=== PATIENT | male | born 1945 | race Caucasian/White ===

== ENCOUNTER 2021-01-23 17:46 | Inpatient (IN) | payer OTHER ==
[~2021-01-23] VITALS: Ht 175.3 cm; Wt 125.3 kg
[2021-01-23 21:33] VITALS: BP 128/83
[2021-01-23] MEDS ORDERED: MAGNESIUM HYDROXIDE 2,400 MG/30 ML ORAL.SUSP. PO PRN (21:45)
[2021-01-23] MEDS ORDERED: METHYL SALICYLATE/MENTHOL TOPICAL OINTMENT 57GM TUBE. TP PRN (21:45)
[2021-01-23] MEDS ORDERED: MAG HYDROX/AL HYDROX/SIMETH 30 ML ORAL.SUSP PO PRN (21:45)
[2021-01-23] MEDS ORDERED: DILT60TA PO (22:44)
[2021-01-23] MEDS ORDERED: FAMO20TA5 PO (22:44)
[2021-01-23] MEDS ORDERED: METO25TA4 PO (22:44)
[2021-01-23] MEDS ORDERED: FINA5TAB4 PO (22:44)
[2021-01-23] MEDS ORDERED: TAMS0.4C97 PO (22:44)
[2021-01-23] MEDS ORDERED: POTA-121 PO (22:44)
[2021-01-23] MEDS ORDERED: HALO1TAB PO (22:44)
[2021-01-23] MEDS ORDERED: DIVA250T PO (22:44)
[2021-01-23] MEDS ORDERED: CLOT15CR23 TP (22:44)
[2021-01-23] MEDS ORDERED: CARB15DR3 EACHEYE (22:44)
[2021-01-23] MEDS ORDERED: TRAZ-125 PO (22:44)
[2021-01-23] MEDS ORDERED: DOCU100C28 PO (22:44)
[2021-01-23] MEDS ORDERED: CIME200T6 PO (22:44)
[2021-01-23] MEDS ORDERED: FURO40TA4 PO (22:44)
[2021-01-23] MEDS ORDERED: POLY2500 PO (22:44)
[2021-01-23] MEDS ORDERED: APIX5TAB3 PO (22:44)
[2021-01-23] MEDS ORDERED: PECT2.8L3 MM (22:44)
[2021-01-23] MEDS ORDERED: CLOTRIMAZOLE 1% TOPICAL CREAM 30GM TUBE. TP PRN (23:00)
[2021-01-23] MEDS ORDERED: ANTI-COAG MONITOR BY PHARMACY. MC PRN (23:15)
[2021-01-23] MEDS ORDERED: BENZOCAINE/MENTHOL LOZNGE 18'S BOX. PO PRN (23:15)
[2021-01-23] MEDS ORDERED: POLYVINYL ALCOHOL 1.4% OPHTH SOLUTION 15ML BOTTLE. OU PRN (23:15)
[2021-01-24 03:53] LABS: BACTERIA,URINE 0 /HPF (0-FEW); BILIRUBIN,URINE NEG (NEG); CLARITY,URINE CLEAR; COLOR,URINE YELLOW; GLUCOSE,URINE NEG (NEG); NITRITE,URINE NEG (NEG); RBC,URINE 0 /HPF (0-2); WBC,URINE 0 /HPF (0-4)
[2021-01-24 06:30] LABS: BASO % 1 % (0-3); EOS # 0.3 x10^3/uL (0.0-0.7); EOS % 5 % (0-3); HEMATOCRIT 44.1 % (39.0-53.0); HEMOGLOBIN 14.5 g/dL (13.0-17.5); LYMPH # 1.5 x10^3/uL (1.0-4.8); LYMPH % 28 % (24-48); MEAN CORPUSCULAR HEMOGLOBIN 31 pg (25-35); MEAN CORPUSCULAR HGB CONC 33 g/dL (31-37); MEAN CORPUSCULAR VOLUME 95 fL (79-100); MONO # 0.8 x10^3/uL (0.0-1.1); MONO % 16 % (0-9); NEUT # 2.6 x10^3uL (1.8-7.7); NEUT % 50 % (31-73); PLATELET COUNT 196 x10^3/uL (140-400); RED BLOOD COUNT 4.63 x10^6/uL (4.30-5.70); RED CELL DISTRIBUTION WIDTH 13.7 % (11.5-14.5); WHITE BLOOD COUNT 5.2 x10^3/uL (4.0-11.0)
[2021-01-24 06:34] VITALS: BP 112/73
[2021-01-24 06:39] LABS: MAGNESIUM 2.4 mg/dL (1.8-2.4)
[2021-01-24 06:40] LABS: ALBUMIN/GLOBULIN RATIO 0.7 (1.0-1.7); CALCIUM 9.9 mg/dL (8.5-10.1); CREATININE 0.7 mg/dL (0.7-1.3); GFR 110.2; POTASSIUM 4.4 mmol/L (3.5-5.1); TOTAL BILIRUBIN 0.5 mg/dL (0.2-1.0); TOTAL PROTEIN 7.2 g/dL (6.4-8.2)
[2021-01-24 06:41] LABS: VAL ACID 26 mcg/mL (50-100)
[2021-01-24] MEDS ORDERED: CIMETIDINE 200 MG PO SCH (09:00)
[2021-01-24] MEDS ORDERED: HALOPERIDOL 1 MG TABLET PO SCH (09:00)
[2021-01-24] MEDS: POTASSIUM CHLORIDE 20 MEQ TABLET.ER. PO SCH (09:06)
[2021-01-24] MEDS: FUROSEMIDE 40 MG TABLET PO SCH (09:06)
[2021-01-24] MEDS: DOCUSATE SODIUM 100 MG CAPSULE PO SCH (09:07)
[2021-01-24] MEDS: FAMOTIDINE 20 MG TABLET PO SCH (09:07)
[2021-01-24] MEDS: DIVALPROEX SODIUM 250 MG TABLET.DR. PO SCH ×2 (09:07→20:37)
[2021-01-24] MEDS: FINASTERIDE 5 MG TABLET. PO SCH (09:07)
[2021-01-24] MEDS: TAMSULOSIN 0.4 MG CAP.ER.24H. PO SCH (09:08)
[2021-01-24] MEDS: APIXABAN 5 MG TABLET. PO SCH ×2 (09:08→20:37)
[2021-01-24] MEDS: METOPROLOL TART IMMED RELEASE 25 MG TABLET. PO SCH ×2 (09:08→20:38)
[2021-01-24] MEDS: NYSTATIN TOPICAL POWDER 15GM BOTTLE. TP SCH ×2 (09:09→20:36)
[2021-01-24 15:47] VITALS: BP 103/71
--- NOTE | 2021-01-24 16:48 | EKG ---
[address] [address] Test Date: 2021-01-24 Test Time: 15:24:44 Pat Name: ABHINAV WILD Department: Room: [facility] 1 Gender: M Continuous Drier Helper: : [id number] Requested By: AURA HOLDER Order Number: [id number] Reading MD: Chau Reich MD Measurements Intervals [place] Rate: P: SD: QRS: QRSD: T: QT: QTc: Interpretive Statements PROBABLE ATRIAL FIBRILLATION POOR QUALITY EKG. Electronically Signed On 01-26-2021 20:45:22 OFFICE MESSENGER HELPER by Chau Reich MD
[2021-01-24] MEDS: POLYETHYLENE GLYCOL 3350 17 GM PACKET. PO SCH (16:55)
[2021-01-24 19:46] LABS: THYROID STIM HORMONE (TSH) 1.73 uIU/mL (0.358-3.740)
[2021-01-24] MEDS: HALOPERIDOL 1 MG TABLET PO SCH (20:37)
[2021-01-24] MEDS: traZODone 100 MG TABLET. PO SCH (20:38)
--- NOTE | 2021-01-24 21:12 | PDOC ---
Exam Note: Elier Note: Please also refer to the separate dictated note~for this date of service dictated separately.~Patient seen individually. Discussed the patient with Nursing staff reviewed the chart.~Reviewed interim history and current functioning. Reviewed vital signs,~Labs/ Radiology~and current medications noted below. Continue current treatment with the changes noted in the dictated addendum note Assessment: Vital Signs/I&O: Vital Signs Date Time Temp Pulse Resp B/P (MAP) Pulse Ox O2 Delivery O2 Flow Rate FiO2 01/24/21 20:38 78 103/71 01/24/21 15:47 97.7 20 94 I & O 01/23/21 01/23/21 01/24/21 15:00 23:00 07:00 Intake Total 0 ml Balance 0 ml Labs: Laboratory Tests Test 01/24/21 02:25 01/24/21 06:06 Urine Collection Type Unknown Urine Color Yellow Urine Clarity Clear Urine pH 8.5 Urine Specific [place] 1.015 Urine Protein Neg (NEG-TRACE) Urine Glucose (UA) Neg mg/dL (NEG) Urine Ketones (Stick) Neg mg/dL (NEG) Urine Blood Neg (NEG) Urine Nitrite Neg (NEG) Urine Bilirubin Neg (NEG) Urine Urobilinogen Dipstick 1.0 mg/dL (0.2 mg/dL) Urine Leukocyte Esterase Neg (NEG) Urine RBC 0 /HPF (0-2) Urine WBC 0 /HPF (0-4) Urine Squamous Epithelial Cells None /LPF Urine Bacteria 0 /HPF (0-FEW) White Blood Count 5.2 x10^3/uL (4.0-11.0) Red Blood Count 4.63 x10^6/uL (4.30-5.70) Hemoglobin 14.5 g/dL (13.0-17.5) Hematocrit 44.1 % (39.0-53.0) Mean Corpuscular Volume 95 fL (79-100) Mean Corpuscular Hemoglobin 31 pg (25-35) Mean Corpuscular Hemoglobin Concent 33 g/dL (31-37) Red Cell Distribution Width 13.7 % (11.5-14.5) Platelet Count 196 x10^3/uL (140-400) Neutrophils (%) (Auto) 50 % (31-73) Lymphocytes (%) (Auto) 28 % (24-48) Monocytes (%) (Auto) 16 % (0-9) H Eosinophils (%) (Auto) 5 % (0-3) H Basophils (%) (Auto) 1 % (0-3) Neutrophils # (Auto) 2.6 x10^3uL (1.8-7.7) Lymphocytes # (Auto) 1.5 x10^3/uL (1.0-4.8) Monocytes # (Auto) 0.8 x10^3/uL (0.0-1.1) Eosinophils # (Auto) 0.3 x10^3/uL (0.0-0.7) Basophils # (Auto) 0.0 x10^3/uL (0.0-0.2) D-Dimer () 0.38 mg/L (0.00-0.50) Sodium Level 140 mmol/L (136-145) Potassium Level 4.4 mmol/L (3.5-5.1) Chloride Level 102 mmol/L (98-107) Carbon Dioxide Level 34 mmol/L (21-32) H Anion Gap 4 (6-14) L Blood Urea Nitrogen 8 mg/dL (8-26) Creatinine 0.7 mg/dL (0.7-1.3) Estimated GFR (Cockcroft-Gault) 110.2 BUN/Creatinine Ratio 11 (6-20) Glucose Level 95 mg/dL (70-99) Calcium Level 9.9 mg/dL (8.5-10.1) Magnesium Level 2.4 mg/dL (1.8-2.4) Iron Level 47 ug/dL (65-175) L Total Iron Binding Capacity 280 ug/dL (250-450) Iron Saturation 17 % (15-34) Total Bilirubin 0.5 mg/dL (0.2-1.0) Aspartate Amino Transferase (AST) 30 U/L (15-37) Alanine Aminotransferase (ALT) 38 U/L (16-63) Alkaline Phosphatase 82 U/L (46-116) Total Protein 7.2 g/dL (6.4-8.2) Albumin 3.0 g/dL (3.4-5.0) L Albumin/Globulin Ratio 0.7 (1.0-1.7) L Triglycerides Level 73 mg/dL (0-150) Cholesterol Level 162 mg/dL (0-200) LDL Cholesterol, Calculated 95 mg/dL (0-100) VLDL Cholesterol, Calculated 14 mg/dL (0-40) Non-HDL Cholesterol Calculated 109 mg/dL (0-129) HDL Cholesterol 53 mg/dL (40-60) Cholesterol/HDL Ratio 3.0 Vitamin B12 Level 614 pg/mL (247-911) 25-Hydroxy Vitamin D Total 23.5 ng/mL (30-100) L Thyroid Stimulating Hormone (TSH) 1.730 uIU/mL (0.358-3.740) Valproic Acid Level 26 mcg/mL (50-100) L Valproic Acid Last Dose Date 01/23/21 Valproic Acid Last Dose Time 0900 Treponema pallidum Antibody Nonreactive (Nonreactive) Current Medications: Meds: Current Medications Medications (Trade) Dose Ordered Sig/Stuart Route PRN Reason Start Time Stop Time Status Last Admin Dose Admin Divalproex Sodium (Depakote) 250 mg BID PO 01/24/21 09:00 01/24/21 20:37 Haloperidol (Haldol) 1 mg BID PO 01/24/21 09:00 01/24/21 19:37 DC 01/24/21 09:08 Trazodone HCl (Desyrel) 100 mg QHS PO 01/24/21 21:00 01/24/21 20:38 Apixaban (Eliquis) 5 mg BID PO 01/24/21 09:00 01/24/21 20:37 Docusate Sodium (Colace) 100 mg DAILY PO 01/24/21 09:00 01/24/21 09:07 Famotidine (Pepcid) 20 mg DAILY PO 01/24/21 09:00 01/24/21 09:07 Finasteride (Proscar) 5 mg DAILY PO 01/24/21 09:00 01/24/21 09:07 Furosemide (Lasix) 40 mg DAILY PO 01/24/21 09:00 01/24/21 09:06 Metoprolol Tartrate (Lopressor) 25 mg BID PO 01/24/21 09:00 01/24/21 09:08 Potassium Chloride (Klor-Con) 20 meq DAILY PO 01/24/21 09:00 01/24/21 09:06 Tamsulosin HCl (Flomax) 0.4 mg DAILY PO 01/24/21 09:00 01/24/21 09:08 Diltiazem HCl (Cardizem 24hr Cd) 120 mg DAILY PO 01/24/21 09:00 01/24/21 09:07 Polyethylene Glycol (miraLAX) 17 gm QMWF PO 01/24/21 16:00 01/24/21 16:55 Nystatin (Nystop) 1 lalo BID TP 01/24/21 09:00 01/24/21 20:36 Haloperidol (Haldol) 1 mg QHS PO 01/24/21 21:00 01/24/21 20:37 I have reviewed the current psychotropics carefully including drug interactions. Risk benefit ratio favors no change other than as noted in my dictated progress note. AURA HOLDER MD Jan 24, 2021 21:12
[2021-01-24 22:38] LABS: THYROXINE 6.4 ug/dL (4.5-12.0)
--- NOTE | 2021-01-24 23:00 | HP ---
DATE OF SERVICE: 01/24/2021 ADMIT DATE: 01/23/2021 PSYCHIATRIC ADMISSION HISTORY/EVALUATION IDENTIFYING DATA: The patient is a 75-year-old male, referred to us from [facility] by his primary care physician, psychiatrist after he was sent to the [facility] on account of an acute exacerbation of his schizoaffective disorder, bipolar type, depressed. The patient had been getting progressively more depressed, hopeless, helpless, worthless, had voiced suicidal ideation with a plan to jump out of a moving van that was taking him to the [facility]. At the Emergency Room in the [facility], he was found to be medically stable, though he had a mild bilateral atelectasis causing some drop in his oxygen saturations and I had talked to Dr. Gillis at the [facility] Emergency Room prior to his transfer to us. He had been depressed about his health issues and being in a [facility], had failed outpatient psychiatric interventions and outpatient psychiatric interventions at [facility] and he was referred for inpatient psychiatric stabilization. CHIEF COMPLAINT: "Yes, I've been depressed. I do have mood swings. Rosa, Rosa, Rosa." The patient was yelling out for the nursing manager, wanting some assistance with lowering his bed, somewhat obsessive, agitated, depressed. HISTORY OF PRESENT ILLNESS: The patient has a long history of schizoaffective disorder, bipolar type. Recently, he has been more depressed, hopeless, helpless, worthless with sleep and appetite changes. He has been paranoid. He has expressed suicidal ideation as above with a plan, but no homicidal ideation. PAST PSYCHIATRIC HISTORY: As above. MEDICAL HISTORY: Hypertension, hyperlipidemia, type 2 diabetes mellitus, atrial fibrillation, schizotypal personality disorder, obesity, impaired ambulation. ALLERGIES: LURASIDONE, ABILIFY, OLANZAPINE, RISPERDAL, VENLAFAXINE, MIRTAZAPINE. Accu-Cheks daily. DIET: ADA. Takes medications whole. Ambulates with walker and wheelchair. CURRENT PSYCHOTROPICS: Depakote 250 mg b.i.d., Haldol 1 mg b.i.d., trazodone 100 mg at bedtime. FAMILY HISTORY: Noncontributory. SOCIAL HISTORY: No history of alcohol, drug abuse, physical/sexual/elder abuse. He is not known to be a perpetrator. Reaction to hospitalization: The patient accepting of it. ASSETS: Supportive family. Supportive living at the [facility]. REVIEW OF SYSTEMS: Ambulation impaired. No CV, , pulmonary, eye, ENT system symptoms on review. MENTAL STATUS EXAM: The patient is oriented to himself, situation. He knew it was 01/2021, president was President Pretty and before him was President Christine, but he felt the date was the . 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 He states he has 5 biological children and 2 "borrowed." Mood is depressed, anxious, somewhat paranoid. No active suicidal or homicidal ideation. Short-term memory has some impairment. Attention span is short. IMPRESSION: Schizoaffective disorder, bipolar type, depressed. Personality disorder, unspecified; anxiety disorder, unspecified; impulse control disorder. Rest as above. PLAN: Admit to Geropsychiatry unit at [facility]. I will see the patient daily individually from a psychiatric standpoint, medical followup, Dr. Padron/Dr. Carrasco. Continue the patient on his current psychotropics. Start Zyprexa p.r.n. 2.5 mg q.2 hours, max 10 mg in 24 hours for psychosis, agitation. The patient does have some tremors. We will reduce the Haldol from 1 mg b.i.d. to 1 mg at bedtime. Consult Dr. Barrera, Neurology consult as well. Rule out Parkinson's. Check a valproic acid level, adjust to reach therapeutic level and may consider adding SSRIs for his mood symptom or Wellbutrin depending on baseline assessment. ESTIMATED LENGTH OF STAY: 10-12 days. DISPOSITION PLANS: Back to [facility] when stable. ELIAZAR/ROMINA DR: Ramya TID: [id number]
--- NOTE | 2021-01-24 23:17 | CONS ---
DATE OF CONSULTATION: 01/24/[address]: Chris TID: [id number]
[2021-01-25 00:06] LABS: HEMOGLOBIN A1C 5.9 % (4.8-5.6)
[2021-01-25] MEDS: ACETAMINOPHEN 325 MG TABLET PO PRN ×3 (02:19→23:20)
--- NOTE | 2021-01-25 03:38 | CONS ---
DATE OF CONSULTATION: 01/24/2021 REASON FOR CONSULTATION: Medical management. HISTORY OF PRESENT ILLNESS: The patient is a 75-year-old male patient who was referred from [facility] on account of suicidal ideation with plans to jump from the van that he is unable to remain safe, depressed by health issues and being in a shelter. He apparently was admitted to the hospital after an appointment with the patient's psychiatrist and he was [facility] for inpatient psychiatric stabilization. PAST MEDICAL HISTORY: Significant for hypertension, hyperlipidemia, type 2 diabetes mellitus. He is also having morbid obesity, atrial fibrillation. He has a mood disorder and schizotypal personality disorder. He has also schizoaffective disorder. ALLERGIES: HE IS ALLERGIC TO ARIPIPRAZOLE, LURASIDONE, MIRTAZAPINE, OLANZAPINE, RISPERIDONE AND VENLAFAXINE. MEDICATIONS: He is currently on tamsulosin 0.4 mg once a day, apixaban 5 mg twice a day, metoprolol tartrate 25 mg twice a day, diltiazem 120 mg once a day, divalproex sodium 250 twice a day, trazodone 100 mg at bedtime, haloperidol 1 mg twice a day, potassium chloride 20 mEq once a day, furosemide 40 mg daily, carboxymethylcellulose for Refresh Optive eyedrops, 1 drop to both eyes every 8 hours, pectin 2.8 mg lozenges one every 3 hours as needed, Colace 100 mg once a day. He is also on cimetidine 200 mg twice a day, famotidine 20 mg once a day, clotrimazole cream apply topically twice a day, finasteride for Proscar 5 mg once a day, polyethylene glycol 17 grams daily. FAMILY HISTORY: Noncontributory. SOCIAL HISTORY: He is , has been living in the shelter for a year and a half. He does not smoke, drink alcohol or use recreational drugs. REVIEW OF SYSTEMS: As per history of present illness. PHYSICAL EXAMINATION: GENERAL: When I saw him, he was sitting comfortably in his wheelchair in no apparent respiratory distress. There was no pallor, jaundice, cyanosis, no lymphadenopathy, no thyromegaly, no jugular venous distention. Mild left lower extremity edema, more than the right. VITAL SIGNS: His heart rate was 78, blood pressure is 103/71, temperature was 97.7, respiratory rate 20, and oxygen saturation was 94% on room air. HEAD, EYES, EARS, NOSE, AND THROAT: Normocephalic, atraumatic. NECK: Supple. HEART: Normal first and second heart sounds, no gallop or murmur. CHEST: Clear to auscultation, no crepitation or rhonchi. ABDOMEN: Distended, soft, nontender. NEUROLOGIC: He was awake, alert, responding appropriately. All cranial nerves intact. He moves extremities without difficulty. He does have some parkinsonian features. LABORATORY DATA: Showed a white cell count of 5200, hemoglobin 14.5, hematocrit 44, MCV 95 and platelet count of 196,000 with normal manual differential. His chemistry showed a serum sodium 140, potassium 4.4, chloride 102, bicarbonate 34, anion gap of 4, BUN 8, creatinine 0.7. Estimated GFR was 110 mL per minute. His glucose was 95, calcium was 9.9, magnesium 2.4. Total bilirubin, AST, ALT, alkaline phosphatase were normal. Total protein was 7.2, albumin 3. His prothrombin time, his D-dimer was 0.38 mg per liter. Urinalysis essentially unremarkable and toxic screen showed his valproic acid was only 26 mcg per mL with a therapeutic range of 50-100. ASSESSMENT AND PLAN: In summary, this is a 75-year-old male patient who was [facility] on account of suicidal ideation with a plan to jump from the van. The patient feels that he is unable to remain safe, depressed by health issues being in a shelter. He has multiple medical problems including hypertension, hyperlipidemia, type 2 diabetes mellitus, obesity, atrial fibrillation. He has multiple psychiatric problems including mood disorder. He has schizotypal personality and schizoaffective disorder and obviously what seemed to be severe depression. Medically; however, he seemed to be stable. His vital signs are all within normal range. His lab work are all within normal range. He might be retaining carbon dioxide as his sodium bicarbonate is 34. He also seemed to have reduced blinking and masked face and probably some rigidity. I will consult Dr. Barrera to see him to rule out the possibility of Parkinson's disease, that might obviously make his depression worse. Other than that, I will follow all his lab works that are still pending and make any necessary recommendation. Thank you, Dr. Mathias, for allowing me to participate in the care of this patient. AMANDA/RICK/TAMI DR: Chris TID: [id number]
[2021-01-25 06:01] VITALS: BP 119/82
--- NOTE | 2021-01-25 07:03 | PDOC ---
Exam Note: Elier Note: This note is a late entry for 01/24/2021 covers elements not covered in my initial note. Subjective: The patient was seen individually in the evening of 01/24/2021 with Elizabeth GAVIRIA, discussed and reviewed the chart. The patient slept 5-1/4 previous night. She denies suicidal ideation but does appear depressed. Rest of the assessment as per my initial intake. We will go ahead and start the patient on Zoloft 25 mg a day for 3 days and then 50 mg a day thereafter. Assessment: Vital Signs/I&O: Vital Signs Date Time Temp Pulse Resp B/P (MAP) Pulse Ox O2 Delivery O2 Flow Rate FiO2 01/25/21 06:01 97.6 94 20 119/82 (94) 93 Nasal Cannula 2.0 I & O 01/24/21 01/24/21 01/25/21 15:00 23:00 07:00 Intake Total 487 ml 720 ml Balance 487 ml 720 ml Current Medications: Meds: Current Medications Medications (Trade) Dose Ordered Sig/Stuart Route PRN Reason Start Time Stop Time Status Last Admin Dose Admin Acetaminophen (Tylenol) 650 mg PRN Q6HRS PRN PO MILD PAIN / TEMP > 100.3'F 01/23/21 21:45 01/25/21 02:19 Multi-Ingredient Ointment (Analgesic [place]) 1 lalo PRN QID PRN TP MUSCLE PAIN 01/23/21 21:45 Al Hydroxide/Mg Hydroxide (Mylanta Plus Xs) 15 ml PRN AFTMEALHC PRN PO DYSPEPSIA 01/23/21 21:45 Magnesium Hydroxide (Milk Of Magnesia) 2,400 mg PRN QHS PRN PO CONSTIPATION 01/23/21 21:45 Divalproex Sodium (Depakote) 250 mg BID PO 01/24/21 09:00 01/24/21 20:37 Haloperidol (Haldol) 1 mg BID PO 01/24/21 09:00 01/24/21 19:37 DC 01/24/21 09:08 Trazodone HCl (Desyrel) 100 mg QHS PO 01/24/21 21:00 01/24/21 20:38 Apixaban (Eliquis) 5 mg BID PO 01/24/21 09:00 01/24/21 20:37 Clotrimazole (Lotrimin) 1 lalo PRN Q12HR PRN TP REDNESS 01/23/21 23:00 Docusate Sodium (Colace) 100 mg DAILY PO 01/24/21 09:00 01/24/21 09:07 Famotidine (Pepcid) 20 mg DAILY PO 01/24/21 09:00 01/24/21 09:07 Finasteride (Proscar) 5 mg DAILY PO 01/24/21 09:00 01/24/21 09:07 Furosemide (Lasix) 40 mg DAILY PO 01/24/21 09:00 01/24/21 09:06 Metoprolol Tartrate (Lopressor) 25 mg BID PO 01/24/21 09:00 01/24/21 09:08 Potassium Chloride (Klor-Con) 20 meq DAILY PO 01/24/21 09:00 01/24/21 09:06 Tamsulosin HCl (Flomax) 0.4 mg DAILY PO 01/24/21 09:00 01/24/21 09:08 Artificial Tears (Artificial Tears) 1 drop PRN Q8HRS PRN OU DRY EYE 01/23/21 23:15 Non-Formulary Medication (Cimetidine ) 200 mg BID PO 01/24/21 09:00 UNV Diltiazem HCl (Cardizem 24hr Cd) 120 mg DAILY PO 01/24/21 09:00 01/24/21 09:07 Throat Lozenges (Cepacol Sore Throat Lozenge) 1 brayan PRN Q3HRS PRN PO SORE THROAT 01/23/21 23:15 Polyethylene Glycol (miraLAX) 17 gm QMWF PO 01/24/21 16:00 01/24/21 16:55 Info (Anti-Coagulation Monitoring By Pharmacy) 1 each PRN DAILY PRN MC PER PROTOCOL 01/23/21 23:15 Nystatin (Nystop) 1 lalo BID TP 01/24/21 09:00 01/24/21 20:36 Haloperidol (Haldol) 1 mg QHS PO 01/24/21 21:00 01/24/21 20:37 Sertraline HCl (Zoloft) 25 mg DAILY PO 01/25/21 09:00 01/27/21 12:00 Sertraline HCl (Zoloft) 50 mg DAILY PO 01/28/21 09:00 Current Medications Medications (Trade) Dose Ordered Sig/Stuart Route PRN Reason Start Time Stop Time Status Last Admin Dose Admin Divalproex Sodium (Depakote) 250 mg BID PO 01/24/21 09:00 01/24/21 20:37 Haloperidol (Haldol) 1 mg BID PO 01/24/21 09:00 01/24/21 19:37 DC 01/24/21 09:08 Trazodone HCl (Desyrel) 100 mg QHS PO 01/24/21 21:00 01/24/21 20:38 Apixaban (Eliquis) 5 mg BID PO 01/24/21 09:00 01/24/21 20:37 Docusate Sodium (Colace) 100 mg DAILY PO 01/24/21 09:00 01/24/21 09:07 Famotidine (Pepcid) 20 mg DAILY PO 01/24/21 09:00 01/24/21 09:07 Finasteride (Proscar) 5 mg DAILY PO 01/24/21 09:00 01/24/21 09:07 Furosemide (Lasix) 40 mg DAILY PO 01/24/21 09:00 01/24/21 09:06 Metoprolol Tartrate (Lopressor) 25 mg BID PO 01/24/21 09:00 01/24/21 09:08 Potassium Chloride (Klor-Con) 20 meq DAILY PO 01/24/21 09:00 01/24/21 09:06 Tamsulosin HCl (Flomax) 0.4 mg DAILY PO 01/24/21 09:00 01/24/21 09:08 Diltiazem HCl (Cardizem 24hr Cd) 120 mg DAILY PO 01/24/21 09:00 01/24/21 09:07 Polyethylene Glycol (miraLAX) 17 gm QMWF PO 01/24/21 16:00 01/24/21 16:55 Nystatin (Nystop) 1 lalo BID TP 01/24/21 09:00 01/24/21 20:36 Haloperidol (Haldol) 1 mg QHS PO 01/24/21 21:00 01/24/21 20:37 I have reviewed the current psychotropics carefully including drug interactions. Risk benefit ratio favors no change other than as noted in my dictated progress note. Diagnosis: Problems: (1) Schizoaffective disorder, bipolar type (2) Bipolar disorder, current episode depressed, severe, with psychotic features (3) Major depressive disorder with psychotic features (4) Anxiety disorder, unspecified (5) Impulse control disorder, unspecified (6) Personality disorder, unspecified AURA HOLDER MD Jan 25, 2021 07:03
[2021-01-25] MEDS: NYSTATIN TOPICAL POWDER 15GM BOTTLE. TP SCH ×2 (08:35→20:38)
[2021-01-25] MEDS: DIVALPROEX SODIUM 250 MG TABLET.DR. PO SCH ×2 (08:36→20:38)
[2021-01-25] MEDS: TAMSULOSIN 0.4 MG CAP.ER.24H. PO SCH (08:36)
[2021-01-25] MEDS: FUROSEMIDE 40 MG TABLET PO SCH (08:36)
[2021-01-25] MEDS: POTASSIUM CHLORIDE 20 MEQ TABLET.ER. PO SCH (08:36)
[2021-01-25] MEDS: DOCUSATE SODIUM 100 MG CAPSULE PO SCH (08:36)
[2021-01-25] MEDS: FAMOTIDINE 20 MG TABLET PO SCH (08:36)
[2021-01-25] MEDS: FINASTERIDE 5 MG TABLET. PO SCH (08:36)
[2021-01-25] MEDS: APIXABAN 5 MG TABLET. PO SCH ×2 (08:36→20:37)
[2021-01-25] MEDS: METOPROLOL TART IMMED RELEASE 25 MG TABLET. PO SCH ×2 (08:36→20:38)
[2021-01-25] MEDS: SERTRALINE 25 MG TABLET. PO SCH (08:40)
[2021-01-25 09:17] LABS: BASO % 1 % (0-3); EOS # 0.2 x10^3/uL (0.0-0.7); EOS % 4 % (0-3); HEMATOCRIT 45.4 % (39.0-53.0); HEMOGLOBIN 14.9 g/dL (13.0-17.5); LYMPH # 1.2 x10^3/uL (1.0-4.8); LYMPH % 22 % (24-48); MEAN CORPUSCULAR HEMOGLOBIN 31 pg (25-35); MEAN CORPUSCULAR HGB CONC 33 g/dL (31-37); MEAN CORPUSCULAR VOLUME 96 fL (79-100); MONO # 0.7 x10^3/uL (0.0-1.1); MONO % 12 % (0-9); NEUT # 3.3 x10^3uL (1.8-7.7); NEUT % 61 % (31-73); PLATELET COUNT 204 x10^3/uL (140-400); RED BLOOD COUNT 4.75 x10^6/uL (4.30-5.70); RED CELL DISTRIBUTION WIDTH 13.9 % (11.5-14.5); WHITE BLOOD COUNT 5.4 x10^3/uL (4.0-11.0)
[2021-01-25 09:39] LABS: ALBUMIN/GLOBULIN RATIO 0.7 (1.0-1.7); ALK PHOS 79 U/L (46-116); ALT (SGPT) 35 U/L (16-63); ANION GAP 6 (6-14); AST (SGOT) 29 U/L (15-37); BLOOD UREA NITROGEN 11 mg/dL (8-26); BUN/CREATININE RATIO 16 (6-20); CALCIUM 10.1 mg/dL (8.5-10.1); CARBON DIOXIDE 31 mmol/L (21-32); CHLORIDE 104 mmol/L (98-107); CREATININE 0.7 mg/dL (0.7-1.3); GFR 110.2; GLUCOSE 126 mg/dL (70-99); POTASSIUM 4.4 mmol/L (3.5-5.1); SODIUM 141 mmol/L (136-145); TOTAL BILIRUBIN 0.5 mg/dL (0.2-1.0); TOTAL PROTEIN 7.3 g/dL (6.4-8.2)
[2021-01-25 09:44] LABS: VAL ACID 30 mcg/mL (50-100)
[2021-01-25 15:11] VITALS: BP 106/65
[2021-01-25] MEDS: rOPINIRole 0.5 MG TABLET. PO SCH (20:37)
[2021-01-25] MEDS: HALOPERIDOL 1 MG TABLET PO SCH (20:38)
[2021-01-25] MEDS: traZODone 100 MG TABLET. PO SCH (20:38)
--- NOTE | 2021-01-25 21:04 | PDOC ---
Exam Note: Elier Note: Please also refer to the separate dictated note~for this date of service dictated separately.~Patient seen individually. Discussed the patient with Nursing staff reviewed the chart.~Reviewed interim history and current functioning. Reviewed vital signs,~Labs/ Radiology~and current medications noted below. Continue current treatment with the changes noted in the dictated addendum note Assessment: Vital Signs/I&O: Vital Signs Date Time Temp Pulse Resp B/P (MAP) Pulse Ox O2 Delivery O2 Flow Rate FiO2 01/25/21 20:38 78 106/65 01/25/21 15:11 98.1 18 92 Room Air 01/25/21 06:01 2.0 I & O 01/24/21 01/24/21 01/25/21 15:00 23:00 07:00 Intake Total 487 ml 720 ml Balance 487 ml 720 ml Labs: Laboratory Tests Test 01/25/21 09:00 White Blood Count 5.4 x10^3/uL (4.0-11.0) Red Blood Count 4.75 x10^6/uL (4.30-5.70) Hemoglobin 14.9 g/dL (13.0-17.5) Hematocrit 45.4 % (39.0-53.0) Mean Corpuscular Volume 96 fL (79-100) Mean Corpuscular Hemoglobin 31 pg (25-35) Mean Corpuscular Hemoglobin Concent 33 g/dL (31-37) Red Cell Distribution Width 13.9 % (11.5-14.5) Platelet Count 204 x10^3/uL (140-400) Neutrophils (%) (Auto) 61 % (31-73) Lymphocytes (%) (Auto) 22 % (24-48) L Monocytes (%) (Auto) 12 % (0-9) H Eosinophils (%) (Auto) 4 % (0-3) H Basophils (%) (Auto) 1 % (0-3) Neutrophils # (Auto) 3.3 x10^3uL (1.8-7.7) Lymphocytes # (Auto) 1.2 x10^3/uL (1.0-4.8) Monocytes # (Auto) 0.7 x10^3/uL (0.0-1.1) Eosinophils # (Auto) 0.2 x10^3/uL (0.0-0.7) Basophils # (Auto) 0.0 x10^3/uL (0.0-0.2) Sodium Level 141 mmol/L (136-145) Potassium Level 4.4 mmol/L (3.5-5.1) Chloride Level 104 mmol/L (98-107) Carbon Dioxide Level 31 mmol/L (21-32) Anion Gap 6 (6-14) Blood Urea Nitrogen 11 mg/dL (8-26) Creatinine 0.7 mg/dL (0.7-1.3) Estimated GFR (Cockcroft-Gault) 110.2 BUN/Creatinine Ratio 16 (6-20) Glucose Level 126 mg/dL (70-99) H Calcium Level 10.1 mg/dL (8.5-10.1) Total Bilirubin 0.5 mg/dL (0.2-1.0) Aspartate Amino Transferase (AST) 29 U/L (15-37) Alanine Aminotransferase (ALT) 35 U/L (16-63) Alkaline Phosphatase 79 U/L (46-116) Total Protein 7.3 g/dL (6.4-8.2) Albumin 3.0 g/dL (3.4-5.0) L Albumin/Globulin Ratio 0.7 (1.0-1.7) L Valproic Acid Level 30 mcg/mL (50-100) L Valproic Acid Last Dose Date 01/24/21 Valproic Acid Last Dose Time 2100 Current Medications: Meds: Laboratory Tests Test 01/25/21 09:00 White Blood Count 5.4 x10^3/uL Red Blood Count 4.75 x10^6/uL Hemoglobin 14.9 g/dL Hematocrit 45.4 % Mean Corpuscular Volume 96 fL Mean Corpuscular Hemoglobin 31 pg Mean Corpuscular Hemoglobin Concent 33 g/dL Red Cell Distribution Width 13.9 % Platelet Count 204 x10^3/uL Neutrophils (%) (Auto) 61 % Lymphocytes (%) (Auto) 22 % Monocytes (%) (Auto) 12 % Eosinophils (%) (Auto) 4 % Basophils (%) (Auto) 1 % Neutrophils # (Auto) 3.3 x10^3uL Lymphocytes # (Auto) 1.2 x10^3/uL Monocytes # (Auto) 0.7 x10^3/uL Eosinophils # (Auto) 0.2 x10^3/uL Basophils # (Auto) 0.0 x10^3/uL Sodium Level 141 mmol/L Potassium Level 4.4 mmol/L Chloride Level 104 mmol/L Carbon Dioxide Level 31 mmol/L Anion Gap 6 Blood Urea Nitrogen 11 mg/dL Creatinine 0.7 mg/dL Estimated GFR (Cockcroft-Gault) 110.2 BUN/Creatinine Ratio 16 Glucose Level 126 mg/dL Calcium Level 10.1 mg/dL Total Bilirubin 0.5 mg/dL Aspartate Amino Transf (AST/SGOT) 29 U/L Alanine Aminotransferase (ALT/SGPT) 35 U/L Alkaline Phosphatase 79 U/L Total Protein 7.3 g/dL Albumin 3.0 g/dL Albumin/Globulin Ratio 0.7 Valproic Acid (Depakene) Level 30 mcg/mL Valproic Acid Last Dose Date 01/24/21 Valproic Acid Last Dose Time 2100 Current Medications Medications (Trade) Dose Ordered Sig/Stuart Route PRN Reason Start Time Stop Time Status Last Admin Dose Admin Acetaminophen (Tylenol) 650 mg PRN Q6HRS PRN PO MILD PAIN / TEMP > 100.3'F 01/23/21 21:45 01/25/21 14:30 Multi-Ingredient Ointment (Analgesic [place]) 1 lalo PRN QID PRN TP MUSCLE PAIN 01/23/21 21:45 Al Hydroxide/Mg Hydroxide (Mylanta Plus Xs) 15 ml PRN AFTMEALHC PRN PO DYSPEPSIA 01/23/21 21:45 Magnesium Hydroxide (Milk Of Magnesia) 2,400 mg PRN QHS PRN PO CONSTIPATION 01/23/21 21:45 Divalproex Sodium (Depakote) 250 mg BID PO 01/24/21 09:00 01/25/21 20:38 Haloperidol (Haldol) 1 mg BID PO 01/24/21 09:00 01/24/21 19:37 DC 01/24/21 09:08 Trazodone HCl (Desyrel) 100 mg QHS PO 01/24/21 21:00 01/25/21 20:38 Apixaban (Eliquis) 5 mg BID PO 01/24/21 09:00 01/25/21 20:37 Clotrimazole (Lotrimin) 1 lalo PRN Q12HR PRN TP REDNESS 01/23/21 23:00 Docusate Sodium (Colace) 100 mg DAILY PO 01/24/21 09:00 01/25/21 08:36 Famotidine (Pepcid) 20 mg DAILY PO 01/24/21 09:00 01/25/21 08:36 Finasteride (Proscar) 5 mg DAILY PO 01/24/21 09:00 01/25/21 08:36 Furosemide (Lasix) 40 mg DAILY PO 01/24/21 09:00 01/25/21 08:36 Metoprolol Tartrate (Lopressor) 25 mg BID PO 01/24/21 09:00 01/25/21 20:38 Potassium Chloride (Klor-Con) 20 meq DAILY PO 01/24/21 09:00 01/25/21 08:36 Tamsulosin HCl (Flomax) 0.4 mg DAILY PO 01/24/21 09:00 01/25/21 08:36 Artificial Tears (Artificial Tears) 1 drop PRN Q8HRS PRN OU DRY EYE 01/23/21 23:15 Non-Formulary Medication (Cimetidine ) 200 mg BID PO 01/24/21 09:00 UNV Diltiazem HCl (Cardizem 24hr Cd) 120 mg DAILY PO 01/24/21 09:00 01/25/21 08:35 Throat Lozenges (Cepacol Sore Throat Lozenge) 1 brayan PRN Q3HRS PRN PO SORE THROAT 01/23/21 23:15 Polyethylene Glycol (miraLAX) 17 gm QMWF PO 01/24/21 16:00 01/24/21 16:55 Info (Anti-Coagulation Monitoring By Pharmacy) 1 each PRN DAILY PRN MC PER PROTOCOL 01/23/21 23:15 Nystatin (Nystop) 1 lalo BID TP 01/24/21 09:00 01/25/21 20:38 Haloperidol (Haldol) 1 mg QHS PO 01/24/21 21:00 01/25/21 20:38 Sertraline HCl (Zoloft) 25 mg DAILY PO 01/25/21 09:00 01/27/21 12:00 01/25/21 08:40 Sertraline HCl (Zoloft) 50 mg DAILY PO 01/28/21 09:00 Ropinirole HCl (Requip) 0.5 mg TID PO 01/25/21 21:00 01/25/21 20:37 Current Medications Medications (Trade) Dose Ordered Sig/Stuart Route PRN Reason Start Time Stop Time Status Last Admin Dose Admin Sertraline HCl (Zoloft) 25 mg DAILY PO 01/25/21 09:00 01/27/21 12:00 01/25/21 08:40 Ropinirole HCl (Requip) 0.5 mg TID PO 01/25/21 21:00 01/25/21 20:37 I have reviewed the current psychotropics carefully including drug interactions. Risk benefit ratio favors no change other than as noted in my dictated progress note. Diagnosis: Problems: (1) Schizoaffective disorder, bipolar type (2) Anxiety disorder, unspecified (3) Bipolar disorder, current episode depressed, severe, with psychotic features (4) Major depressive disorder with psychotic features (5) Impulse control disorder, unspecified (6) Personality disorder, unspecified AURA HOLDER MD Jan 25, 2021 21:04
[2021-01-26 06:05] VITALS: BP 110/70
[2021-01-26] MEDS: FINASTERIDE 5 MG TABLET. PO SCH (09:06)
[2021-01-26] MEDS: rOPINIRole 0.5 MG TABLET. PO SCH ×3 (09:07→20:48)
[2021-01-26] MEDS: POTASSIUM CHLORIDE 20 MEQ TABLET.ER. PO SCH (09:07)
[2021-01-26] MEDS: FUROSEMIDE 40 MG TABLET PO SCH (09:07)
[2021-01-26] MEDS: SERTRALINE 25 MG TABLET. PO SCH (09:08)
[2021-01-26] MEDS: APIXABAN 5 MG TABLET. PO SCH ×2 (09:08→20:49)
[2021-01-26] MEDS: TAMSULOSIN 0.4 MG CAP.ER.24H. PO SCH (09:08)
[2021-01-26] MEDS: DOCUSATE SODIUM 100 MG CAPSULE PO SCH (09:08)
[2021-01-26] MEDS: METOPROLOL TART IMMED RELEASE 25 MG TABLET. PO SCH ×2 (09:09→20:48)
[2021-01-26] MEDS: DIVALPROEX SODIUM 250 MG TABLET.DR. PO SCH (09:09)
[2021-01-26] MEDS: FAMOTIDINE 20 MG TABLET PO SCH (09:09)
[2021-01-26] MEDS: NYSTATIN TOPICAL POWDER 15GM BOTTLE. TP SCH ×2 (09:09→20:49)
[2021-01-26 15:55] VITALS: BP 103/71
[2021-01-26] MEDS: traZODone 100 MG TABLET. PO SCH (20:48)
[2021-01-26] MEDS: HALOPERIDOL 1 MG TABLET PO SCH (20:48)
[2021-01-26] MEDS: DIVALPROEX 125 MG CAP.SPRINK PO SCH (20:50)
--- NOTE | 2021-01-26 21:02 | PDOC ---
Exam Note: Elier Note: Please also refer to the separate dictated note~for this date of service dictated separately.~Patient seen individually. Discussed the patient with Nursing staff reviewed the chart.~Reviewed interim history and current functioning. Reviewed vital signs,~Labs/ Radiology~and current medications noted below. Continue current treatment with the changes noted in the dictated addendum note Assessment: Vital Signs/I&O: Vital Signs Date Time Temp Pulse Resp B/P (MAP) Pulse Ox O2 Delivery O2 Flow Rate FiO2 01/26/21 20:48 75 103/71 01/26/21 15:55 96.9 18 92 01/25/21 15:11 Room Air 01/25/21 06:01 2.0 I & O 01/25/21 01/25/21 01/26/21 14:59 22:59 06:59 Intake Total 860 ml 600 ml Balance 860 ml 600 ml Current Medications: Meds: Current Medications Medications (Trade) Dose Ordered Sig/Stuart Route PRN Reason Start Time Stop Time Status Last Admin Dose Admin Acetaminophen (Tylenol) 650 mg PRN Q6HRS PRN PO MILD PAIN / TEMP > 100.3'F 01/23/21 21:45 01/25/21 23:20 Multi-Ingredient Ointment (Analgesic [place]) 1 lalo PRN QID PRN TP MUSCLE PAIN 01/23/21 21:45 Al Hydroxide/Mg Hydroxide (Mylanta Plus Xs) 15 ml PRN AFTMEALHC PRN PO DYSPEPSIA 01/23/21 21:45 Magnesium Hydroxide (Milk Of Magnesia) 2,400 mg PRN QHS PRN PO CONSTIPATION 01/23/21 21:45 Divalproex Sodium (Depakote) 250 mg BID PO 01/24/21 09:00 01/26/21 19:53 DC 01/26/21 09:09 Haloperidol (Haldol) 1 mg BID PO 01/24/21 09:00 01/24/21 19:37 DC 01/24/21 09:08 Trazodone HCl (Desyrel) 100 mg QHS PO 01/24/21 21:00 01/26/21 20:48 Apixaban (Eliquis) 5 mg BID PO 01/24/21 09:00 01/26/21 20:49 Clotrimazole (Lotrimin) 1 lalo PRN Q12HR PRN TP REDNESS 01/23/21 23:00 Docusate Sodium (Colace) 100 mg DAILY PO 01/24/21 09:00 01/26/21 09:08 Famotidine (Pepcid) 20 mg DAILY PO 01/24/21 09:00 01/26/21 09:09 Finasteride (Proscar) 5 mg DAILY PO 01/24/21 09:00 01/26/21 09:06 Furosemide (Lasix) 40 mg DAILY PO 01/24/21 09:00 01/26/21 09:07 Metoprolol Tartrate (Lopressor) 25 mg BID PO 01/24/21 09:00 01/26/21 20:48 Potassium Chloride (Klor-Con) 20 meq DAILY PO 01/24/21 09:00 01/26/21 09:07 Tamsulosin HCl (Flomax) 0.4 mg DAILY PO 01/24/21 09:00 01/26/21 09:08 Artificial Tears (Artificial Tears) 1 drop PRN Q8HRS PRN OU DRY EYE 01/23/21 23:15 Non-Formulary Medication (Cimetidine ) 200 mg BID PO 01/24/21 09:00 UNV Diltiazem HCl (Cardizem 24hr Cd) 120 mg DAILY PO 01/24/21 09:00 01/26/21 09:08 Throat Lozenges (Cepacol Sore Throat Lozenge) 1 brayan PRN Q3HRS PRN PO SORE THROAT 01/23/21 23:15 Polyethylene Glycol (miraLAX) 17 gm QMWF PO 01/24/21 16:00 01/24/21 16:55 Info (Anti-Coagulation Monitoring By Pharmacy) 1 each PRN DAILY PRN MC PER PROTOCOL 01/23/21 23:15 Nystatin (Nystop) 1 lalo BID TP 01/24/21 09:00 01/26/21 20:49 Haloperidol (Haldol) 1 mg QHS PO 01/24/21 21:00 01/26/21 20:48 Sertraline HCl (Zoloft) 25 mg DAILY PO 01/25/21 09:00 01/27/21 12:00 01/26/21 09:08 Sertraline HCl (Zoloft) 50 mg DAILY PO 01/28/21 09:00 Ropinirole HCl (Requip) 0.5 mg TID PO 01/25/21 21:00 01/26/21 20:48 Divalproex Sodium (Depakote Sprinkles) 375 mg BID PO 01/26/21 20:00 01/26/21 20:50 Current Medications Medications (Trade) Dose Ordered Sig/Stuart Route PRN Reason Start Time Stop Time Status Last Admin Dose Admin Divalproex Sodium (Depakote Sprinkles) 375 mg BID PO 01/26/21 20:00 01/26/21 20:50 I have reviewed the current psychotropics carefully including drug interactions. Risk benefit ratio favors no change other than as noted in my dictated progress note. Diagnosis: Problems: (1) Schizoaffective disorder, bipolar type (2) Anxiety disorder, unspecified (3) Bipolar disorder, current episode depressed, severe, with psychotic features (4) Major depressive disorder with psychotic features (5) Impulse control disorder, unspecified (6) Personality disorder, unspecified AURA HOLDER MD Jan 26, 2021 21:02
[2021-01-26] MEDS: ACETAMINOPHEN 325 MG TABLET PO PRN (23:52)
[2021-01-27 06:10] VITALS: BP 115/73
--- NOTE | 2021-01-27 06:17 | CONS ---
DATE OF CONSULTATION: 01/25/2021 NEUROLOGY CONSULTATION REFERRING PHYSICIAN: Dr. Mathias/Dr. Padron. REASON FOR CONSULTATION: Tremor of the lower extremities, rule out Parkinson's disease. HISTORY OF PRESENT ILLNESS: This is a 75-year-old right-handed male who was admitted on 01/23/2021 from [facility] on account of suicidal ideation and possible plan to jump from the van. The patient has been depressed according to nursing staff. A neuro consult was requested because the patient has had intermittent tremor of the lower extremities and to rule out central nervous system pathology as Parkinson disease. Currently, the patient stated that the tremor has been ongoing for a while and probably several years. He denies any recent head injuries; however, he did admit to multiple falls in the past. The patient stated his tremor of the lower extremities, usually aggravated by anxiety and being upset. PAST MEDICAL HISTORY: Significant for hypertension, diabetes mellitus type 2, hyperlipidemia, atrial fibrillation and obesity. PAST PSYCHIATRIC HISTORY: Consistent with mood disorders, schizoid personality disorder and possible schizoaffective disorders. FAMILY HISTORY: Noncontributory. SOCIAL HISTORY: The patient is single. He reports that he lives in alf. He denies smoking, alcohol drinking or illicit drug use. CURRENT HOME MEDICATIONS: Include Tylenol, apixaban like Eliquis, artificial tears, ____ cream, diltiazem, Depakote Sprinkles, famotidine, Proscar for prostate enlargement, furosemide, haloperidol, metoprolol, multivitamins, potassium, sertraline, Flomax and trazodone at night. ALLERGIES: ARIPIPRAZOLE, GENETIC OF ABILIFY; LURASIDONE, MIRTAZAPINE, OLANZAPINE, RISPERIDONE, AND VENLAFAXINE. REVIEW OF SYSTEMS: A 10-point review of system was performed as mentioned above in history of present illness. PHYSICAL EXAMINATION: GENERAL: Obese male in no acute distress. He weighs 122.7 kilos. VITAL SIGNS: Blood pressure 106/65, respiratory rate 18, pulse is 78, temperature 98.1, oxygen saturation 92% on room air. HEENT: Normocephalic, atraumatic. otherwise unremarkable. NECK: Supple. Negative for carotid bruit, lymphadenopathy or thyromegaly. LUNGS: Clear to A and P. CARDIOVASCULAR: Regular rate and rhythm. Normal S1, S2. There is no S3, S4 or murmur. ABDOMEN: Soft. Bowel sounds positive. EXTREMITIES: Negative for cyanosis, clubbing or pedal edema. NEUROLOGIC: Mental status: The patient is alert and oriented x2. The speech is fluent. There is no language dysfunction. Memory, judgment and abstracting thinking are fair. The patient denies hallucination or delusion. Cranial nerves: Pupils are equal and reactive to light and accommodation. The extraocular movements are intact. There is no nystagmus. There is no facial, motor or sensory deficits. Hearing appeared to be intact. The palate is elevated symmetrically. Sternocleidomastoid muscles are powerful bilaterally. The patient shrugs his shoulders symmetrically and protrudes his tongue in the midline without fasciculation or atrophy. Motor exam: No focal muscle bulk wasting. The tone is normal. The strength is 5/5 throughout. The patient has resting tremor of both lower extremities with normal tone. Sensory examination revealed normal pinprick and light touch senses throughout. Deep tendon reflexes were symmetric and hypoactive with absent Achilles responses. Gait: The patient uses a chair for ambulation and sometimes uses a walker. LABORATORY DATA: Today revealed white blood cells of 5.4, hemoglobin 14.9, hematocrit 45.4, platelet count 204,000. Chemistry revealed a sodium of 141, potassium 4.4, chloride 104, CO2 of 31, BUN 11, creatinine 0.7, glucose 126, calcium 10.1. Liver enzymes are normal. Vitamin B12 is normal and vitamin D is low at 23.5 with normal thyroid profile. D-dimer is 0.38. Urinalysis is negative for urinary tract infection. Depakote level reveal low level at 30. RPR is nonreactive. IMPRESSION: 1. 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 2. Multiple medical problems includes diabetes mellitus, hypertension, hyperlipidemia. 3. Multiple psychiatric problems include schizoid personality and probably schizoaffective disorders, anxiety, depression and suicidal ideations. RECOMMENDATIONS: 1. We will start patient on dopamine agonist as ropinirole at 0.5 mg 3 times daily. 2. Treat the underlying multiple psychiatric disorders including anxiety. 3. Continue with current medical and psychiatric care. HARVEY/MICHAELLE/ROMERO DR: HARVEY/renu TID: [id number]
--- NOTE | 2021-01-27 07:27 | PDOC ---
Exam Note: Elier Note: This note is a late entry for 01/25/2021 covers elements not covered in my initial note. Subjective: The patient was seen individually in the evening of 01/25/2021 with Liang GAVIRIA, discussed and reviewed the chart. The patient slept 5-3/4 previous night. I met with the patient in his room. According to the nursing staff, he acts out to be somewhat helpless though he could do a lot more for himself. He is refusing to walk. Tremors are better but Dr. Barrera has been consulted and he has been started on ReQuip. Review of Systems: Ambulation impaired in wheelchair. He has vague somatic symptoms. No CV, , pulmonary, eye, ENT system symptoms on review. Mental Status Exam: The patient is reasonably oriented. Speech is coherent, rapid at times. Abstraction fair. Computation impaired. Language function intact. Attention span short. Mood and affect somewhat labile. Laboratory Data: Reviewed. Impression: Schizoaffective disorder bipolar type with psychotic features. Major depressive disorder, severe with psychotic features. Anxiety disorder unspecified. Plan: No change from initial note. Adjust Depakote to reach therapeutic level post labs. Make further adjustments as clinically indicated. Assessment: Vital Signs/I&O: Vital Signs Date Time Temp Pulse Resp B/P (MAP) Pulse Ox O2 Delivery O2 Flow Rate FiO2 01/27/21 06:10 97.0 63 20 115/73 (87) 95 Nasal Cannula 2.0 I & O 01/26/21 01/26/21 01/27/21 14:59 22:59 06:59 Intake Total 720 ml 480 ml Balance 720 ml 480 ml Current Medications: Meds: Current Medications Medications (Trade) Dose Ordered Sig/Stuart Route PRN Reason Start Time Stop Time Status Last Admin Dose Admin Divalproex Sodium (Depakote Sprinkles) 375 mg BID PO 01/26/21 20:00 01/26/21 20:50 I have reviewed the current psychotropics carefully including drug interactions. Risk benefit ratio favors no change other than as noted in my dictated progress note. Diagnosis: Problems: (1) Schizoaffective disorder, bipolar type (2) Anxiety disorder, unspecified (3) Bipolar disorder, current episode depressed, severe, with psychotic features (4) Major depressive disorder with psychotic features (5) Impulse control disorder, unspecified (6) Personality disorder, unspecified AURA HOLDER MD Jan 27, 2021 07:27
--- NOTE | 2021-01-27 07:41 | PDOC ---
Exam Note: Elier Note: This note is a late entry for 01/26/2021 covers elements not covered in my initial note. Subjective: The patient was seen individually in the evening of 01/26/2021 with Lissette GAVIRIA, discussed and reviewed the chart. The patient slept 4 previous night. I met with the patient in his room at some length. As before the patient remains somewhat helpless, stating he cannot walk. Valproic acid level is 30 on Depakote 250 mg b.i.d. Review of Systems: Gait unsteady in wheelchair thought he states he ambulated with a walker earlier today. No CV, , pulmonary, eye, ENT system symptoms on review. Mental Status Exam: The patient is reasonably oriented. Speech is coherent, rapid at times. Abstraction fair. Computation impaired. Language function intact. Mood and affect somewhat labile. Laboratory Data: Reviewed. Impression: Schizoaffective disorder bipolar type mixed with psychotic features. Anxiety disorder unspecified. Plan: Increase Depakote from 250 mg b.i.d. to 375 mg b.i.d. Check CBC, CMP, valproic acid level in 3 days. Increase Zoloft from 25 mg a day to 50 mg a day. Rest unchanged for now. Assessment: Vital Signs/I&O: Vital Signs Date Time Temp Pulse Resp B/P (MAP) Pulse Ox O2 Delivery O2 Flow Rate FiO2 01/27/21 06:10 97.0 63 20 115/73 (87) 95 Nasal Cannula 2.0 I & O 01/26/21 01/26/21 01/27/21 14:59 22:59 06:59 Intake Total 720 ml 480 ml Balance 720 ml 480 ml Current Medications: Meds: Current Medications Medications (Trade) Dose Ordered Sig/Stuart Route PRN Reason Start Time Stop Time Status Last Admin Dose Admin Acetaminophen (Tylenol) 650 mg PRN Q6HRS PRN PO MILD PAIN / TEMP > 100.3'F 01/23/21 21:45 01/26/21 23:52 Multi-Ingredient Ointment (Analgesic [place]) 1 lalo PRN QID PRN TP MUSCLE PAIN 01/23/21 21:45 Al Hydroxide/Mg Hydroxide (Mylanta Plus Xs) 15 ml PRN AFTMEALHC PRN PO DYSPEPSIA 01/23/21 21:45 Magnesium Hydroxide (Milk Of Magnesia) 2,400 mg PRN QHS PRN PO CONSTIPATION 01/23/21 21:45 Divalproex Sodium (Depakote) 250 mg BID PO 01/24/21 09:00 01/26/21 19:53 DC 01/26/21 09:09 Haloperidol (Haldol) 1 mg BID PO 01/24/21 09:00 01/24/21 19:37 DC 01/24/21 09:08 Trazodone HCl (Desyrel) 100 mg QHS PO 01/24/21 21:00 01/26/21 20:48 Apixaban (Eliquis) 5 mg BID PO 01/24/21 09:00 01/26/21 20:49 Clotrimazole (Lotrimin) 1 lalo PRN Q12HR PRN TP REDNESS 01/23/21 23:00 Docusate Sodium (Colace) 100 mg DAILY PO 01/24/21 09:00 01/26/21 09:08 Famotidine (Pepcid) 20 mg DAILY PO 01/24/21 09:00 01/26/21 09:09 Finasteride (Proscar) 5 mg DAILY PO 01/24/21 09:00 01/26/21 09:06 Furosemide (Lasix) 40 mg DAILY PO 01/24/21 09:00 01/26/21 09:07 Metoprolol Tartrate (Lopressor) 25 mg BID PO 01/24/21 09:00 01/26/21 20:48 Potassium Chloride (Klor-Con) 20 meq DAILY PO 01/24/21 09:00 01/26/21 09:07 Tamsulosin HCl (Flomax) 0.4 mg DAILY PO 01/24/21 09:00 01/26/21 09:08 Artificial Tears (Artificial Tears) 1 drop PRN Q8HRS PRN OU DRY EYE 01/23/21 23:15 Non-Formulary Medication (Cimetidine ) 200 mg BID PO 01/24/21 09:00 UNV Diltiazem HCl (Cardizem 24hr Cd) 120 mg DAILY PO 01/24/21 09:00 01/26/21 09:08 Throat Lozenges (Cepacol Sore Throat Lozenge) 1 brayan PRN Q3HRS PRN PO SORE THROAT 01/23/21 23:15 Polyethylene Glycol (miraLAX) 17 gm QMWF PO 01/24/21 16:00 01/24/21 16:55 Info (Anti-Coagulation Monitoring By Pharmacy) 1 each PRN DAILY PRN MC PER PROTOCOL 01/23/21 23:15 Nystatin (Nystop) 1 lalo BID TP 01/24/21 09:00 01/26/21 20:49 Haloperidol (Haldol) 1 mg QHS PO 01/24/21 21:00 01/26/21 20:48 Sertraline HCl (Zoloft) 25 mg DAILY PO 01/25/21 09:00 01/27/21 12:00 01/26/21 09:08 Sertraline HCl (Zoloft) 50 mg DAILY PO 01/28/21 09:00 Ropinirole HCl (Requip) 0.5 mg TID PO 01/25/21 21:00 01/26/21 20:48 Divalproex Sodium (Depakote Sprinkles) 375 mg BID PO 01/26/21 20:00 01/26/21 20:50 Current Medications Medications (Trade) Dose Ordered Sig/Stuart Route PRN Reason Start Time Stop Time Status Last Admin Dose Admin Divalproex Sodium (Depakote Sprinkles) 375 mg BID PO 01/26/21 20:00 01/26/21 20:50 I have reviewed the current psychotropics carefully including drug interactions. Risk benefit ratio favors no change other than as noted in my dictated progress note. Diagnosis: Problems: (1) Schizoaffective disorder, bipolar type (2) Anxiety disorder, unspecified (3) Bipolar disorder, current episode depressed, severe, with psychotic features (4) Major depressive disorder with psychotic features (5) Impulse control disorder, unspecified (6) Personality disorder, unspecified AURA HOLDER MD Jan 27, 2021 07:41
[2021-01-27] MEDS: POTASSIUM CHLORIDE 20 MEQ TABLET.ER. PO SCH (08:56)
[2021-01-27] MEDS: DIVALPROEX 125 MG CAP.SPRINK PO SCH ×2 (08:57→20:45)
[2021-01-27] MEDS: SERTRALINE 25 MG TABLET. PO SCH (08:57)
[2021-01-27] MEDS: APIXABAN 5 MG TABLET. PO SCH ×2 (08:58→20:44)
[2021-01-27] MEDS: FINASTERIDE 5 MG TABLET. PO SCH (08:58)
[2021-01-27] MEDS: FAMOTIDINE 20 MG TABLET PO SCH (08:58)
[2021-01-27] MEDS: DOCUSATE SODIUM 100 MG CAPSULE PO SCH (08:58)
[2021-01-27] MEDS: rOPINIRole 0.5 MG TABLET. PO SCH ×3 (08:58→20:44)
[2021-01-27] MEDS: TAMSULOSIN 0.4 MG CAP.ER.24H. PO SCH (08:59)
[2021-01-27] MEDS: METOPROLOL TART IMMED RELEASE 25 MG TABLET. PO SCH ×2 (08:59→20:47)
[2021-01-27] MEDS: FUROSEMIDE 40 MG TABLET PO SCH (08:59)
[2021-01-27] MEDS: NYSTATIN TOPICAL POWDER 15GM BOTTLE. TP SCH ×2 (09:00→20:46)
--- NOTE | 2021-01-27 09:36 | PN ---
DATE: 01/26/2021 SUBJECTIVE: The patient denies any new medical or neurological complaints; however, he stated he is still complaining of a tremor of the lower extremities, more distal than proximal, aggravated by anxiety and being upset. OBJECTIVE: GENERAL: Obese male in no acute distress. VITAL SIGNS: Blood pressure 103/71; respiratory rate 18; pulse is 75, irregular. CARDIOVASCULAR: Irregular irregular rhythm. Normal S1, S2. There is no S3, S4 or murmur. ABDOMEN: Soft. Bowel sounds positive. EXTREMITIES: Negative for cyanosis, clubbing or pedal edema. NEUROLOGIC: Mental status: The patient is alert and oriented x 2. The speech is fluent. There is no language dysfunction. Cranial nerves are grossly intact. The patient denies hallucination or delusion or suicidal ideation. Cranial nerves are intact. No focal motor or sensory deficit. Deep tendon reflexes were symmetric and hypoactive with absent Achilles responses. The patient was found to have intermittent tremor of the distal lower extremities, improved by lifting of the lower extremities. IMPRESSION: 1. 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 2. Multiple medical problems include hypertension, hyperlipidemia, atrial fibrillation. 3. Multiple psychiatric problems include depression, suicidal ideations, anxiety disorder and possible schizoaffective disorders. RECOMMENDATIONS: We will continue with current home medications and ropinirole as 0.5 mg t.i.d. and treat the underlying anxiety disorder. HARVEY/MICHAELLE/TAMI DR: Kiet TID: [id number]
--- NOTE | 2021-01-27 09:43 | CONS ---
DATE OF CONSULTATION: 01/25/2021 NEUROLOGY CONSULTATION REFERRING PHYSICIAN: Dr. Mathias/Dr. Padron. REASON FOR CONSULTATION: Tremor of the lower extremities, rule out Parkinson's disease. HISTORY OF PRESENT ILLNESS: This is a 75-year-old right-handed male who was admitted on 01/23/2021 from [facility] on account of suicidal ideation and possible plan to jump from the van. The patient has been depressed according to nursing staff. A neuro consult was requested because the patient has had intermittent tremor of the lower extremities and to rule out central nervous system pathology as Parkinson disease. Currently, the patient stated that the tremor has been ongoing for a while and probably several years. He denies any recent head injuries; however, he did admit to multiple falls in the past. The patient stated his tremor of the lower extremities, usually aggravated by anxiety and being upset. PAST MEDICAL HISTORY: Significant for hypertension, diabetes mellitus type 2, hyperlipidemia, atrial fibrillation and obesity. PAST PSYCHIATRIC HISTORY: Consistent with mood disorders, schizoid personality disorder and possible schizoaffective disorders. FAMILY HISTORY: Noncontributory. SOCIAL HISTORY: The patient is single. He reports that [place] He denies smoking, alcohol drinking or illicit drug use. CURRENT HOME MEDICATIONS: Include Tylenol, apixaban like Eliquis, artificial tears, ____ cream, diltiazem, Depakote Sprinkles, famotidine, Proscar for prostate enlargement, furosemide, haloperidol, metoprolol, multivitamins, potassium, sertraline, Flomax and trazodone at night. ALLERGIES: ARIPIPRAZOLE, GENETIC OF ABILIFY; LURASIDONE, MIRTAZAPINE, OLANZAPINE, RISPERIDONE, AND VENLAFAXINE. REVIEW OF SYSTEMS: A 10-point review of system was performed as mentioned above in history of present illness. PHYSICAL EXAMINATION: GENERAL: Obese male in no acute distress. He weighs 122.7 kilos. VITAL SIGNS: Blood pressure 106/65, respiratory rate 18, pulse is 78, temperature 98.1, oxygen saturation 92% on room air. HEENT: Normocephalic, atraumatic. otherwise unremarkable. NECK: Supple. Negative for carotid bruit, lymphadenopathy or thyromegaly. LUNGS: Clear to A and P. CARDIOVASCULAR: Irregular rate and rhythm. Normal S1, S2. There is no S3, S4 or murmur. ABDOMEN: Soft. Bowel sounds positive. EXTREMITIES: Negative for cyanosis, clubbing or pedal edema. NEUROLOGIC: Mental status: The patient is alert and oriented x2. The speech is fluent. There is no language dysfunction. Memory, judgment and abstracting thinking are fair. The patient denies hallucination or delusion. Cranial nerves: Pupils are equal and reactive to light and accommodation. The extraocular movements are intact. There is no nystagmus. There is no facial, motor or sensory deficits. Hearing appeared to be intact. The palate is elevated symmetrically. Sternocleidomastoid muscles are powerful bilaterally. The patient shrugs his shoulders symmetrically and protrudes his tongue in the midline without fasciculation or atrophy. Motor exam: No focal muscle bulk wasting. The tone is normal. The strength is 5/5 throughout. The patient has resting tremor of both lower extremities with normal tone. Sensory examination revealed normal pinprick and light touch senses throughout. Deep tendon reflexes were symmetric and hypoactive with absent Achilles responses. Gait: The patient uses a chair for ambulation and sometimes uses a walker. LABORATORY DATA: Today revealed white blood cells of 5.4, hemoglobin 14.9, hematocrit 45.4, platelet count 204,000. Chemistry revealed a sodium of 141, potassium 4.4, chloride 104, CO2 of 31, BUN 11, creatinine 0.7, glucose 126, calcium 10.1. Liver enzymes are normal. Vitamin B12 is normal and vitamin D is low at 23.5 with normal thyroid profile. D-dimer is 0.38. Urinalysis is negative for urinary tract infection. Depakote level reveal low level at 30. RPR is nonreactive. IMPRESSION: 1. 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 2. Multiple medical problems includes diabetes mellitus, hypertension, hyperlipidemia. 3. Multiple psychiatric problems include schizoid personality and probably schizoaffective disorders, anxiety, depression and suicidal ideations. 4. Cardiovascular atrial fibrilation RECOMMENDATIONS: 1. We will start patient on dopamine agonist as ropinirole at 0.5 mg 3 times daily. 2. Treat the underlying multiple psychiatric disorders including anxiety. 3. Continue with current medical and psychiatric care. [facility]/MICHAELLE/ROMERO DR: Kiet TID: [id number]
[2021-01-27] MEDS: ACETAMINOPHEN 325 MG TABLET PO PRN ×2 (10:47→22:39)
[2021-01-27 15:20] VITALS: BP 114/65
[2021-01-27] MEDS: POLYETHYLENE GLYCOL 3350 17 GM PACKET. PO SCH (16:24)
[2021-01-27] MEDS ORDERED: traZODone 100 MG TABLET. PO PRN (19:45)
--- NOTE | 2021-01-27 20:33 | PDOC ---
Exam Note: Elier Note: Please also refer to the separate dictated note~for this date of service dictated separately.~Patient seen individually. Discussed the patient with Nursing staff reviewed the chart.~Reviewed interim history and current functioning. Reviewed vital signs,~Labs/ Radiology~and current medications noted below. Continue current treatment with the changes noted in the dictated addendum note Assessment: Vital Signs/I&O: Vital Signs Date Time Temp Pulse Resp B/P (MAP) Pulse Ox O2 Delivery O2 Flow Rate FiO2 01/27/21 15:20 97.2 63 20 114/65 (81) 95 01/27/21 06:10 Nasal Cannula 2.0 I & O 01/26/21 01/26/21 01/27/21 15:00 23:00 07:00 Intake Total 720 ml 480 ml Balance 720 ml 480 ml Current Medications: Meds: Current Medications Medications (Trade) Dose Ordered Sig/Stuart Route PRN Reason Start Time Stop Time Status Last Admin Dose Admin Acetaminophen (Tylenol) 650 mg PRN Q6HRS PRN PO MILD PAIN / TEMP > 100.3'F 01/23/21 21:45 01/27/21 10:47 Multi-Ingredient Ointment (Analgesic [place]) 1 lalo PRN QID PRN TP MUSCLE PAIN 01/23/21 21:45 Al Hydroxide/Mg Hydroxide (Mylanta Plus Xs) 15 ml PRN AFTMEALHC PRN PO DYSPEPSIA 01/23/21 21:45 Magnesium Hydroxide (Milk Of Magnesia) 2,400 mg PRN QHS PRN PO CONSTIPATION 01/23/21 21:45 Divalproex Sodium (Depakote) 250 mg BID PO 01/24/21 09:00 01/26/21 19:53 DC 01/26/21 09:09 Haloperidol (Haldol) 1 mg BID PO 01/24/21 09:00 01/24/21 19:37 DC 01/24/21 09:08 Trazodone HCl (Desyrel) 100 mg QHS PO 01/24/21 21:00 01/26/21 20:48 Apixaban (Eliquis) 5 mg BID PO 01/24/21 09:00 01/27/21 08:58 Clotrimazole (Lotrimin) 1 lalo PRN Q12HR PRN TP REDNESS 01/23/21 23:00 Docusate Sodium (Colace) 100 mg DAILY PO 01/24/21 09:00 01/27/21 08:58 Famotidine (Pepcid) 20 mg DAILY PO 01/24/21 09:00 01/27/21 08:58 Finasteride (Proscar) 5 mg DAILY PO 01/24/21 09:00 01/27/21 08:58 Furosemide (Lasix) 40 mg DAILY PO 01/24/21 09:00 01/27/21 08:59 Metoprolol Tartrate (Lopressor) 25 mg BID PO 01/24/21 09:00 01/27/21 08:59 Potassium Chloride (Klor-Con) 20 meq DAILY PO 01/24/21 09:00 01/27/21 08:56 Tamsulosin HCl (Flomax) 0.4 mg DAILY PO 01/24/21 09:00 01/27/21 08:59 Artificial Tears (Artificial Tears) 1 drop PRN Q8HRS PRN OU DRY EYE 01/23/21 23:15 Non-Formulary Medication (Cimetidine ) 200 mg BID PO 01/24/21 09:00 UNV Diltiazem HCl (Cardizem 24hr Cd) 120 mg DAILY PO 01/24/21 09:00 01/27/21 08:56 Throat Lozenges (Cepacol Sore Throat Lozenge) 1 brayan PRN Q3HRS PRN PO SORE THROAT 01/23/21 23:15 Polyethylene Glycol (miraLAX) 17 gm QMWF PO 01/24/21 16:00 01/27/21 16:24 Info (Anti-Coagulation Monitoring By Pharmacy) 1 each PRN DAILY PRN MC PER PROTOCOL 01/23/21 23:15 Nystatin (Nystop) 1 lalo BID TP 01/24/21 09:00 01/27/21 09:00 Haloperidol (Haldol) 1 mg QHS PO 01/24/21 21:00 01/26/21 20:48 Sertraline HCl (Zoloft) 25 mg DAILY PO 01/25/21 09:00 01/27/21 12:00 DC 01/27/21 08:57 Sertraline HCl (Zoloft) 50 mg DAILY PO 01/28/21 09:00 Ropinirole HCl (Requip) 0.5 mg TID PO 01/25/21 21:00 01/27/21 13:17 Divalproex Sodium (Depakote Sprinkles) 375 mg BID PO 01/26/21 20:00 01/27/21 08:57 Mirtazapine (Remeron) 7.5 mg QHS PO 01/27/21 21:00 01/27/21 21:00 Cancel Trazodone HCl (Desyrel) 100 mg PRN QHS PRN PO insomnia 01/27/21 19:45 I have reviewed the current psychotropics carefully including drug interactions. Risk benefit ratio favors no change other than as noted in my dictated progress note. Diagnosis: Problems: (1) Schizoaffective disorder, bipolar type (2) Anxiety disorder, unspecified (3) Bipolar disorder, current episode depressed, severe, with psychotic features (4) Major depressive disorder with psychotic features (5) Impulse control disorder, unspecified (6) Personality disorder, unspecified AURA HOLDER MD Jan 27, 2021 20:33
[2021-01-27] MEDS: HALOPERIDOL 1 MG TABLET PO SCH (20:44)
[2021-01-27] MEDS: traZODone 100 MG TABLET. PO SCH (20:45)
[2021-01-27] MEDS ORDERED: MIRTAZAPINE 7.5 MG TABLET. PO SCH (21:00)
[2021-01-28 05:53] VITALS: BP 119/82
[2021-01-28] MEDS: DOCUSATE SODIUM 100 MG CAPSULE PO SCH (08:47)
[2021-01-28] MEDS: DIVALPROEX 125 MG CAP.SPRINK PO SCH ×2 (08:47→21:01)
[2021-01-28] MEDS: POTASSIUM CHLORIDE 20 MEQ TABLET.ER. PO SCH (08:47)
[2021-01-28] MEDS: rOPINIRole 0.5 MG TABLET. PO SCH ×3 (08:47→21:00)
[2021-01-28] MEDS: SERTRALINE 50 MG TABLET. PO SCH (08:47)
[2021-01-28] MEDS: APIXABAN 5 MG TABLET. PO SCH ×2 (08:47→21:01)
[2021-01-28] MEDS: METOPROLOL TART IMMED RELEASE 25 MG TABLET. PO SCH ×2 (08:48→21:00)
[2021-01-28] MEDS: TAMSULOSIN 0.4 MG CAP.ER.24H. PO SCH (08:48)
[2021-01-28] MEDS: FUROSEMIDE 40 MG TABLET PO SCH (08:48)
[2021-01-28] MEDS: FINASTERIDE 5 MG TABLET. PO SCH (08:48)
[2021-01-28] MEDS: FAMOTIDINE 20 MG TABLET PO SCH (08:48)
[2021-01-28] MEDS: NYSTATIN TOPICAL POWDER 15GM BOTTLE. TP SCH ×2 (08:49→21:00)
[2021-01-28] MEDS: ACETAMINOPHEN 325 MG TABLET PO PRN (08:56)
[2021-01-28 15:24] VITALS: BP 119/65
--- NOTE | 2021-01-28 20:55 | PDOC ---
Exam Note: Elier Note: Please also refer to the separate dictated note~for this date of service dictated separately.~Patient seen individually. Discussed the patient with Nursing staff reviewed the chart.~Reviewed interim history and current functioning. Reviewed vital signs,~Labs/ Radiology~and current medications noted below. Continue current treatment with the changes noted in the dictated addendum note Assessment: Vital Signs/I&O: Vital Signs Date Time Temp Pulse Resp B/P (MAP) Pulse Ox O2 Delivery O2 Flow Rate FiO2 01/28/21 15:24 97.6 58 16 119/65 (83) 93 01/27/21 06:10 Nasal Cannula 2.0 I & O 01/27/21 01/27/21 01/28/21 15:00 23:00 07:00 Intake Total 1460 ml 600 ml Balance 1460 ml 600 ml Current Medications: Meds: Current Medications Medications (Trade) Dose Ordered Sig/Stuart Route PRN Reason Start Time Stop Time Status Last Admin Dose Admin Acetaminophen (Tylenol) 650 mg PRN Q6HRS PRN PO MILD PAIN / TEMP > 100.3'F 01/23/21 21:45 01/28/21 08:56 Multi-Ingredient Ointment (Analgesic [place]) 1 lalo PRN QID PRN TP MUSCLE PAIN 01/23/21 21:45 Al Hydroxide/Mg Hydroxide (Mylanta Plus Xs) 15 ml PRN AFTMEALHC PRN PO DYSPEPSIA 01/23/21 21:45 Magnesium Hydroxide (Milk Of Magnesia) 2,400 mg PRN QHS PRN PO CONSTIPATION 01/23/21 21:45 Divalproex Sodium (Depakote) 250 mg BID PO 01/24/21 09:00 01/26/21 19:53 DC 01/26/21 09:09 Haloperidol (Haldol) 1 mg BID PO 01/24/21 09:00 01/24/21 19:37 DC 01/24/21 09:08 Trazodone HCl (Desyrel) 100 mg QHS PO 01/24/21 21:00 01/27/21 20:45 Apixaban (Eliquis) 5 mg BID PO 01/24/21 09:00 01/28/21 08:47 Clotrimazole (Lotrimin) 1 lalo PRN Q12HR PRN TP REDNESS 01/23/21 23:00 Docusate Sodium (Colace) 100 mg DAILY PO 01/24/21 09:00 01/28/21 08:47 Famotidine (Pepcid) 20 mg DAILY PO 01/24/21 09:00 01/28/21 08:48 Finasteride (Proscar) 5 mg DAILY PO 01/24/21 09:00 01/28/21 08:48 Furosemide (Lasix) 40 mg DAILY PO 01/24/21 09:00 01/28/21 08:48 Metoprolol Tartrate (Lopressor) 25 mg BID PO 01/24/21 09:00 01/28/21 08:48 Potassium Chloride (Klor-Con) 20 meq DAILY PO 01/24/21 09:00 01/28/21 08:47 Tamsulosin HCl (Flomax) 0.4 mg DAILY PO 01/24/21 09:00 01/28/21 08:48 Artificial Tears (Artificial Tears) 1 drop PRN Q8HRS PRN OU DRY EYE 01/23/21 23:15 Non-Formulary Medication (Cimetidine ) 200 mg BID PO 01/24/21 09:00 UNV Diltiazem HCl (Cardizem 24hr Cd) 120 mg DAILY PO 01/24/21 09:00 01/28/21 08:47 Throat Lozenges (Cepacol Sore Throat Lozenge) 1 brayan PRN Q3HRS PRN PO SORE THROAT 01/23/21 23:15 Polyethylene Glycol (miraLAX) 17 gm QMWF PO 01/24/21 16:00 01/27/21 16:24 Info (Anti-Coagulation Monitoring By Pharmacy) 1 each PRN DAILY PRN MC PER PROTOCOL 01/23/21 23:15 Nystatin (Nystop) 1 lalo BID TP 01/24/21 09:00 01/28/21 08:49 Haloperidol (Haldol) 1 mg QHS PO 01/24/21 21:00 01/27/21 20:44 Sertraline HCl (Zoloft) 25 mg DAILY PO 01/25/21 09:00 01/27/21 12:00 DC 01/27/21 08:57 Sertraline HCl (Zoloft) 50 mg DAILY PO 01/28/21 09:00 01/28/21 08:47 Ropinirole HCl (Requip) 0.5 mg TID PO 01/25/21 21:00 01/28/21 13:14 Divalproex Sodium (Depakote Sprinkles) 375 mg BID PO 01/26/21 20:00 01/28/21 08:47 Mirtazapine (Remeron) 7.5 mg QHS PO 01/27/21 21:00 01/27/21 21:00 Cancel Trazodone HCl (Desyrel) 100 mg PRN QHS PRN PO insomnia 01/27/21 19:45 01/27/21 22:39 Gabapentin (Neurontin) 100 mg BID PO 01/28/21 21:00 Current Medications Medications (Trade) Dose Ordered Sig/Stuart Route PRN Reason Start Time Stop Time Status Last Admin Dose Admin Sertraline HCl (Zoloft) 50 mg DAILY PO 01/28/21 09:00 01/28/21 08:47 I have reviewed the current psychotropics carefully including drug interactions. Risk benefit ratio favors no change other than as noted in my dictated progress note. Diagnosis: Problems: (1) Schizoaffective disorder, bipolar type (2) Anxiety disorder, unspecified (3) Bipolar disorder, current episode depressed, severe, with psychotic features (4) Major depressive disorder with psychotic features (5) Impulse control disorder, unspecified (6) Personality disorder, unspecified AURA HOLDER MD Jan 28, 2021 20:55
[2021-01-28] MEDS: traZODone 100 MG TABLET. PO SCH (21:01)
[2021-01-28] MEDS: HALOPERIDOL 1 MG TABLET PO SCH (21:01)
[2021-01-28] MEDS: GABAPENTIN 100 MG CAPSULE. PO SCH (21:02)
[2021-01-29] MEDS: ACETAMINOPHEN 325 MG TABLET PO PRN (04:47)
[2021-01-29 06:10] VITALS: BP 104/64
[2021-01-29] MEDS: SERTRALINE 50 MG TABLET. PO SCH (08:59)
[2021-01-29] MEDS: APIXABAN 5 MG TABLET. PO SCH ×2 (08:59→20:19)
[2021-01-29] MEDS: POTASSIUM CHLORIDE 20 MEQ TABLET.ER. PO SCH (08:59)
[2021-01-29] MEDS: METOPROLOL TART IMMED RELEASE 25 MG TABLET. PO SCH ×2 (08:59→20:19)
[2021-01-29] MEDS: DIVALPROEX 125 MG CAP.SPRINK PO SCH ×2 (09:00→20:18)
[2021-01-29] MEDS: rOPINIRole 0.5 MG TABLET. PO SCH ×3 (09:00→20:18)
[2021-01-29] MEDS: GABAPENTIN 100 MG CAPSULE. PO SCH ×2 (09:00→20:19)
[2021-01-29] MEDS: FINASTERIDE 5 MG TABLET. PO SCH (09:00)
[2021-01-29] MEDS: FUROSEMIDE 40 MG TABLET PO SCH (09:00)
[2021-01-29] MEDS: TAMSULOSIN 0.4 MG CAP.ER.24H. PO SCH (09:00)
[2021-01-29] MEDS: DOCUSATE SODIUM 100 MG CAPSULE PO SCH (09:00)
[2021-01-29] MEDS: FAMOTIDINE 20 MG TABLET PO SCH (09:00)
[2021-01-29] MEDS: NYSTATIN TOPICAL POWDER 15GM BOTTLE. TP SCH ×2 (09:00→20:19)
--- NOTE | 2021-01-29 09:57 | PDOC ---
Exam Note: Elier Note: This note is a late entry for 01/27/2021 covers elements not covered in my initial note. Subjective: The patient was seen individually in the evening of 01/27/2021 with Lissette GAVIRIA, discussed and reviewed the chart. The patient slept 6-1/4 previous night. Overall the patient acts somewhat helpless per nursing report and constantly pushing the call-light button for nursing staff to assist him to go to the bathroom even though he can do that himself. He used the walker to the bathroom previous night but slept poorly. Review of Systems: Ambulation impaired with walker. No CV, , pulmonary, eye, ENT system symptoms on review. Mental Status Exam: The patient is reasonably oriented. Speech is coherent. Abstraction fair. Computation impaired. Language function intact. Mood and affect labile, anxious. Laboratory Data: Reviewed. Impression: Schizoaffective disorder bipolar type mixed with psychotic features. Anxiety disorder unspecified. Plan: We will add Remeron 7.5 mg h.s. to help with insomnia. Rest unchanged for now. Assessment: Vital Signs/I&O: Vital Signs Date Time Temp Pulse Resp B/P (MAP) Pulse Ox O2 Delivery O2 Flow Rate FiO2 01/29/21 09:00 73 104/64 01/29/21 06:10 97.9 20 90 01/27/21 06:10 Nasal Cannula 2.0 I & O 01/28/21 01/28/21 01/29/21 15:00 23:00 07:00 Intake Total 1020 ml 480 ml Balance 1020 ml 480 ml Current Medications: Meds: Current Medications Medications (Trade) Dose Ordered Sig/Stuart Route PRN Reason Start Time Stop Time Status Last Admin Dose Admin Acetaminophen (Tylenol) 650 mg PRN Q6HRS PRN PO MILD PAIN / TEMP > 100.3'F 01/23/21 21:45 01/29/21 04:47 Multi-Ingredient Ointment (Analgesic [place]) 1 lalo PRN QID PRN TP MUSCLE PAIN 01/23/21 21:45 Al Hydroxide/Mg Hydroxide (Mylanta Plus Xs) 15 ml PRN AFTMEALHC PRN PO DYSPEPSIA 01/23/21 21:45 Magnesium Hydroxide (Milk Of Magnesia) 2,400 mg PRN QHS PRN PO CONSTIPATION 01/23/21 21:45 Divalproex Sodium (Depakote) 250 mg BID PO 01/24/21 09:00 01/26/21 19:53 DC 01/26/21 09:09 Haloperidol (Haldol) 1 mg BID PO 01/24/21 09:00 01/24/21 19:37 DC 01/24/21 09:08 Trazodone HCl (Desyrel) 100 mg QHS PO 01/24/21 21:00 01/28/21 21:01 Apixaban (Eliquis) 5 mg BID PO 01/24/21 09:00 01/29/21 08:59 Clotrimazole (Lotrimin) 1 lalo PRN Q12HR PRN TP REDNESS 01/23/21 23:00 Docusate Sodium (Colace) 100 mg DAILY PO 01/24/21 09:00 01/29/21 09:00 Famotidine (Pepcid) 20 mg DAILY PO 01/24/21 09:00 01/29/21 09:00 Finasteride (Proscar) 5 mg DAILY PO 01/24/21 09:00 01/29/21 09:00 Furosemide (Lasix) 40 mg DAILY PO 01/24/21 09:00 01/29/21 09:00 Metoprolol Tartrate (Lopressor) 25 mg BID PO 01/24/21 09:00 01/29/21 08:59 Potassium Chloride (Klor-Con) 20 meq DAILY PO 01/24/21 09:00 01/29/21 08:59 Tamsulosin HCl (Flomax) 0.4 mg DAILY PO 01/24/21 09:00 01/29/21 09:00 Artificial Tears (Artificial Tears) 1 drop PRN Q8HRS PRN OU DRY EYE 01/23/21 23:15 Non-Formulary Medication (Cimetidine ) 200 mg BID PO 01/24/21 09:00 UNV Diltiazem HCl (Cardizem 24hr Cd) 120 mg DAILY PO 01/24/21 09:00 01/29/21 09:00 Throat Lozenges (Cepacol Sore Throat Lozenge) 1 brayan PRN Q3HRS PRN PO SORE THROAT 01/23/21 23:15 Polyethylene Glycol (miraLAX) 17 gm QMWF PO 01/24/21 16:00 01/27/21 16:24 Info (Anti-Coagulation Monitoring By Pharmacy) 1 each PRN DAILY PRN MC PER PROTOCOL 01/23/21 23:15 Nystatin (Nystop) 1 lalo BID TP 01/24/21 09:00 01/29/21 09:00 Haloperidol (Haldol) 1 mg QHS PO 01/24/21 21:00 01/28/21 21:01 Sertraline HCl (Zoloft) 25 mg DAILY PO 01/25/21 09:00 01/27/21 12:00 DC 01/27/21 08:57 Sertraline HCl (Zoloft) 50 mg DAILY PO 01/28/21 09:00 01/29/21 08:59 Ropinirole HCl (Requip) 0.5 mg TID PO 01/25/21 21:00 01/29/21 09:00 Divalproex Sodium (Depakote Sprinkles) 375 mg BID PO 01/26/21 20:00 01/29/21 09:00 Mirtazapine (Remeron) 7.5 mg QHS PO 01/27/21 21:00 01/27/21 21:00 Cancel Trazodone HCl (Desyrel) 100 mg PRN QHS PRN PO insomnia 01/27/21 19:45 01/27/21 22:39 Gabapentin (Neurontin) 100 mg BID PO 01/28/21 21:00 01/29/21 09:00 Current Medications Medications (Trade) Dose Ordered Sig/Stuart Route PRN Reason Start Time Stop Time Status Last Admin Dose Admin Gabapentin (Neurontin) 100 mg BID PO 01/28/21 21:00 01/29/21 09:00 I have reviewed the current psychotropics carefully including drug interactions. Risk benefit ratio favors no change other than as noted in my dictated progress note. Diagnosis: Problems: (1) Schizoaffective disorder, bipolar type (2) Anxiety disorder, unspecified (3) Bipolar disorder, current episode depressed, severe, with psychotic features (4) Major depressive disorder with psychotic features (5) Impulse control disorder, unspecified AURA HOLDER MD Jan 29, 2021 09:57
--- NOTE | 2021-01-29 10:10 | PDOC ---
Exam Note: Elier Note: This note is a late entry for 01/28/2021 covers elements not covered in my initial note. Subjective: The patient was seen individually in the evening of 01/28/2021 with Lissette GAVIRIA, discussed and reviewed the chart. The patient slept 5 previous night. The patient does better with male staff members. He is standby assist, refused to walk with walker by himself, was wanting assistance by staff. He does have some foot pain, possibly related to diabetic neuropathy and we will add gabapentin 100 mg twice a day. Review of Systems: Gait unsteady in wheelchair. No CV, , pulmonary, eye, ENT system symptoms on review. Mental Status Exam: The patient is reasonably oriented. Speech is coherent, rapid at times. Abstraction fair. Computation impaired. Language function intact. Mood and affect somewhat labile. Laboratory Data: Reviewed. Impression: Schizoaffective disorder bipolar type mixed with psychotic features. Anxiety disorder unspecified. Plan: Start Neurontin as above. We may use trazodone x2 p.r.n. for insomnia. He has been having some foot pain and used some Tylenol at times. Assessment: Vital Signs/I&O: Vital Signs Date Time Temp Pulse Resp B/P (MAP) Pulse Ox O2 Delivery O2 Flow Rate FiO2 01/29/21 09:00 73 104/64 01/29/21 06:10 97.9 20 90 01/27/21 06:10 Nasal Cannula 2.0 I & O 01/28/21 01/28/21 01/29/21 14:59 22:59 06:59 Intake Total 1020 ml 480 ml Balance 1020 ml 480 ml Current Medications: Meds: Current Medications Medications (Trade) Dose Ordered Sig/Stuart Route PRN Reason Start Time Stop Time Status Last Admin Dose Admin Acetaminophen (Tylenol) 650 mg PRN Q6HRS PRN PO MILD PAIN / TEMP > 100.3'F 01/23/21 21:45 01/29/21 04:47 Multi-Ingredient Ointment (Analgesic [place]) 1 lalo PRN QID PRN TP MUSCLE PAIN 01/23/21 21:45 Al Hydroxide/Mg Hydroxide (Mylanta Plus Xs) 15 ml PRN AFTMEALHC PRN PO DYSPEPSIA 01/23/21 21:45 Magnesium Hydroxide (Milk Of Magnesia) 2,400 mg PRN QHS PRN PO CONSTIPATION 01/23/21 21:45 Divalproex Sodium (Depakote) 250 mg BID PO 01/24/21 09:00 01/26/21 19:53 DC 01/26/21 09:09 Haloperidol (Haldol) 1 mg BID PO 01/24/21 09:00 01/24/21 19:37 DC 01/24/21 09:08 Trazodone HCl (Desyrel) 100 mg QHS PO 01/24/21 21:00 01/28/21 21:01 Apixaban (Eliquis) 5 mg BID PO 01/24/21 09:00 01/29/21 08:59 Clotrimazole (Lotrimin) 1 lalo PRN Q12HR PRN TP REDNESS 01/23/21 23:00 Docusate Sodium (Colace) 100 mg DAILY PO 01/24/21 09:00 01/29/21 09:00 Famotidine (Pepcid) 20 mg DAILY PO 01/24/21 09:00 01/29/21 09:00 Finasteride (Proscar) 5 mg DAILY PO 01/24/21 09:00 01/29/21 09:00 Furosemide (Lasix) 40 mg DAILY PO 01/24/21 09:00 01/29/21 09:00 Metoprolol Tartrate (Lopressor) 25 mg BID PO 01/24/21 09:00 01/29/21 08:59 Potassium Chloride (Klor-Con) 20 meq DAILY PO 01/24/21 09:00 01/29/21 08:59 Tamsulosin HCl (Flomax) 0.4 mg DAILY PO 01/24/21 09:00 01/29/21 09:00 Artificial Tears (Artificial Tears) 1 drop PRN Q8HRS PRN OU DRY EYE 01/23/21 23:15 Non-Formulary Medication (Cimetidine ) 200 mg BID PO 01/24/21 09:00 UNV Diltiazem HCl (Cardizem 24hr Cd) 120 mg DAILY PO 01/24/21 09:00 01/29/21 09:00 Throat Lozenges (Cepacol Sore Throat Lozenge) 1 brayan PRN Q3HRS PRN PO SORE THROAT 01/23/21 23:15 Polyethylene Glycol (miraLAX) 17 gm QMWF PO 01/24/21 16:00 01/27/21 16:24 Info (Anti-Coagulation Monitoring By Pharmacy) 1 each PRN DAILY PRN MC PER PROTOCOL 01/23/21 23:15 Nystatin (Nystop) 1 lalo BID TP 01/24/21 09:00 01/29/21 09:00 Haloperidol (Haldol) 1 mg QHS PO 01/24/21 21:00 01/28/21 21:01 Sertraline HCl (Zoloft) 25 mg DAILY PO 01/25/21 09:00 01/27/21 12:00 DC 01/27/21 08:57 Sertraline HCl (Zoloft) 50 mg DAILY PO 01/28/21 09:00 01/29/21 08:59 Ropinirole HCl (Requip) 0.5 mg TID PO 01/25/21 21:00 01/29/21 09:00 Divalproex Sodium (Depakote Sprinkles) 375 mg BID PO 01/26/21 20:00 01/29/21 09:00 Mirtazapine (Remeron) 7.5 mg QHS PO 01/27/21 21:00 01/27/21 21:00 Cancel Trazodone HCl (Desyrel) 100 mg PRN QHS PRN PO insomnia 01/27/21 19:45 01/27/21 22:39 Gabapentin (Neurontin) 100 mg BID PO 01/28/21 21:00 01/29/21 09:00 Current Medications Medications (Trade) Dose Ordered Sig/Stuart Route PRN Reason Start Time Stop Time Status Last Admin Dose Admin Gabapentin (Neurontin) 100 mg BID PO 01/28/21 21:00 01/29/21 09:00 I have reviewed the current psychotropics carefully including drug interactions. Risk benefit ratio favors no change other than as noted in my dictated progress note. Diagnosis: Problems: (1) Schizoaffective disorder, bipolar type (2) Anxiety disorder, unspecified (3) Bipolar disorder, current episode depressed, severe, with psychotic features (4) Major depressive disorder with psychotic features (5) Impulse control disorder, unspecified (6) Personality disorder, unspecified AURA HOLDER MD Jan 29, 2021 10:10
[2021-01-29] MEDS: POLYETHYLENE GLYCOL 3350 17 GM PACKET. PO SCH (14:16)
[2021-01-29 15:14] VITALS: BP 113/74
[2021-01-29] MEDS: traZODone 100 MG TABLET. PO SCH (20:18)
[2021-01-29] MEDS: HALOPERIDOL 1 MG TABLET PO SCH (20:18)
--- NOTE | 2021-01-29 20:23 | PDOC ---
Exam Note: Elier Note: Please also refer to the separate dictated note~for this date of service dictated separately.~Patient seen individually. Discussed the patient with Nursing staff reviewed the chart.~Reviewed interim history and current functioning. Reviewed vital signs,~Labs/ Radiology~and current medications noted below. Continue current treatment with the changes noted in the dictated addendum note Assessment: Vital Signs/I&O: Vital Signs Date Time Temp Pulse Resp B/P (MAP) Pulse Ox O2 Delivery O2 Flow Rate FiO2 01/29/21 20:19 50 113/74 01/29/21 15:14 97.6 20 97 01/27/21 06:10 Nasal Cannula 2.0 I & O 0 01/28/21 01/28/21 01/29/21 15:00 23:00 07:00 Intake Total 1020 ml 480 ml Balance 1020 ml 480 ml Current Medications: Meds: Current Medications Medications (Trade) Dose Ordered Sig/Stuart Route PRN Reason Start Time Stop Time Status Last Admin Dose Admin Acetaminophen (Tylenol) 650 mg PRN Q6HRS PRN PO MILD PAIN / TEMP > 100.3'F 01/23/21 21:45 01/29/21 04:47 Multi-Ingredient Ointment (Analgesic [place]) 1 lalo PRN QID PRN TP MUSCLE PAIN 01/23/21 21:45 Al Hydroxide/Mg Hydroxide (Mylanta Plus Xs) 15 ml PRN AFTMEALHC PRN PO DYSPEPSIA 01/23/21 21:45 Magnesium Hydroxide (Milk Of Magnesia) 2,400 mg PRN QHS PRN PO CONSTIPATION 01/23/21 21:45 Divalproex Sodium (Depakote) 250 mg BID PO 01/24/21 09:00 01/26/21 19:53 DC 01/26/21 09:09 Haloperidol (Haldol) 1 mg BID PO 01/24/21 09:00 01/24/21 19:37 DC 01/24/21 09:08 Trazodone HCl (Desyrel) 100 mg QHS PO 01/24/21 21:00 01/29/21 20:18 Apixaban (Eliquis) 5 mg BID PO 01/24/21 09:00 01/29/21 20:19 Clotrimazole (Lotrimin) 1 lalo PRN Q12HR PRN TP REDNESS 01/23/21 23:00 Docusate Sodium (Colace) 100 mg DAILY PO 01/24/21 09:00 01/29/21 09:00 Famotidine (Pepcid) 20 mg DAILY PO 01/24/21 09:00 01/29/21 09:00 Finasteride (Proscar) 5 mg DAILY PO 01/24/21 09:00 01/29/21 09:00 Furosemide (Lasix) 40 mg DAILY PO 01/24/21 09:00 01/29/21 09:00 Metoprolol Tartrate (Lopressor) 25 mg BID PO 01/24/21 09:00 01/29/21 08:59 Potassium Chloride (Klor-Con) 20 meq DAILY PO 01/24/21 09:00 01/29/21 08:59 Tamsulosin HCl (Flomax) 0.4 mg DAILY PO 01/24/21 09:00 01/29/21 09:00 Artificial Tears (Artificial Tears) 1 drop PRN Q8HRS PRN OU DRY EYE 01/23/21 23:15 Non-Formulary Medication (Cimetidine ) 200 mg BID PO 01/24/21 09:00 UNV Diltiazem HCl (Cardizem 24hr Cd) 120 mg DAILY PO 01/24/21 09:00 01/29/21 09:00 Throat Lozenges (Cepacol Sore Throat Lozenge) 1 brayan PRN Q3HRS PRN PO SORE THROAT 01/23/21 23:15 Polyethylene Glycol (miraLAX) 17 gm QMWF PO 01/24/21 16:00 01/29/21 14:16 Info (Anti-Coagulation Monitoring By Pharmacy) 1 each PRN DAILY PRN MC PER PROTOCOL 01/23/21 23:15 Nystatin (Nystop) 1 lalo BID TP 01/24/21 09:00 01/29/21 20:19 Haloperidol (Haldol) 1 mg QHS PO 01/24/21 21:00 01/29/21 20:18 Sertraline HCl (Zoloft) 25 mg DAILY PO 01/25/21 09:00 01/27/21 12:00 DC 01/27/21 08:57 Sertraline HCl (Zoloft) 50 mg DAILY PO 01/28/21 09:00 01/29/21 08:59 Ropinirole HCl (Requip) 0.5 mg TID PO 01/25/21 21:00 01/29/21 20:18 Divalproex Sodium (Depakote Sprinkles) 375 mg BID PO 01/26/21 20:00 01/29/21 20:18 Mirtazapine (Remeron) 7.5 mg QHS PO 01/27/21 21:00 01/27/21 21:00 Cancel Trazodone HCl (Desyrel) 100 mg PRN QHS PRN PO insomnia 01/27/21 19:45 01/27/21 22:39 Gabapentin (Neurontin) 100 mg BID PO 01/28/21 21:00 01/29/21 20:19 Current Medications Medications (Trade) Dose Ordered Sig/Stuart Route PRN Reason Start Time Stop Time Status Last Admin Dose Admin Gabapentin (Neurontin) 100 mg BID PO 01/28/21 21:00 01/29/21 20:19 I have reviewed the current psychotropics carefully including drug interactions. Risk benefit ratio favors no change other than as noted in my dictated progress note. Diagnosis: Problems: (1) Schizoaffective disorder, bipolar type (2) Anxiety disorder, unspecified (3) Bipolar disorder, current episode depressed, severe, with psychotic features (4) Major depressive disorder with psychotic features (5) Impulse control disorder, unspecified (6) Personality disorder, unspecified AURA HOLDER MD Jan 29, 2021 20:23
[2021-01-30 06:18] VITALS: BP 117/75
--- NOTE | 2021-01-30 07:15 | PDOC ---
Exam Note: Elier Note: This note is a late entry for 01/29/2021 covers elements not covered in my initial note. Subjective: The patient was seen individually in the evening of 01/29/2021 with Mike GAVIRIA, discussed and reviewed the chart. The patient slept 3-1/2 previous night. Overall the patient has been attention seeking, somewhat needy, quite helpless today, wanting assistance when he can do things himself. He denies any pain, seems to be responding to gabapentin for his possible pain secondary to diabetic neuropathy. Review of Systems: Ambulation impaired with walker. No CV, , pulmonary, eye, ENT system symptoms on review. Mental Status Exam: The patient is oriented reasonably. Speech is coherent has some latency. Abstraction fair. Computation impaired. Language function intact. Mood and affect withdrawn. Laboratory Data: Reviewed. Impression: Schizoaffective disorder bipolar type mixed with psychotic features. Anxiety disorder unspecified. Plan: No change from initial note. Assessment: Vital Signs/I&O: Vital Signs Date Time Temp Pulse Resp B/P (MAP) Pulse Ox O2 Delivery O2 Flow Rate FiO2 01/30/21 06:18 97.6 84 24 117/75 (89) 89 01/27/21 06:10 Nasal Cannula 2.0 I & O 01/29/21 01/29/21 01/30/21 15:00 23:00 07:00 Intake Total 720 ml 480 ml Balance 720 ml 480 ml Current Medications: Meds: Current Medications Medications (Trade) Dose Ordered Sig/Stuart Route PRN Reason Start Time Stop Time Status Last Admin Dose Admin Acetaminophen (Tylenol) 650 mg PRN Q6HRS PRN PO MILD PAIN / TEMP > 100.3'F 01/23/21 21:45 01/29/21 04:47 Multi-Ingredient Ointment (Analgesic [place]) 1 lalo PRN QID PRN TP MUSCLE PAIN 01/23/21 21:45 Al Hydroxide/Mg Hydroxide (Mylanta Plus Xs) 15 ml PRN AFTMEALHC PRN PO DYSPEPSIA 01/23/21 21:45 Magnesium Hydroxide (Milk Of Magnesia) 2,400 mg PRN QHS PRN PO CONSTIPATION 01/23/21 21:45 Divalproex Sodium (Depakote) 250 mg BID PO 01/24/21 09:00 01/26/21 19:53 DC 01/26/21 09:09 Haloperidol (Haldol) 1 mg BID PO 01/24/21 09:00 01/24/21 19:37 DC 01/24/21 09:08 Trazodone HCl (Desyrel) 100 mg QHS PO 01/24/21 21:00 01/29/21 20:18 Apixaban (Eliquis) 5 mg BID PO 01/24/21 09:00 01/29/21 20:19 Clotrimazole (Lotrimin) 1 lalo PRN Q12HR PRN TP REDNESS 01/23/21 23:00 Docusate Sodium (Colace) 100 mg DAILY PO 01/24/21 09:00 01/29/21 09:00 Famotidine (Pepcid) 20 mg DAILY PO 01/24/21 09:00 01/29/21 09:00 Finasteride (Proscar) 5 mg DAILY PO 01/24/21 09:00 01/29/21 09:00 Furosemide (Lasix) 40 mg DAILY PO 01/24/21 09:00 01/29/21 09:00 Metoprolol Tartrate (Lopressor) 25 mg BID PO 01/24/21 09:00 01/29/21 08:59 Potassium Chloride (Klor-Con) 20 meq DAILY PO 01/24/21 09:00 01/29/21 08:59 Tamsulosin HCl (Flomax) 0.4 mg DAILY PO 01/24/21 09:00 01/29/21 09:00 Artificial Tears (Artificial Tears) 1 drop PRN Q8HRS PRN OU DRY EYE 01/23/21 23:15 Non-Formulary Medication (Cimetidine ) 200 mg BID PO 01/24/21 09:00 UNV Diltiazem HCl (Cardizem 24hr Cd) 120 mg DAILY PO 01/24/21 09:00 01/29/21 09:00 Throat Lozenges (Cepacol Sore Throat Lozenge) 1 brayan PRN Q3HRS PRN PO SORE THROAT 01/23/21 23:15 Polyethylene Glycol (miraLAX) 17 gm QMWF PO 01/24/21 16:00 01/29/21 14:16 Info (Anti-Coagulation Monitoring By Pharmacy) 1 each PRN DAILY PRN MC PER PROTOCOL 01/23/21 23:15 Nystatin (Nystop) 1 lalo BID TP 01/24/21 09:00 01/29/21 20:19 Haloperidol (Haldol) 1 mg QHS PO 01/24/21 21:00 01/29/21 20:18 Sertraline HCl (Zoloft) 25 mg DAILY PO 01/25/21 09:00 01/27/21 12:00 DC 01/27/21 08:57 Sertraline HCl (Zoloft) 50 mg DAILY PO 01/28/21 09:00 01/29/21 08:59 Ropinirole HCl (Requip) 0.5 mg TID PO 01/25/21 21:00 01/29/21 20:18 Divalproex Sodium (Depakote Sprinkles) 375 mg BID PO 01/26/21 20:00 01/29/21 20:18 Mirtazapine (Remeron) 7.5 mg QHS PO 01/27/21 21:00 01/27/21 21:00 Cancel Trazodone HCl (Desyrel) 100 mg PRN QHS PRN PO insomnia 01/27/21 19:45 01/27/21 22:39 Gabapentin (Neurontin) 100 mg BID PO 01/28/21 21:00 01/29/21 20:19 I have reviewed the current psychotropics carefully including drug interactions. Risk benefit ratio favors no change other than as noted in my dictated progress note. Diagnosis: Problems: (1) Schizoaffective disorder, bipolar type (2) Anxiety disorder, unspecified (3) Bipolar disorder, current episode depressed, severe, with psychotic features (4) Major depressive disorder with psychotic features (5) Impulse control disorder, unspecified AURA HOLDER MD Jan 30, 2021 07:15
[2021-01-30 07:40] LABS: BASO % 1 % (0-3); EOS # 0.2 x10^3/uL (0.0-0.7); EOS % 4 % (0-3); HEMATOCRIT 44.7 % (39.0-53.0); HEMOGLOBIN 14.6 g/dL (13.0-17.5); LYMPH # 1.8 x10^3/uL (1.0-4.8); LYMPH % 36 % (24-48); MEAN CORPUSCULAR HEMOGLOBIN 31 pg (25-35); MEAN CORPUSCULAR HGB CONC 33 g/dL (31-37); MEAN CORPUSCULAR VOLUME 95 fL (79-100); MONO # 0.7 x10^3/uL (0.0-1.1); MONO % 14 % (0-9); NEUT # 2.2 x10^3uL (1.8-7.7); NEUT % 45 % (31-73); PLATELET COUNT 205 x10^3/uL (140-400); RED BLOOD COUNT 4.69 x10^6/uL (4.30-5.70); WHITE BLOOD COUNT 4.8 x10^3/uL (4.0-11.0)
[2021-01-30 07:51] LABS: ALBUMIN 3.1 g/dL (3.4-5.0); ALBUMIN/GLOBULIN RATIO 0.8 (1.0-1.7); ALK PHOS 83 U/L (46-116); ALT (SGPT) 80 U/L (16-63); ANION GAP 4 (6-14); AST (SGOT) 55 U/L (15-37); BLOOD UREA NITROGEN 11 mg/dL (8-26); BUN/CREATININE RATIO 16 (6-20); CALCIUM 9.7 mg/dL (8.5-10.1); CARBON DIOXIDE 36 mmol/L (21-32); CHLORIDE 103 mmol/L (98-107); CREATININE 0.7 mg/dL (0.7-1.3); GFR 110.2; GLUCOSE 85 mg/dL (70-99); POTASSIUM 4.3 mmol/L (3.5-5.1); SODIUM 143 mmol/L (136-145); TOTAL BILIRUBIN 0.4 mg/dL (0.2-1.0); TOTAL PROTEIN 7.2 g/dL (6.4-8.2)
[2021-01-30 07:53] LABS: VAL ACID 39 mcg/mL (50-100)
[2021-01-30] MEDS: GABAPENTIN 100 MG CAPSULE. PO SCH ×2 (09:18→19:59)
[2021-01-30] MEDS: rOPINIRole 0.5 MG TABLET. PO SCH ×3 (09:18→19:59)
[2021-01-30] MEDS: POTASSIUM CHLORIDE 20 MEQ TABLET.ER. PO SCH (09:19)
[2021-01-30] MEDS: DIVALPROEX 125 MG CAP.SPRINK PO SCH ×2 (09:19→20:00)
[2021-01-30] MEDS: METOPROLOL TART IMMED RELEASE 25 MG TABLET. PO SCH ×2 (09:19→19:59)
[2021-01-30] MEDS: FINASTERIDE 5 MG TABLET. PO SCH (09:19)
[2021-01-30] MEDS: APIXABAN 5 MG TABLET. PO SCH ×2 (09:19→19:59)
[2021-01-30] MEDS: DOCUSATE SODIUM 100 MG CAPSULE PO SCH (09:19)
[2021-01-30] MEDS: FAMOTIDINE 20 MG TABLET PO SCH (09:19)
[2021-01-30] MEDS: SERTRALINE 50 MG TABLET. PO SCH (09:19)
[2021-01-30] MEDS: TAMSULOSIN 0.4 MG CAP.ER.24H. PO SCH (09:20)
[2021-01-30] MEDS: NYSTATIN TOPICAL POWDER 15GM BOTTLE. TP SCH ×2 (09:20→20:01)
[2021-01-30] MEDS: FUROSEMIDE 40 MG TABLET PO SCH (09:20)
[2021-01-30 15:40] VITALS: BP 119/84
[2021-01-30] MEDS: traZODone 100 MG TABLET. PO SCH (19:59)
[2021-01-30] MEDS: HALOPERIDOL 1 MG TABLET PO SCH (19:59)
--- NOTE | 2021-01-30 21:19 | PDOC ---
Exam Note: Elier Note: Please also refer to the separate dictated note~for this date of service dictated separately.~Patient seen individually. Discussed the patient with Nursing staff reviewed the chart.~Reviewed interim history and current functioning. Reviewed vital signs,~Labs/ Radiology~and current medications noted below. Continue current treatment with the changes noted in the dictated addendum note Assessment: Vital Signs/I&O: Vital Signs Date Time Temp Pulse Resp B/P (MAP) Pulse Ox O2 Delivery O2 Flow Rate FiO2 01/30/21 19:59 52 119/84 01/30/21 15:40 97.0 20 95 01/27/21 06:10 Nasal Cannula 2.0 I & O 0 01/29/21 01/29/21 01/30/21 15:00 23:00 07:00 Intake Total 720 ml 480 ml Balance 720 ml 480 ml Labs: Laboratory Tests Test 01/30/21 07:00 01/30/21 07:28 SARS-CoV-2 (PCR) Not detected (NOT DETECTD) White Blood Count 4.8 x10^3/uL (4.0-11.0) Red Blood Count 4.69 x10^6/uL (4.30-5.70) Hemoglobin 14.6 g/dL (13.0-17.5) Hematocrit 44.7 % (39.0-53.0) Mean Corpuscular Volume 95 fL (79-100) Mean Corpuscular Hemoglobin 31 pg (25-35) Mean Corpuscular Hemoglobin Concent 33 g/dL (31-37) Red Cell Distribution Width 14.0 % (11.5-14.5) Platelet Count 205 x10^3/uL (140-400) Neutrophils (%) (Auto) 45 % (31-73) Lymphocytes (%) (Auto) 36 % (24-48) Monocytes (%) (Auto) 14 % (0-9) H Eosinophils (%) (Auto) 4 % (0-3) H Basophils (%) (Auto) 1 % (0-3) Neutrophils # (Auto) 2.2 x10^3uL (1.8-7.7) Lymphocytes # (Auto) 1.8 x10^3/uL (1.0-4.8) Monocytes # (Auto) 0.7 x10^3/uL (0.0-1.1) Eosinophils # (Auto) 0.2 x10^3/uL (0.0-0.7) Basophils # (Auto) 0.0 x10^3/uL (0.0-0.2) Sodium Level 143 mmol/L (136-145) Potassium Level 4.3 mmol/L (3.5-5.1) Chloride Level 103 mmol/L (98-107) Carbon Dioxide Level 36 mmol/L (21-32) H Anion Gap 4 (6-14) L Blood Urea Nitrogen 11 mg/dL (8-26) Creatinine 0.7 mg/dL (0.7-1.3) Estimated GFR (Cockcroft-Gault) 110.2 BUN/Creatinine Ratio 16 (6-20) Glucose Level 85 mg/dL (70-99) Calcium Level 9.7 mg/dL (8.5-10.1) Total Bilirubin 0.4 mg/dL (0.2-1.0) Aspartate Amino Transferase (AST) 55 U/L (15-37) H Alanine Aminotransferase (ALT) 80 U/L (16-63) H Alkaline Phosphatase 83 U/L (46-116) Total Protein 7.2 g/dL (6.4-8.2) Albumin 3.1 g/dL (3.4-5.0) L Albumin/Globulin Ratio 0.8 (1.0-1.7) L Valproic Acid Level 39 mcg/mL (50-100) L Valproic Acid Last Dose Date 01/29/21 Valproic Acid Last Dose Time 2100 Current Medications: Meds: Laboratory Tests Test 01/30/21 07:00 01/30/21 07:28 Coronavirus (COVID-19)(PCR) Not detected White Blood Count 4.8 x10^3/uL Red Blood Count 4.69 x10^6/uL Hemoglobin 14.6 g/dL Hematocrit 44.7 % Mean Corpuscular Volume 95 fL Mean Corpuscular Hemoglobin 31 pg Mean Corpuscular Hemoglobin Concent 33 g/dL Red Cell Distribution Width 14.0 % Platelet Count 205 x10^3/uL Neutrophils (%) (Auto) 45 % Lymphocytes (%) (Auto) 36 % Monocytes (%) (Auto) 14 % Eosinophils (%) (Auto) 4 % Basophils (%) (Auto) 1 % Neutrophils # (Auto) 2.2 x10^3uL Lymphocytes # (Auto) 1.8 x10^3/uL Monocytes # (Auto) 0.7 x10^3/uL Eosinophils # (Auto) 0.2 x10^3/uL Basophils # (Auto) 0.0 x10^3/uL Sodium Level 143 mmol/L Potassium Level 4.3 mmol/L Chloride Level 103 mmol/L Carbon Dioxide Level 36 mmol/L Anion Gap 4 Blood Urea Nitrogen 11 mg/dL Creatinine 0.7 mg/dL Estimated GFR (Cockcroft-Gault) 110.2 BUN/Creatinine Ratio 16 Glucose Level 85 mg/dL Calcium Level 9.7 mg/dL Total Bilirubin 0.4 mg/dL Aspartate Amino Transf (AST/SGOT) 55 U/L Alanine Aminotransferase (ALT/SGPT) 80 U/L Alkaline Phosphatase 83 U/L Total Protein 7.2 g/dL Albumin 3.1 g/dL Albumin/Globulin Ratio 0.8 Valproic Acid (Depakene) Level 39 mcg/mL Valproic Acid Last Dose Date 01/29/21 Valproic Acid Last Dose Time 2100 Current Medications Medications (Trade) Dose Ordered Sig/Stuart Route PRN Reason Start Time Stop Time Status Last Admin Dose Admin Acetaminophen (Tylenol) 650 mg PRN Q6HRS PRN PO MILD PAIN / TEMP > 100.3'F 01/23/21 21:45 01/29/21 04:47 Multi-Ingredient Ointment (Analgesic [place]) 1 lalo PRN QID PRN TP MUSCLE PAIN 01/23/21 21:45 Al Hydroxide/Mg Hydroxide (Mylanta Plus Xs) 15 ml PRN AFTMEALHC PRN PO DYSPEPSIA 01/23/21 21:45 Magnesium Hydroxide (Milk Of Magnesia) 2,400 mg PRN QHS PRN PO CONSTIPATION 01/23/21 21:45 Divalproex Sodium (Depakote) 250 mg BID PO 01/24/21 09:00 01/26/21 19:53 DC 01/26/21 09:09 Haloperidol (Haldol) 1 mg BID PO 01/24/21 09:00 01/24/21 19:37 DC 01/24/21 09:08 Trazodone HCl (Desyrel) 100 mg QHS PO 01/24/21 21:00 01/30/21 19:59 Apixaban (Eliquis) 5 mg BID PO 01/24/21 09:00 01/30/21 19:59 Clotrimazole (Lotrimin) 1 lalo PRN Q12HR PRN TP REDNESS 01/23/21 23:00 Docusate Sodium (Colace) 100 mg DAILY PO 01/24/21 09:00 01/30/21 09:19 Famotidine (Pepcid) 20 mg DAILY PO 01/24/21 09:00 01/30/21 09:19 Finasteride (Proscar) 5 mg DAILY PO 01/24/21 09:00 01/30/21 09:19 Furosemide (Lasix) 40 mg DAILY PO 01/24/21 09:00 01/30/21 09:20 Metoprolol Tartrate (Lopressor) 25 mg BID PO 01/24/21 09:00 01/30/21 09:19 Potassium Chloride (Klor-Con) 20 meq DAILY PO 01/24/21 09:00 01/30/21 09:19 Tamsulosin HCl (Flomax) 0.4 mg DAILY PO 01/24/21 09:00 01/30/21 09:20 Artificial Tears (Artificial Tears) 1 drop PRN Q8HRS PRN OU DRY EYE 01/23/21 23:15 Non-Formulary Medication (Cimetidine ) 200 mg BID PO 01/24/21 09:00 UNV Diltiazem HCl (Cardizem 24hr Cd) 120 mg DAILY PO 01/24/21 09:00 01/30/21 09:20 Throat Lozenges (Cepacol Sore Throat Lozenge) 1 brayan PRN Q3HRS PRN PO SORE THROAT 01/23/21 23:15 Polyethylene Glycol (miraLAX) 17 gm QMWF PO 01/24/21 16:00 01/29/21 14:16 Info (Anti-Coagulation Monitoring By Pharmacy) 1 each PRN DAILY PRN MC PER PROTOCOL 01/23/21 23:15 Nystatin (Nystop) 1 lalo BID TP 01/24/21 09:00 01/30/21 20:01 Haloperidol (Haldol) 1 mg QHS PO 01/24/21 21:00 01/30/21 19:59 Sertraline HCl (Zoloft) 25 mg DAILY PO 01/25/21 09:00 01/27/21 12:00 DC 01/27/21 08:57 Sertraline HCl (Zoloft) 50 mg DAILY PO 01/28/21 09:00 01/30/21 09:19 Ropinirole HCl (Requip) 0.5 mg TID PO 01/25/21 21:00 01/30/21 19:59 Divalproex Sodium (Depakote Sprinkles) 375 mg BID PO 01/26/21 20:00 01/30/21 18:01 DC 01/30/21 09:19 Mirtazapine (Remeron) 7.5 mg QHS PO 01/27/21 21:00 01/27/21 21:00 Cancel Trazodone HCl (Desyrel) 100 mg PRN QHS PRN PO insomnia 01/27/21 19:45 01/27/21 22:39 Gabapentin (Neurontin) 100 mg BID PO 01/28/21 21:00 01/30/21 19:59 Divalproex Sodium (Depakote Sprinkles) 500 mg BID PO 01/30/21 21:00 01/30/21 20:00 Current Medications Medications (Trade) Dose Ordered Sig/Stuart Route PRN Reason Start Time Stop Time Status Last Admin Dose Admin Divalproex Sodium (Depakote Sprinkles) 500 mg BID PO 01/30/21 21:00 01/30/21 20:00 I have reviewed the current psychotropics carefully including drug interactions. Risk benefit ratio favors no change other than as noted in my dictated progress note. Diagnosis: Problems: (1) Schizoaffective disorder, bipolar type (2) Anxiety disorder, unspecified (3) Bipolar disorder, current episode depressed, severe, with psychotic features (4) Major depressive disorder with psychotic features (5) Impulse control disorder, unspecified (6) Personality disorder, unspecified AURA HOLDER MD Jan 30, 2021 21:19
[2021-01-31 06:14] VITALS: BP 117/75
[2021-01-31] MEDS: NYSTATIN TOPICAL POWDER 15GM BOTTLE. TP SCH ×2 (09:00→20:11)
[2021-01-31] MEDS: FAMOTIDINE 20 MG TABLET PO SCH (09:00)
[2021-01-31] MEDS: DIVALPROEX 125 MG CAP.SPRINK PO SCH ×2 (09:00→20:09)
[2021-01-31] MEDS: rOPINIRole 0.5 MG TABLET. PO SCH ×3 (09:00→20:10)
[2021-01-31] MEDS: APIXABAN 5 MG TABLET. PO SCH ×2 (09:00→20:09)
[2021-01-31] MEDS: FINASTERIDE 5 MG TABLET. PO SCH (09:01)
[2021-01-31] MEDS: GABAPENTIN 100 MG CAPSULE. PO SCH ×2 (09:01→20:10)
[2021-01-31] MEDS: FUROSEMIDE 40 MG TABLET PO SCH (09:01)
[2021-01-31] MEDS: METOPROLOL TART IMMED RELEASE 25 MG TABLET. PO SCH ×2 (09:01→20:10)
[2021-01-31] MEDS: DOCUSATE SODIUM 100 MG CAPSULE PO SCH (09:01)
[2021-01-31] MEDS: SERTRALINE 50 MG TABLET. PO SCH (09:01)
[2021-01-31] MEDS: TAMSULOSIN 0.4 MG CAP.ER.24H. PO SCH (09:01)
[2021-01-31] MEDS: POTASSIUM CHLORIDE 20 MEQ TABLET.ER. PO SCH (09:01)
[2021-01-31 15:19] VITALS: BP 104/74
[2021-01-31] MEDS: POLYETHYLENE GLYCOL 3350 17 GM PACKET. PO SCH (16:01)
[2021-01-31] MEDS: traZODone 100 MG TABLET. PO SCH (20:04)
[2021-01-31] MEDS: HALOPERIDOL 1 MG TABLET PO SCH (20:10)
--- NOTE | 2021-01-31 20:25 | PDOC ---
Exam Note: Elier Note: Please also refer to the separate dictated note~for this date of service dictated separately.~Patient seen individually. Discussed the patient with Nursing staff reviewed the chart.~Reviewed interim history and current functioning. Reviewed vital signs,~Labs/ Radiology~and current medications noted below. Continue current treatment with the changes noted in the dictated addendum note Assessment: Vital Signs/I&O: Vital Signs Date Time Temp Pulse Resp B/P (MAP) Pulse Ox O2 Delivery O2 Flow Rate FiO2 01/31/21 20:10 91 104/74 01/31/21 15:19 98.0 16 92 01/31/21 06:14 2.0 01/27/21 06:10 Nasal Cannula I & O 01/30/21 01/30/21 01/31/21 15:00 23:00 07:00 Intake Total 1020 ml 600 ml Balance 1020 ml 600 ml Current Medications: Meds: Current Medications Medications (Trade) Dose Ordered Sig/Stuart Route PRN Reason Start Time Stop Time Status Last Admin Dose Admin Acetaminophen (Tylenol) 650 mg PRN Q6HRS PRN PO MILD PAIN / TEMP > 100.3'F 01/23/21 21:45 01/29/21 04:47 Multi-Ingredient Ointment (Analgesic [place]) 1 lalo PRN QID PRN TP MUSCLE PAIN 01/23/21 21:45 Al Hydroxide/Mg Hydroxide (Mylanta Plus Xs) 15 ml PRN AFTMEALHC PRN PO DYSPEPSIA 01/23/21 21:45 Magnesium Hydroxide (Milk Of Magnesia) 2,400 mg PRN QHS PRN PO CONSTIPATION 01/23/21 21:45 Divalproex Sodium (Depakote) 250 mg BID PO 01/24/21 09:00 01/26/21 19:53 DC 01/26/21 09:09 Haloperidol (Haldol) 1 mg BID PO 01/24/21 09:00 01/24/21 19:37 DC 01/24/21 09:08 Trazodone HCl (Desyrel) 100 mg QHS PO 01/24/21 21:00 01/31/21 20:04 Apixaban (Eliquis) 5 mg BID PO 01/24/21 09:00 01/31/21 20:09 Clotrimazole (Lotrimin) 1 lalo PRN Q12HR PRN TP REDNESS 01/23/21 23:00 Docusate Sodium (Colace) 100 mg DAILY PO 01/24/21 09:00 01/31/21 09:01 Famotidine (Pepcid) 20 mg DAILY PO 01/24/21 09:00 01/31/21 09:00 Finasteride (Proscar) 5 mg DAILY PO 01/24/21 09:00 01/31/21 09:01 Furosemide (Lasix) 40 mg DAILY PO 01/24/21 09:00 01/31/21 09:01 Metoprolol Tartrate (Lopressor) 25 mg BID PO 01/24/21 09:00 01/31/21 09:01 Potassium Chloride (Klor-Con) 20 meq DAILY PO 01/24/21 09:00 01/31/21 09:01 Tamsulosin HCl (Flomax) 0.4 mg DAILY PO 01/24/21 09:00 01/31/21 09:01 Artificial Tears (Artificial Tears) 1 drop PRN Q8HRS PRN OU DRY EYE 01/23/21 23:15 Non-Formulary Medication (Cimetidine ) 200 mg BID PO 01/24/21 09:00 UNV Diltiazem HCl (Cardizem 24hr Cd) 120 mg DAILY PO 01/24/21 09:00 01/31/21 09:01 Throat Lozenges (Cepacol Sore Throat Lozenge) 1 brayan PRN Q3HRS PRN PO SORE THROAT 01/23/21 23:15 Polyethylene Glycol (miraLAX) 17 gm QMWF PO 01/24/21 16:00 01/31/21 16:01 Info (Anti-Coagulation Monitoring By Pharmacy) 1 each PRN DAILY PRN MC PER PROTOCOL 01/23/21 23:15 Nystatin (Nystop) 1 lalo BID TP 01/24/21 09:00 01/31/21 20:11 Haloperidol (Haldol) 1 mg QHS PO 01/24/21 21:00 01/31/21 20:10 Sertraline HCl (Zoloft) 25 mg DAILY PO 01/25/21 09:00 01/27/21 12:00 DC 01/27/21 08:57 Sertraline HCl (Zoloft) 50 mg DAILY PO 01/28/21 09:00 01/31/21 09:01 Ropinirole HCl (Requip) 0.5 mg TID PO 01/25/21 21:00 01/31/21 20:10 Divalproex Sodium (Depakote Sprinkles) 375 mg BID PO 01/26/21 20:00 01/30/21 18:01 DC 01/30/21 09:19 Mirtazapine (Remeron) 7.5 mg QHS PO 01/27/21 21:00 01/27/21 21:00 Cancel Trazodone HCl (Desyrel) 100 mg PRN QHS PRN PO insomnia 01/27/21 19:45 01/27/21 22:39 Gabapentin (Neurontin) 100 mg BID PO 01/28/21 21:00 01/31/21 20:10 Divalproex Sodium (Depakote Sprinkles) 500 mg BID PO 01/30/21 21:00 01/31/21 20:09 Current Medications Medications (Trade) Dose Ordered Sig/Stuart Route PRN Reason Start Time Stop Time Status Last Admin Dose Admin Divalproex Sodium (Depakote Sprinkles) 500 mg BID PO 01/30/21 21:00 01/31/21 20:09 I have reviewed the current psychotropics carefully including drug interactions. Risk benefit ratio favors no change other than as noted in my dictated progress note. Diagnosis: Problems: (1) Schizoaffective disorder, bipolar type (2) Anxiety disorder, unspecified (3) Bipolar disorder, current episode depressed, severe, with psychotic features (4) Major depressive disorder with psychotic features (5) Impulse control disorder, unspecified (6) Personality disorder, unspecified AURA HOLDER MD Jan 31, 2021 20:25
--- NOTE | 2021-02-01 07:10 | PDOC ---
Exam Note: Elier Note: This note is a late entry for 01/30/2021 covers elements not covered in my initial note. Subjective: The patient was reviewed at treatment team meeting individually in the morning on 01/30/2021 with Reyna Stafford, Silvia Clark, and Alee Palencia (social media content manager), Erica, activity therapy, and Mike GAVIRIA, discussed and reviewed the chart. The patient slept 7-3/4 previous night. Sleeping average 6 hours. Appetite 90%. Previous night his oxygen sats were dropping to 89% perhaps because he was not using CPAP. He appears somewhat helpless, alert and oriented x4, attention seeking per nursing report. He needs verbal cueing for showers. 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 Review of Systems: Ambulation impaired, in wheelchair. No CV, , pulmonary, eye, ENT system symptoms on review. Mental Status Exam: The patient is oriented reasonably. Speech moderate latency. Often response is monosyllabic. Abstraction fair. Computation impaired. Language function intact. Mood and affect withdrawn, somewhat depressed and anxious. No suicidal ideation. Laboratory Data: Reviewed. Impression: Schizoaffective disorder bipolar type mixed with psychotic features. Anxiety disorder unspecified. Plan: No change from initial note. Valproic acid level subtherapeutic at 39 on Depakote Sprinkle 375 mg b.i.d. We will increase to 500 mg b.i.d. Check CBC, CMP, valproic acid level, ammonia level in 3 days. Adjust Depakote as noted. Follow labs. Check mini-mental status examination. Adjust further as clinically indicated. Assessment: Vital Signs/I&O: Vital Signs Date Time Temp Pulse Resp B/P (MAP) Pulse Ox O2 Delivery O2 Flow Rate FiO2 01/31/21 20:10 91 104/74 01/31/21 15:19 98.0 16 92 01/31/21 06:14 2.0 01/27/21 06:10 Nasal Cannula I & O 01/31/21 01/31/21 02/01/21 15:00 23:00 07:00 Intake Total 960 ml 600 ml Balance 960 ml 600 ml Current Medications: Meds: Current Medications Medications (Trade) Dose Ordered Sig/Stuart Route PRN Reason Start Time Stop Time Status Last Admin Dose Admin Acetaminophen (Tylenol) 650 mg PRN Q6HRS PRN PO MILD PAIN / TEMP > 100.3'F 01/23/21 21:45 01/29/21 04:47 Multi-Ingredient Ointment (Analgesic [place]) 1 lalo PRN QID PRN TP MUSCLE PAIN 01/23/21 21:45 Al Hydroxide/Mg Hydroxide (Mylanta Plus Xs) 15 ml PRN AFTMEALHC PRN PO DYSPEPSIA 01/23/21 21:45 Magnesium Hydroxide (Milk Of Magnesia) 2,400 mg PRN QHS PRN PO CONSTIPATION 01/23/21 21:45 Divalproex Sodium (Depakote) 250 mg BID PO 01/24/21 09:00 01/26/21 19:53 DC 01/26/21 09:09 Haloperidol (Haldol) 1 mg BID PO 01/24/21 09:00 01/24/21 19:37 DC 01/24/21 09:08 Trazodone HCl (Desyrel) 100 mg QHS PO 01/24/21 21:00 01/31/21 20:04 Apixaban (Eliquis) 5 mg BID PO 01/24/21 09:00 01/31/21 20:09 Clotrimazole (Lotrimin) 1 lalo PRN Q12HR PRN TP REDNESS 01/23/21 23:00 Docusate Sodium (Colace) 100 mg DAILY PO 01/24/21 09:00 01/31/21 09:01 Famotidine (Pepcid) 20 mg DAILY PO 01/24/21 09:00 01/31/21 09:00 Finasteride (Proscar) 5 mg DAILY PO 01/24/21 09:00 01/31/21 09:01 Furosemide (Lasix) 40 mg DAILY PO 01/24/21 09:00 01/31/21 09:01 Metoprolol Tartrate (Lopressor) 25 mg BID PO 01/24/21 09:00 01/31/21 09:01 Potassium Chloride (Klor-Con) 20 meq DAILY PO 01/24/21 09:00 01/31/21 09:01 Tamsulosin HCl (Flomax) 0.4 mg DAILY PO 01/24/21 09:00 01/31/21 09:01 Artificial Tears (Artificial Tears) 1 drop PRN Q8HRS PRN OU DRY EYE 01/23/21 23:15 Non-Formulary Medication (Cimetidine ) 200 mg BID PO 01/24/21 09:00 UNV Diltiazem HCl (Cardizem 24hr Cd) 120 mg DAILY PO 01/24/21 09:00 01/31/21 09:01 Throat Lozenges (Cepacol Sore Throat Lozenge) 1 brayan PRN Q3HRS PRN PO SORE THROAT 01/23/21 23:15 Polyethylene Glycol (miraLAX) 17 gm QMWF PO 01/24/21 16:00 01/31/21 16:01 Info (Anti-Coagulation Monitoring By Pharmacy) 1 each PRN DAILY PRN MC PER PROTOCOL 01/23/21 23:15 Nystatin (Nystop) 1 lalo BID TP 01/24/21 09:00 01/31/21 20:11 Haloperidol (Haldol) 1 mg QHS PO 01/24/21 21:00 01/31/21 20:10 Sertraline HCl (Zoloft) 25 mg DAILY PO 01/25/21 09:00 01/27/21 12:00 DC 01/27/21 08:57 Sertraline HCl (Zoloft) 50 mg DAILY PO 01/28/21 09:00 01/31/21 09:01 Ropinirole HCl (Requip) 0.5 mg TID PO 01/25/21 21:00 01/31/21 20:10 Divalproex Sodium (Depakote Sprinkles) 375 mg BID PO 01/26/21 20:00 01/30/21 18:01 DC 01/30/21 09:19 Mirtazapine (Remeron) 7.5 mg QHS PO 01/27/21 21:00 01/27/21 21:00 Cancel Trazodone HCl (Desyrel) 100 mg PRN QHS PRN PO insomnia 01/27/21 19:45 01/27/21 22:39 Gabapentin (Neurontin) 100 mg BID PO 01/28/21 21:00 01/31/21 20:10 Divalproex Sodium (Depakote Sprinkles) 500 mg BID PO 01/30/21 21:00 01/31/21 20:09 I have reviewed the current psychotropics carefully including drug interactions. Risk benefit ratio favors no change other than as noted in my dictated progress note. Diagnosis: Problems: (1) Schizoaffective disorder, bipolar type (2) Anxiety disorder, unspecified (3) Bipolar disorder, current episode depressed, severe, with psychotic features (4) Major depressive disorder with psychotic features (5) Impulse control disorder, unspecified (6) Personality disorder, unspecified AURA HOLDER MD Feb 01, 2021 07:10
[2021-02-01 07:19] VITALS: BP 117/79
--- NOTE | 2021-02-01 07:19 | PDOC ---
Exam Note: Elier Note: This note is a late entry for 01/31/2021 covers elements not covered in my initial note. Subjective: The patient was seen individually in the evening of 01/31/2021 with Rosana GAVIRIA, discussed and reviewed the chart. The patient slept 7-3/4 previous night. Overall the patient is doing reasonably well though seems to be little anxious with some personality factors. Review of Systems: Ambulation impaired with walker. No CV, , pulmonary, eye, ENT system symptoms on review. Reliability fair. Mental Status Exam: The patient is oriented reasonably. Speech is coherent. Abstraction fair. Computation impaired. Language function intact. Mood and affect withdrawn. Laboratory Data: Reviewed. Impression: Schizoaffective disorder bipolar type mixed with psychotic features. Anxiety disorder unspecified. Plan: No change from initial note. Assessment: Vital Signs/I&O: Vital Signs Date Time Temp Pulse Resp B/P (MAP) Pulse Ox O2 Delivery O2 Flow Rate FiO2 01/31/21 20:10 91 104/74 01/31/21 15:19 98.0 16 92 01/31/21 06:14 2.0 01/27/21 06:10 Nasal Cannula I & O 01/31/21 01/31/21 02/01/21 15:00 23:00 07:00 Intake Total 960 ml 600 ml Balance 960 ml 600 ml Current Medications: Meds: Current Medications Medications (Trade) Dose Ordered Sig/Stuart Route PRN Reason Start Time Stop Time Status Last Admin Dose Admin Acetaminophen (Tylenol) 650 mg PRN Q6HRS PRN PO MILD PAIN / TEMP > 100.3'F 01/23/21 21:45 01/29/21 04:47 Multi-Ingredient Ointment (Analgesic [place]) 1 lalo PRN QID PRN TP MUSCLE PAIN 01/23/21 21:45 Al Hydroxide/Mg Hydroxide (Mylanta Plus Xs) 15 ml PRN AFTMEALHC PRN PO DYSPEPSIA 01/23/21 21:45 Magnesium Hydroxide (Milk Of Magnesia) 2,400 mg PRN QHS PRN PO CONSTIPATION 01/23/21 21:45 Divalproex Sodium (Depakote) 250 mg BID PO 01/24/21 09:00 01/26/21 19:53 DC 01/26/21 09:09 Haloperidol (Haldol) 1 mg BID PO 01/24/21 09:00 01/24/21 19:37 DC 01/24/21 09:08 Trazodone HCl (Desyrel) 100 mg QHS PO 01/24/21 21:00 01/31/21 20:04 Apixaban (Eliquis) 5 mg BID PO 01/24/21 09:00 01/31/21 20:09 Clotrimazole (Lotrimin) 1 lalo PRN Q12HR PRN TP REDNESS 01/23/21 23:00 Docusate Sodium (Colace) 100 mg DAILY PO 01/24/21 09:00 01/31/21 09:01 Famotidine (Pepcid) 20 mg DAILY PO 01/24/21 09:00 01/31/21 09:00 Finasteride (Proscar) 5 mg DAILY PO 01/24/21 09:00 01/31/21 09:01 Furosemide (Lasix) 40 mg DAILY PO 01/24/21 09:00 01/31/21 09:01 Metoprolol Tartrate (Lopressor) 25 mg BID PO 01/24/21 09:00 01/31/21 09:01 Potassium Chloride (Klor-Con) 20 meq DAILY PO 01/24/21 09:00 01/31/21 09:01 Tamsulosin HCl (Flomax) 0.4 mg DAILY PO 01/24/21 09:00 01/31/21 09:01 Artificial Tears (Artificial Tears) 1 drop PRN Q8HRS PRN OU DRY EYE 01/23/21 23:15 Non-Formulary Medication (Cimetidine ) 200 mg BID PO 01/24/21 09:00 UNV Diltiazem HCl (Cardizem 24hr Cd) 120 mg DAILY PO 01/24/21 09:00 01/31/21 09:01 Throat Lozenges (Cepacol Sore Throat Lozenge) 1 brayan PRN Q3HRS PRN PO SORE THROAT 01/23/21 23:15 Polyethylene Glycol (miraLAX) 17 gm QMWF PO 01/24/21 16:00 01/31/21 16:01 Info (Anti-Coagulation Monitoring By Pharmacy) 1 each PRN DAILY PRN MC PER PROTOCOL 01/23/21 23:15 Nystatin (Nystop) 1 lalo BID TP 01/24/21 09:00 01/31/21 20:11 Haloperidol (Haldol) 1 mg QHS PO 01/24/21 21:00 01/31/21 20:10 Sertraline HCl (Zoloft) 25 mg DAILY PO 01/25/21 09:00 01/27/21 12:00 DC 01/27/21 08:57 Sertraline HCl (Zoloft) 50 mg DAILY PO 01/28/21 09:00 01/31/21 09:01 Ropinirole HCl (Requip) 0.5 mg TID PO 01/25/21 21:00 01/31/21 20:10 Divalproex Sodium (Depakote Sprinkles) 375 mg BID PO 01/26/21 20:00 01/30/21 18:01 DC 01/30/21 09:19 Mirtazapine (Remeron) 7.5 mg QHS PO 01/27/21 21:00 01/27/21 21:00 Cancel Trazodone HCl (Desyrel) 100 mg PRN QHS PRN PO insomnia 01/27/21 19:45 01/27/21 22:39 Gabapentin (Neurontin) 100 mg BID PO 01/28/21 21:00 01/31/21 20:10 Divalproex Sodium (Depakote Sprinkles) 500 mg BID PO 01/30/21 21:00 01/31/21 20:09 I have reviewed the current psychotropics carefully including drug interactions. Risk benefit ratio favors no change other than as noted in my dictated progress note. Diagnosis: Problems: (1) Schizoaffective disorder, bipolar type (2) Anxiety disorder, unspecified (3) Bipolar disorder, current episode depressed, severe, with psychotic features (4) Major depressive disorder with psychotic features (5) Impulse control disorder, unspecified (6) Personality disorder, unspecified AURA HOLDER MD Feb 01, 2021 07:19
[2021-02-01] MEDS: FINASTERIDE 5 MG TABLET. PO SCH (08:49)
[2021-02-01] MEDS: DIVALPROEX 125 MG CAP.SPRINK PO SCH ×2 (08:50→20:40)
[2021-02-01] MEDS: TAMSULOSIN 0.4 MG CAP.ER.24H. PO SCH (08:50)
[2021-02-01] MEDS: POTASSIUM CHLORIDE 20 MEQ TABLET.ER. PO SCH (08:51)
[2021-02-01] MEDS: METOPROLOL TART IMMED RELEASE 25 MG TABLET. PO SCH ×2 (08:51→20:41)
[2021-02-01] MEDS: SERTRALINE 50 MG TABLET. PO SCH (08:52)
[2021-02-01] MEDS: DOCUSATE SODIUM 100 MG CAPSULE PO SCH (08:52)
[2021-02-01] MEDS: APIXABAN 5 MG TABLET. PO SCH ×2 (08:52→20:36)
[2021-02-01] MEDS: FAMOTIDINE 20 MG TABLET PO SCH (08:52)
[2021-02-01] MEDS: GABAPENTIN 100 MG CAPSULE. PO SCH ×2 (08:52→20:36)
[2021-02-01] MEDS: rOPINIRole 0.5 MG TABLET. PO SCH ×3 (08:52→20:36)
[2021-02-01] MEDS: NYSTATIN TOPICAL POWDER 15GM BOTTLE. TP SCH ×2 (08:53→20:41)
[2021-02-01] MEDS: FUROSEMIDE 40 MG TABLET PO SCH (08:53)
[2021-02-01 15:02] VITALS: BP 95/60
[2021-02-01] MEDS: traZODone 100 MG TABLET. PO SCH (20:36)
[2021-02-01] MEDS: HALOPERIDOL 1 MG TABLET PO SCH (20:40)
--- NOTE | 2021-02-01 20:52 | PDOC ---
Exam Note: Elier Note: Please also refer to the separate dictated note~for this date of service dictated separately.~Patient seen individually. Discussed the patient with Nursing staff reviewed the chart.~Reviewed interim history and current functioning. Reviewed vital signs,~Labs/ Radiology~and current medications noted below. Continue current treatment with the changes noted in the dictated addendum note Assessment: Vital Signs/I&O: Vital Signs Date Time Temp Pulse Resp B/P (MAP) Pulse Ox O2 Delivery O2 Flow Rate FiO2 02/01/21 20:41 60 95/60 02/01/21 15:02 97.8 20 93 01/31/21 06:14 2.0 01/27/21 06:10 Nasal Cannula l I & O 01/31/21 01/31/21 02/01/21 15:00 23:00 07:00 Intake Total 960 ml 600 ml Balance 960 ml 600 ml Current Medications: Meds: Current Medications Medications (Trade) Dose Ordered Sig/Stuart Route PRN Reason Start Time Stop Time Status Last Admin Dose Admin Acetaminophen (Tylenol) 650 mg PRN Q6HRS PRN PO MILD PAIN / TEMP > 100.3'F 01/23/21 21:45 01/29/21 04:47 Multi-Ingredient Ointment (Analgesic [place]) 1 lalo PRN QID PRN TP MUSCLE PAIN 01/23/21 21:45 Al Hydroxide/Mg Hydroxide (Mylanta Plus Xs) 15 ml PRN AFTMEALHC PRN PO DYSPEPSIA 01/23/21 21:45 Magnesium Hydroxide (Milk Of Magnesia) 2,400 mg PRN QHS PRN PO CONSTIPATION 01/23/21 21:45 Divalproex Sodium (Depakote) 250 mg BID PO 01/24/21 09:00 01/26/21 19:53 DC 01/26/21 09:09 Haloperidol (Haldol) 1 mg BID PO 01/24/21 09:00 01/24/21 19:37 DC 01/24/21 09:08 Trazodone HCl (Desyrel) 100 mg QHS PO 01/24/21 21:00 02/01/21 20:36 Apixaban (Eliquis) 5 mg BID PO 01/24/21 09:00 02/01/21 20:36 Clotrimazole (Lotrimin) 1 lalo PRN Q12HR PRN TP REDNESS 01/23/21 23:00 Docusate Sodium (Colace) 100 mg DAILY PO 01/24/21 09:00 02/01/21 08:52 Famotidine (Pepcid) 20 mg DAILY PO 01/24/21 09:00 02/01/21 08:52 Finasteride (Proscar) 5 mg DAILY PO 01/24/21 09:00 02/01/21 08:49 Furosemide (Lasix) 40 mg DAILY PO 01/24/21 09:00 02/01/21 08:53 Metoprolol Tartrate (Lopressor) 25 mg BID PO 01/24/21 09:00 02/01/21 08:51 Potassium Chloride (Klor-Con) 20 meq DAILY PO 01/24/21 09:00 02/01/21 08:51 Tamsulosin HCl (Flomax) 0.4 mg DAILY PO 01/24/21 09:00 02/01/21 08:50 Artificial Tears (Artificial Tears) 1 drop PRN Q8HRS PRN OU DRY EYE 01/23/21 23:15 Non-Formulary Medication (Cimetidine ) 200 mg BID PO 01/24/21 09:00 UNV Diltiazem HCl (Cardizem 24hr Cd) 120 mg DAILY PO 01/24/21 09:00 02/01/21 08:51 Throat Lozenges (Cepacol Sore Throat Lozenge) 1 brayan PRN Q3HRS PRN PO SORE THROAT 01/23/21 23:15 Polyethylene Glycol (miraLAX) 17 gm QMWF PO 01/24/21 16:00 01/31/21 16:01 Info (Anti-Coagulation Monitoring By Pharmacy) 1 each PRN DAILY PRN MC PER PROTOCOL 01/23/21 23:15 Nystatin (Nystop) 1 lalo BID TP 01/24/21 09:00 02/01/21 20:41 Haloperidol (Haldol) 1 mg QHS PO 01/24/21 21:00 02/01/21 20:40 Sertraline HCl (Zoloft) 25 mg DAILY PO 01/25/21 09:00 01/27/21 12:00 DC 01/27/21 08:57 Sertraline HCl (Zoloft) 50 mg DAILY PO 01/28/21 09:00 02/01/21 08:52 Ropinirole HCl (Requip) 0.5 mg TID PO 01/25/21 21:00 02/01/21 20:36 Divalproex Sodium (Depakote Sprinkles) 375 mg BID PO 01/26/21 20:00 01/30/21 18:01 DC 01/30/21 09:19 Mirtazapine (Remeron) 7.5 mg QHS PO 01/27/21 21:00 01/27/21 21:00 Cancel Trazodone HCl (Desyrel) 100 mg PRN QHS PRN PO insomnia 01/27/21 19:45 01/27/21 22:39 Gabapentin (Neurontin) 100 mg BID PO 01/28/21 21:00 02/01/21 20:36 Divalproex Sodium (Depakote Sprinkles) 500 mg BID PO 01/30/21 21:00 02/01/21 20:40 I have reviewed the current psychotropics carefully including drug interactions. Risk benefit ratio favors no change other than as noted in my dictated progress note. Diagnosis: Problems: (1) Schizoaffective disorder, bipolar type (2) Anxiety disorder, unspecified (3) Bipolar disorder, current episode depressed, severe, with psychotic features (4) Major depressive disorder with psychotic features (5) Impulse control disorder, unspecified (6) Personality disorder, unspecified AURA HOLDER MD Feb 01, 2021 20:52
[2021-02-02 05:42] VITALS: BP 119/75
[2021-02-02] MEDS: DIVALPROEX 125 MG CAP.SPRINK PO SCH ×2 (08:46→19:44)
[2021-02-02] MEDS: SERTRALINE 50 MG TABLET. PO SCH (08:46)
[2021-02-02] MEDS: APIXABAN 5 MG TABLET. PO SCH ×2 (08:46→19:44)
[2021-02-02] MEDS: FUROSEMIDE 40 MG TABLET PO SCH (08:46)
[2021-02-02] MEDS: rOPINIRole 0.5 MG TABLET. PO SCH ×3 (08:46→19:44)
[2021-02-02] MEDS: FAMOTIDINE 20 MG TABLET PO SCH (08:46)
[2021-02-02] MEDS: FINASTERIDE 5 MG TABLET. PO SCH (08:46)
[2021-02-02] MEDS: TAMSULOSIN 0.4 MG CAP.ER.24H. PO SCH (08:47)
[2021-02-02] MEDS: GABAPENTIN 100 MG CAPSULE. PO SCH ×2 (08:47→19:44)
[2021-02-02] MEDS: DOCUSATE SODIUM 100 MG CAPSULE PO SCH (08:47)
[2021-02-02] MEDS: POTASSIUM CHLORIDE 20 MEQ TABLET.ER. PO SCH (08:47)
[2021-02-02] MEDS: METOPROLOL TART IMMED RELEASE 25 MG TABLET. PO SCH ×2 (08:47→19:44)
[2021-02-02] MEDS: NYSTATIN TOPICAL POWDER 15GM BOTTLE. TP SCH ×2 (08:51→19:45)
[2021-02-02 15:42] VITALS: BP 103/60
[2021-02-02] MEDS: HALOPERIDOL 1 MG TABLET PO SCH (19:44)
[2021-02-02] MEDS: traZODone 100 MG TABLET. PO SCH (19:44)
--- NOTE | 2021-02-02 20:39 | PDOC ---
Exam Note: Elier Note: Please also refer to the separate dictated note~for this date of service dictated separately.~Patient seen individually. Discussed the patient with Nursing staff reviewed the chart.~Reviewed interim history and current functioning. Reviewed vital signs,~Labs/ Radiology~and current medications noted below. Continue current treatment with the changes noted in the dictated addendum note Assessment: Vital Signs/I&O: Vital Signs Date Time Temp Pulse Resp B/P (MAP) Pulse Ox O2 Delivery O2 Flow Rate FiO2 02/02/21 19:44 63 103/60 02/02/21 15:42 97.2 20 92 02/02/21 05:42 2.0 I & O 02/01/21 02/01/21 02/02/21 15:00 23:00 07:00 Intake Total 1080 ml 720 ml Balance 1080 ml 720 ml Current Medications: Meds: Current Medications Medications (Trade) Dose Ordered Sig/Stuart Route PRN Reason Start Time Stop Time Status Last Admin Dose Admin Acetaminophen (Tylenol) 650 mg PRN Q6HRS PRN PO MILD PAIN / TEMP > 100.3'F 01/23/21 21:45 01/29/21 04:47 Multi-Ingredient Ointment (Analgesic [place]) 1 lalo PRN QID PRN TP MUSCLE PAIN 01/23/21 21:45 Al Hydroxide/Mg Hydroxide (Mylanta Plus Xs) 15 ml PRN AFTMEALHC PRN PO DYSPEPSIA 01/23/21 21:45 Magnesium Hydroxide (Milk Of Magnesia) 2,400 mg PRN QHS PRN PO CONSTIPATION 01/23/21 21:45 Divalproex Sodium (Depakote) 250 mg BID PO 01/24/21 09:00 01/26/21 19:53 DC 01/26/21 09:09 Haloperidol (Haldol) 1 mg BID PO 01/24/21 09:00 01/24/21 19:37 DC 01/24/21 09:08 Trazodone HCl (Desyrel) 100 mg QHS PO 01/24/21 21:00 02/02/21 19:44 Apixaban (Eliquis) 5 mg BID PO 01/24/21 09:00 02/02/21 19:44 Clotrimazole (Lotrimin) 1 lalo PRN Q12HR PRN TP REDNESS 01/23/21 23:00 Docusate Sodium (Colace) 100 mg DAILY PO 01/24/21 09:00 02/02/21 08:47 Famotidine (Pepcid) 20 mg DAILY PO 01/24/21 09:00 02/02/21 08:46 Finasteride (Proscar) 5 mg DAILY PO 01/24/21 09:00 02/02/21 08:46 Furosemide (Lasix) 40 mg DAILY PO 01/24/21 09:00 02/02/21 08:46 Metoprolol Tartrate (Lopressor) 25 mg BID PO 01/24/21 09:00 02/02/21 08:47 Potassium Chloride (Klor-Con) 20 meq DAILY PO 01/24/21 09:00 02/02/21 08:47 Tamsulosin HCl (Flomax) 0.4 mg DAILY PO 01/24/21 09:00 02/02/21 08:47 Artificial Tears (Artificial Tears) 1 drop PRN Q8HRS PRN OU DRY EYE 01/23/21 23:15 Non-Formulary Medication (Cimetidine ) 200 mg BID PO 01/24/21 09:00 UNV Diltiazem HCl (Cardizem 24hr Cd) 120 mg DAILY PO 01/24/21 09:00 02/02/21 08:47 Throat Lozenges (Cepacol Sore Throat Lozenge) 1 brayan PRN Q3HRS PRN PO SORE THROAT 01/23/21 23:15 Polyethylene Glycol (miraLAX) 17 gm QMWF PO 01/24/21 16:00 01/31/21 16:01 Info (Anti-Coagulation Monitoring By Pharmacy) 1 each PRN DAILY PRN MC PER PROTOCOL 01/23/21 23:15 Nystatin (Nystop) 1 lalo BID TP 01/24/21 09:00 02/02/21 19:45 Haloperidol (Haldol) 1 mg QHS PO 01/24/21 21:00 02/02/21 19:44 Sertraline HCl (Zoloft) 25 mg DAILY PO 01/25/21 09:00 01/27/21 12:00 DC 01/27/21 08:57 Sertraline HCl (Zoloft) 50 mg DAILY PO 01/28/21 09:00 02/02/21 08:46 Ropinirole HCl (Requip) 0.5 mg TID PO 01/25/21 21:00 02/02/21 19:44 Divalproex Sodium (Depakote Sprinkles) 375 mg BID PO 01/26/21 20:00 01/30/21 18:01 DC 01/30/21 09:19 Mirtazapine (Remeron) 7.5 mg QHS PO 01/27/21 21:00 01/27/21 21:00 Cancel Trazodone HCl (Desyrel) 100 mg PRN QHS PRN PO insomnia 01/27/21 19:45 01/27/21 22:39 Gabapentin (Neurontin) 100 mg BID PO 01/28/21 21:00 02/02/21 19:44 Divalproex Sodium (Depakote Sprinkles) 500 mg BID PO 01/30/21 21:00 02/02/21 19:44 I have reviewed the current psychotropics carefully including drug interactions. Risk benefit ratio favors no change other than as noted in my dictated progress note. Diagnosis: Problems: (1) Schizoaffective disorder, bipolar type (2) Anxiety disorder, unspecified (3) Bipolar disorder, current episode depressed, severe, with psychotic features (4) Major depressive disorder with psychotic features (5) Impulse control disorder, unspecified (6) Personality disorder, unspecified AURA HOLDER MD Feb 02, 2021 20:39
[2021-02-03] MEDS: ACETAMINOPHEN 325 MG TABLET PO PRN (05:27)
[2021-02-03 05:58] VITALS: BP 109/77
[2021-02-03 06:13] LABS: BASO % 1 % (0-3); EOS # 0.2 x10^3/uL (0.0-0.7); EOS % 4 % (0-3); HEMATOCRIT 41.7 % (39.0-53.0); HEMOGLOBIN 13.6 g/dL (13.0-17.5); LYMPH # 1.7 x10^3/uL (1.0-4.8); LYMPH % 35 % (24-48); MEAN CORPUSCULAR HEMOGLOBIN 31 pg (25-35); MEAN CORPUSCULAR HGB CONC 33 g/dL (31-37); MEAN CORPUSCULAR VOLUME 96 fL (79-100); MONO # 0.7 x10^3/uL (0.0-1.1); MONO % 14 % (0-9); NEUT # 2.3 x10^3uL (1.8-7.7); NEUT % 46 % (31-73); PLATELET COUNT 174 x10^3/uL (140-400); RED BLOOD COUNT 4.36 x10^6/uL (4.30-5.70); RED CELL DISTRIBUTION WIDTH 14.1 % (11.5-14.5); WHITE BLOOD COUNT 4.9 x10^3/uL (4.0-11.0)
[2021-02-03 06:27] LABS: ALBUMIN 2.8 g/dL (3.4-5.0); ALBUMIN/GLOBULIN RATIO 0.8 (1.0-1.7); ALK PHOS 76 U/L (46-116); ALT (SGPT) 72 U/L (16-63); ANION GAP 4 (6-14); AST (SGOT) 42 U/L (15-37); BLOOD UREA NITROGEN 11 mg/dL (8-26); BUN/CREATININE RATIO 16 (6-20); CALCIUM 9.6 mg/dL (8.5-10.1); CARBON DIOXIDE 34 mmol/L (21-32); CHLORIDE 104 mmol/L (98-107); CREATININE 0.7 mg/dL (0.7-1.3); GFR 110.2; GLUCOSE 84 mg/dL (70-99); POTASSIUM 4.4 mmol/L (3.5-5.1); SODIUM 142 mmol/L (136-145); TOTAL BILIRUBIN 0.4 mg/dL (0.2-1.0); TOTAL PROTEIN 6.5 g/dL (6.4-8.2)
[2021-02-03 07:09] LABS: VAL ACID 48 mcg/mL (50-100)
--- NOTE | 2021-02-03 08:22 | PDOC ---
Exam Note: Elier Note: This note is a late entry for 02/01/2021 covers elements not covered in my initial note. Subjective: The patient was seen individually in the evening of 02/01/2021 with Jocelyn GAVIRIA, discussed and reviewed the chart. The patient slept 5-1/2 previous night. He has been anxious, attention seeking, yelling at times, helpless even though he can do certain things he wants nursing staff to do them for him. Review of Systems: Ambulation impaired with walker. No CV, , pulmonary, eye, ENT system symptoms on review. He was little tired as I met with him in the evening. Mental Status Exam: The patient is oriented himself and situation. Speech is coherent. Abstraction fair. Computation impaired. Language function intact. Attention span short. Mood and affect anxious, somewhat labile. Laboratory Data: Reviewed. Impression: Schizoaffective disorder bipolar type mixed with psychotic features. Anxiety disorder unspecified. Plan: No change from initial note. Check valproic acid level on 02/03. Haldol has been reduced. Maintain Zoloft, ReQuip, gabapentin and trazodone. Assessment: Vital Signs/I&O: Vital Signs Date Time Temp Pulse Resp B/P (MAP) Pulse Ox O2 Delivery O2 Flow Rate FiO2 02/03/21 05:58 97.5 83 18 109/77 (88) 92 02/02/21 05:42 2.0 I & O 02/02/21 02/02/21 02/03/21 15:00 23:00 07:00 Intake Total 960 ml 480 ml Balance 960 ml 480 ml Labs: Laboratory Tests Test 02/03/21 05:51 White Blood Count 4.9 x10^3/uL (4.0-11.0) Red Blood Count 4.36 x10^6/uL (4.30-5.70) Hemoglobin 13.6 g/dL (13.0-17.5) Hematocrit 41.7 % (39.0-53.0) Mean Corpuscular Volume 96 fL (79-100) Mean Corpuscular Hemoglobin 31 pg (25-35) Mean Corpuscular Hemoglobin Concent 33 g/dL (31-37) Red Cell Distribution Width 14.1 % (11.5-14.5) Platelet Count 174 x10^3/uL (140-400) Neutrophils (%) (Auto) 46 % (31-73) Lymphocytes (%) (Auto) 35 % (24-48) Monocytes (%) (Auto) 14 % (0-9) H Eosinophils (%) (Auto) 4 % (0-3) H Basophils (%) (Auto) 1 % (0-3) Neutrophils # (Auto) 2.3 x10^3uL (1.8-7.7) Lymphocytes # (Auto) 1.7 x10^3/uL (1.0-4.8) Monocytes # (Auto) 0.7 x10^3/uL (0.0-1.1) Eosinophils # (Auto) 0.2 x10^3/uL (0.0-0.7) Basophils # (Auto) 0.0 x10^3/uL (0.0-0.2) Sodium Level 142 mmol/L (136-145) Potassium Level 4.4 mmol/L (3.5-5.1) Chloride Level 104 mmol/L (98-107) Carbon Dioxide Level 34 mmol/L (21-32) H Anion Gap 4 (6-14) L Blood Urea Nitrogen 11 mg/dL (8-26) Creatinine 0.7 mg/dL (0.7-1.3) Estimated GFR (Cockcroft-Gault) 110.2 BUN/Creatinine Ratio 16 (6-20) Glucose Level 84 mg/dL (70-99) Calcium Level 9.6 mg/dL (8.5-10.1) Total Bilirubin 0.4 mg/dL (0.2-1.0) Aspartate Amino Transferase (AST) 42 U/L (15-37) H Alanine Aminotransferase (ALT) 72 U/L (16-63) H Alkaline Phosphatase 76 U/L (46-116) Ammonia 53 mcmol/L (11-34) H Total Protein 6.5 g/dL (6.4-8.2) Albumin 2.8 g/dL (3.4-5.0) L Albumin/Globulin Ratio 0.8 (1.0-1.7) L Valproic Acid Level 48 mcg/mL (50-100) L Valproic Acid Last Dose Date 02/02/21 Valproic Acid Last Dose Time 2100 Current Medications: Meds: Laboratory Tests Test 02/03/21 05:51 White Blood Count 4.9 x10^3/uL Red Blood Count 4.36 x10^6/uL Hemoglobin 13.6 g/dL Hematocrit 41.7 % Mean Corpuscular Volume 96 fL Mean Corpuscular Hemoglobin 31 pg Mean Corpuscular Hemoglobin Concent 33 g/dL Red Cell Distribution Width 14.1 % Platelet Count 174 x10^3/uL Neutrophils (%) (Auto) 46 % Lymphocytes (%) (Auto) 35 % Monocytes (%) (Auto) 14 % Eosinophils (%) (Auto) 4 % Basophils (%) (Auto) 1 % Neutrophils # (Auto) 2.3 x10^3uL Lymphocytes # (Auto) 1.7 x10^3/uL Monocytes # (Auto) 0.7 x10^3/uL Eosinophils # (Auto) 0.2 x10^3/uL Basophils # (Auto) 0.0 x10^3/uL Sodium Level 142 mmol/L Potassium Level 4.4 mmol/L Chloride Level 104 mmol/L Carbon Dioxide Level 34 mmol/L Anion Gap 4 Blood Urea Nitrogen 11 mg/dL Creatinine 0.7 mg/dL Estimated GFR (Cockcroft-Gault) 110.2 BUN/Creatinine Ratio 16 Glucose Level 84 mg/dL Calcium Level 9.6 mg/dL Total Bilirubin 0.4 mg/dL Aspartate Amino Transf (AST/SGOT) 42 U/L Alanine Aminotransferase (ALT/SGPT) 72 U/L Alkaline Phosphatase 76 U/L Ammonia 53 mcmol/L Total Protein 6.5 g/dL Albumin 2.8 g/dL Albumin/Globulin Ratio 0.8 Valproic Acid (Depakene) Level 48 mcg/mL Valproic Acid Last Dose Date 02/02/21 Valproic Acid Last Dose Time 2100 Current Medications Medications (Trade) Dose Ordered Sig/Stuart Route PRN Reason Start Time Stop Time Status Last Admin Dose Admin Acetaminophen (Tylenol) 650 mg PRN Q6HRS PRN PO MILD PAIN / TEMP > 100.3'F 01/23/21 21:45 02/03/21 05:27 Multi-Ingredient Ointment (Analgesic [place]) 1 lalo PRN QID PRN TP MUSCLE PAIN 01/23/21 21:45 Al Hydroxide/Mg Hydroxide (Mylanta Plus Xs) 15 ml PRN AFTMEALHC PRN PO DYSPEPSIA 01/23/21 21:45 Magnesium Hydroxide (Milk Of Magnesia) 2,400 mg PRN QHS PRN PO CONSTIPATION 01/23/21 21:45 Divalproex Sodium (Depakote) 250 mg BID PO 01/24/21 09:00 01/26/21 19:53 DC 01/26/21 09:09 Haloperidol (Haldol) 1 mg BID PO 01/24/21 09:00 01/24/21 19:37 DC 01/24/21 09:08 Trazodone HCl (Desyrel) 100 mg QHS PO 01/24/21 21:00 02/02/21 19:44 Apixaban (Eliquis) 5 mg BID PO 01/24/21 09:00 02/02/21 19:44 Clotrimazole (Lotrimin) 1 lalo PRN Q12HR PRN TP REDNESS 01/23/21 23:00 Docusate Sodium (Colace) 100 mg DAILY PO 01/24/21 09:00 02/02/21 08:47 Famotidine (Pepcid) 20 mg DAILY PO 01/24/21 09:00 02/02/21 08:46 Finasteride (Proscar) 5 mg DAILY PO 01/24/21 09:00 02/02/21 08:46 Furosemide (Lasix) 40 mg DAILY PO 01/24/21 09:00 02/02/21 08:46 Metoprolol Tartrate (Lopressor) 25 mg BID PO 01/24/21 09:00 02/02/21 08:47 Potassium Chloride (Klor-Con) 20 meq DAILY PO 01/24/21 09:00 02/02/21 08:47 Tamsulosin HCl (Flomax) 0.4 mg DAILY PO 01/24/21 09:00 02/02/21 08:47 Artificial Tears (Artificial Tears) 1 drop PRN Q8HRS PRN OU DRY EYE 01/23/21 23:15 Non-Formulary Medication (Cimetidine ) 200 mg BID PO 01/24/21 09:00 UNV Diltiazem HCl (Cardizem 24hr Cd) 120 mg DAILY PO 01/24/21 09:00 02/02/21 08:47 Throat Lozenges (Cepacol Sore Throat Lozenge) 1 brayan PRN Q3HRS PRN PO SORE THROAT 01/23/21 23:15 Polyethylene Glycol (miraLAX) 17 gm QMWF PO 01/24/21 16:00 01/31/21 16:01 Info (Anti-Coagulation Monitoring By Pharmacy) 1 each PRN DAILY PRN MC PER PROTOCOL 01/23/21 23:15 Nystatin (Nystop) 1 lalo BID TP 01/24/21 09:00 02/02/21 19:45 Haloperidol (Haldol) 1 mg QHS PO 01/24/21 21:00 02/02/21 19:44 Sertraline HCl (Zoloft) 25 mg DAILY PO 01/25/21 09:00 01/27/21 12:00 DC 01/27/21 08:57 Sertraline HCl (Zoloft) 50 mg DAILY PO 01/28/21 09:00 02/02/21 08:46 Ropinirole HCl (Requip) 0.5 mg TID PO 01/25/21 21:00 02/02/21 19:44 Divalproex Sodium (Depakote Sprinkles) 375 mg BID PO 01/26/21 20:00 01/30/21 18:01 DC 01/30/21 09:19 Mirtazapine (Remeron) 7.5 mg QHS PO 01/27/21 21:00 01/27/21 21:00 Cancel Trazodone HCl (Desyrel) 100 mg PRN QHS PRN PO insomnia 01/27/21 19:45 01/27/21 22:39 Gabapentin (Neurontin) 100 mg BID PO 01/28/21 21:00 02/02/21 19:44 Divalproex Sodium (Depakote Sprinkles) 500 mg BID PO 01/30/21 21:00 02/02/21 19:44 I have reviewed the current psychotropics carefully including drug interactions. Risk benefit ratio favors no change other than as noted in my dictated progress note. Diagnosis: Problems: (1) Schizoaffective disorder, bipolar type (2) Anxiety disorder, unspecified (3) Bipolar disorder, current episode depressed, severe, with psychotic features (4) Major depressive disorder with psychotic features (5) Impulse control disorder, unspecified (6) Personality disorder, unspecified AURA HOLDER MD Feb 03, 2021 08:22
--- NOTE | 2021-02-03 08:38 | PDOC ---
Exam Note: Elier Note: This note is a late entry for 02/02/2021 covers elements not covered in my initial note. Subjective: The patient was seen individually in the evening of 02/02/2021 with Jocelyn GAVIRIA, discussed and reviewed the chart. The patient slept 5-3/4 previous night. He has been hollering, attention seeking, appearing helpless, asked the nursing staff to put his feet up and they encouraged him to do it himself. He used profanity with the F word with the nursing staff. We will check valproic acid level in the morning. Review of Systems: Ambulation impaired with walker. No CV, , pulmonary, eye, ENT system symptoms on review. Reliability fair. Mental Status Exam: The patient is oriented reasonably. Speech is coherent. Abstraction fair. Computation impaired. Language function intact. Attention span short. Mood and affect anxious. Laboratory Data: Reviewed. Impression: Schizoaffective disorder bipolar type mixed with psychotic feature s. Anxiety disorder unspecified. Plan: No change from initial note. Assessment: Vital Signs/I&O: Vital Signs Date Time Temp Pulse Resp B/P (MAP) Pulse Ox O2 Delivery O2 Flow Rate FiO2 02/03/21 05:58 97.5 83 18 109/77 (88) 92 02/02/21 05:42 2.0 I & O 02/02/21 02/02/21 02/03/21 14:59 22:59 06:59 Intake Total 960 ml 480 ml Balance 960 ml 480 ml Labs: Laboratory Tests Test 02/03/21 05:51 White Blood Count 4.9 x10^3/uL (4.0-11.0) Red Blood Count 4.36 x10^6/uL (4.30-5.70) Hemoglobin 13.6 g/dL (13.0-17.5) Hematocrit 41.7 % (39.0-53.0) Mean Corpuscular Volume 96 fL (79-100) Mean Corpuscular Hemoglobin 31 pg (25-35) Mean Corpuscular Hemoglobin Concent 33 g/dL (31-37) Red Cell Distribution Width 14.1 % (11.5-14.5) Platelet Count 174 x10^3/uL (140-400) Neutrophils (%) (Auto) 46 % (31-73) Lymphocytes (%) (Auto) 35 % (24-48) Monocytes (%) (Auto) 14 % (0-9) H Eosinophils (%) (Auto) 4 % (0-3) H Basophils (%) (Auto) 1 % (0-3) Neutrophils # (Auto) 2.3 x10^3uL (1.8-7.7) Lymphocytes # (Auto) 1.7 x10^3/uL (1.0-4.8) Monocytes # (Auto) 0.7 x10^3/uL (0.0-1.1) Eosinophils # (Auto) 0.2 x10^3/uL (0.0-0.7) Basophils # (Auto) 0.0 x10^3/uL (0.0-0.2) Sodium Level 142 mmol/L (136-145) Potassium Level 4.4 mmol/L (3.5-5.1) Chloride Level 104 mmol/L (98-107) Carbon Dioxide Level 34 mmol/L (21-32) H Anion Gap 4 (6-14) L Blood Urea Nitrogen 11 mg/dL (8-26) Creatinine 0.7 mg/dL (0.7-1.3) Estimated GFR (Cockcroft-Gault) 110.2 BUN/Creatinine Ratio 16 (6-20) Glucose Level 84 mg/dL (70-99) Calcium Level 9.6 mg/dL (8.5-10.1) Total Bilirubin 0.4 mg/dL (0.2-1.0) Aspartate Amino Transferase (AST) 42 U/L (15-37) H Alanine Aminotransferase (ALT) 72 U/L (16-63) H Alkaline Phosphatase 76 U/L (46-116) Ammonia 53 mcmol/L (11-34) H Total Protein 6.5 g/dL (6.4-8.2) Albumin 2.8 g/dL (3.4-5.0) L Albumin/Globulin Ratio 0.8 (1.0-1.7) L Valproic Acid Level 48 mcg/mL (50-100) L Valproic Acid Last Dose Date 02/02/21 Valproic Acid Last Dose Time 2100 Current Medications: Meds: Laboratory Tests Test 02/03/21 05:51 White Blood Count 4.9 x10^3/uL Red Blood Count 4.36 x10^6/uL Hemoglobin 13.6 g/dL Hematocrit 41.7 % Mean Corpuscular Volume 96 fL Mean Corpuscular Hemoglobin 31 pg Mean Corpuscular Hemoglobin Concent 33 g/dL Red Cell Distribution Width 14.1 % Platelet Count 174 x10^3/uL Neutrophils (%) (Auto) 46 % Lymphocytes (%) (Auto) 35 % Monocytes (%) (Auto) 14 % Eosinophils (%) (Auto) 4 % Basophils (%) (Auto) 1 % Neutrophils # (Auto) 2.3 x10^3uL Lymphocytes # (Auto) 1.7 x10^3/uL Monocytes # (Auto) 0.7 x10^3/uL Eosinophils # (Auto) 0.2 x10^3/uL Basophils # (Auto) 0.0 x10^3/uL Sodium Level 142 mmol/L Potassium Level 4.4 mmol/L Chloride Level 104 mmol/L Carbon Dioxide Level 34 mmol/L Anion Gap 4 Blood Urea Nitrogen 11 mg/dL Creatinine 0.7 mg/dL Estimated GFR (Cockcroft-Gault) 110.2 BUN/Creatinine Ratio 16 Glucose Level 84 mg/dL Calcium Level 9.6 mg/dL Total Bilirubin 0.4 mg/dL Aspartate Amino Transf (AST/SGOT) 42 U/L Alanine Aminotransferase (ALT/SGPT) 72 U/L Alkaline Phosphatase 76 U/L Ammonia 53 mcmol/L Total Protein 6.5 g/dL Albumin 2.8 g/dL Albumin/Globulin Ratio 0.8 Valproic Acid (Depakene) Level 48 mcg/mL Valproic Acid Last Dose Date 02/02/21 Valproic Acid Last Dose Time 2100 Current Medications Medications (Trade) Dose Ordered Sig/Stuart Route PRN Reason Start Time Stop Time Status Last Admin Dose Admin Acetaminophen (Tylenol) 650 mg PRN Q6HRS PRN PO MILD PAIN / TEMP > 100.3'F 01/23/21 21:45 02/03/21 05:27 Multi-Ingredient Ointment (Analgesic [place]) 1 lalo PRN QID PRN TP MUSCLE PAIN 01/23/21 21:45 Al Hydroxide/Mg Hydroxide (Mylanta Plus Xs) 15 ml PRN AFTMEALHC PRN PO DYSPEPSIA 01/23/21 21:45 Magnesium Hydroxide (Milk Of Magnesia) 2,400 mg PRN QHS PRN PO CONSTIPATION 01/23/21 21:45 Divalproex Sodium (Depakote) 250 mg BID PO 01/24/21 09:00 01/26/21 19:53 DC 01/26/21 09:09 Haloperidol (Haldol) 1 mg BID PO 01/24/21 09:00 01/24/21 19:37 DC 01/24/21 09:08 Trazodone HCl (Desyrel) 100 mg QHS PO 01/24/21 21:00 02/02/21 19:44 Apixaban (Eliquis) 5 mg BID PO 01/24/21 09:00 02/02/21 19:44 Clotrimazole (Lotrimin) 1 lalo PRN Q12HR PRN TP REDNESS 01/23/21 23:00 Docusate Sodium (Colace) 100 mg DAILY PO 01/24/21 09:00 02/02/21 08:47 Famotidine (Pepcid) 20 mg DAILY PO 01/24/21 09:00 02/02/21 08:46 Finasteride (Proscar) 5 mg DAILY PO 01/24/21 09:00 02/02/21 08:46 Furosemide (Lasix) 40 mg DAILY PO 01/24/21 09:00 02/02/21 08:46 Metoprolol Tartrate (Lopressor) 25 mg BID PO 01/24/21 09:00 02/02/21 08:47 Potassium Chloride (Klor-Con) 20 meq DAILY PO 01/24/21 09:00 02/02/21 08:47 Tamsulosin HCl (Flomax) 0.4 mg DAILY PO 01/24/21 09:00 02/02/21 08:47 Artificial Tears (Artificial Tears) 1 drop PRN Q8HRS PRN OU DRY EYE 01/23/21 23:15 Non-Formulary Medication (Cimetidine ) 200 mg BID PO 01/24/21 09:00 UNV Diltiazem HCl (Cardizem 24hr Cd) 120 mg DAILY PO 01/24/21 09:00 02/02/21 08:47 Throat Lozenges (Cepacol Sore Throat Lozenge) 1 brayan PRN Q3HRS PRN PO SORE THROAT 01/23/21 23:15 Polyethylene Glycol (miraLAX) 17 gm QMWF PO 01/24/21 16:00 01/31/21 16:01 Info (Anti-Coagulation Monitoring By Pharmacy) 1 each PRN DAILY PRN MC PER PROTOCOL 01/23/21 23:15 Nystatin (Nystop) 1 lalo BID TP 01/24/21 09:00 02/02/21 19:45 Haloperidol (Haldol) 1 mg QHS PO 01/24/21 21:00 02/02/21 19:44 Sertraline HCl (Zoloft) 25 mg DAILY PO 01/25/21 09:00 01/27/21 12:00 DC 01/27/21 08:57 Sertraline HCl (Zoloft) 50 mg DAILY PO 01/28/21 09:00 02/02/21 08:46 Ropinirole HCl (Requip) 0.5 mg TID PO 01/25/21 21:00 02/02/21 19:44 Divalproex Sodium (Depakote Sprinkles) 375 mg BID PO 01/26/21 20:00 01/30/21 18:01 DC 01/30/21 09:19 Mirtazapine (Remeron) 7.5 mg QHS PO 01/27/21 21:00 01/27/21 21:00 Cancel Trazodone HCl (Desyrel) 100 mg PRN QHS PRN PO insomnia 01/27/21 19:45 01/27/21 22:39 Gabapentin (Neurontin) 100 mg BID PO 01/28/21 21:00 02/02/21 19:44 Divalproex Sodium (Depakote Sprinkles) 500 mg BID PO 01/30/21 21:00 02/02/21 19:44 I have reviewed the current psychotropics carefully including drug interactions. Risk benefit ratio favors no change other than as noted in my dictated progress note. Diagnosis: Problems: (1) Schizoaffective disorder, bipolar type (2) Anxiety disorder, unspecified (3) Bipolar disorder, current episode depressed, severe, with psychotic features (4) Major depressive disorder with psychotic features (5) Impulse control disorder, unspecified (6) Personality disorder, unspecified AURA HOLDER MD Feb 03, 2021 08:38
[2021-02-03] MEDS: FINASTERIDE 5 MG TABLET. PO SCH (08:56)
[2021-02-03] MEDS: FUROSEMIDE 40 MG TABLET PO SCH (08:56)
[2021-02-03] MEDS: SERTRALINE 50 MG TABLET. PO SCH (08:56)
[2021-02-03] MEDS: DIVALPROEX 125 MG CAP.SPRINK PO SCH ×2 (08:56→20:22)
[2021-02-03] MEDS: GABAPENTIN 100 MG CAPSULE. PO SCH ×2 (08:56→20:21)
[2021-02-03] MEDS: DOCUSATE SODIUM 100 MG CAPSULE PO SCH (08:56)
[2021-02-03] MEDS: APIXABAN 5 MG TABLET. PO SCH ×2 (08:56→20:21)
[2021-02-03] MEDS: FAMOTIDINE 20 MG TABLET PO SCH (08:57)
[2021-02-03] MEDS: METOPROLOL TART IMMED RELEASE 25 MG TABLET. PO SCH (08:57)
[2021-02-03] MEDS: TAMSULOSIN 0.4 MG CAP.ER.24H. PO SCH (08:57)
[2021-02-03] MEDS: NYSTATIN TOPICAL POWDER 15GM BOTTLE. TP SCH ×2 (08:57→20:22)
[2021-02-03] MEDS: rOPINIRole 0.5 MG TABLET. PO SCH ×3 (08:57→20:21)
[2021-02-03] MEDS: POTASSIUM CHLORIDE 20 MEQ TABLET.ER. PO SCH (08:57)
[2021-02-03 15:48] VITALS: BP 91/66
[2021-02-03 16:00] VITALS: BP_SYST 87; BP_SYST 90; BP_DIAS 55; BP_DIAS 58
[2021-02-03] MEDS: POLYETHYLENE GLYCOL 3350 17 GM PACKET. PO SCH (16:37)
--- NOTE | 2021-02-03 20:10 | PDOC ---
Exam Note: Elier Note: Please also refer to the separate dictated note~for this date of service dictated separately.~Patient seen individually. Discussed the patient with Nursing staff reviewed the chart.~Reviewed interim history and current functioning. Reviewed vital signs,~Labs/ Radiology~and current medications noted below. Continue current treatment with the changes noted in the dictated addendum note Assessment: Vital Signs/I&O: Vital Signs Date Time Temp Pulse Resp B/P (MAP) Pulse Ox O2 Delivery O2 Flow Rate FiO2 02/03/21 16:00 59 87/58 (68) 02/03/21 15:48 97.0 14 95 Room Air 02/02/21 05:42 2.0 I & O 02/02/21 02/02/21 02/03/21 15:00 23:00 07:00 Intake Total 960 ml 480 ml Balance 960 ml 480 ml Labs: Laboratory Tests Test 02/03/21 05:51 02/03/21 15:20 White Blood Count 4.9 x10^3/uL (4.0-11.0) Red Blood Count 4.36 x10^6/uL (4.30-5.70) Hemoglobin 13.6 g/dL (13.0-17.5) Hematocrit 41.7 % (39.0-53.0) Mean Corpuscular Volume 96 fL (79-100) Mean Corpuscular Hemoglobin 31 pg (25-35) Mean Corpuscular Hemoglobin Concent 33 g/dL (31-37) Red Cell Distribution Width 14.1 % (11.5-14.5) Platelet Count 174 x10^3/uL (140-400) Neutrophils (%) (Auto) 46 % (31-73) Lymphocytes (%) (Auto) 35 % (24-48) Monocytes (%) (Auto) 14 % (0-9) H Eosinophils (%) (Auto) 4 % (0-3) H Basophils (%) (Auto) 1 % (0-3) Neutrophils # (Auto) 2.3 x10^3uL (1.8-7.7) Lymphocytes # (Auto) 1.7 x10^3/uL (1.0-4.8) Monocytes # (Auto) 0.7 x10^3/uL (0.0-1.1) Eosinophils # (Auto) 0.2 x10^3/uL (0.0-0.7) Basophils # (Auto) 0.0 x10^3/uL (0.0-0.2) Sodium Level 142 mmol/L (136-145) Potassium Level 4.4 mmol/L (3.5-5.1) Chloride Level 104 mmol/L (98-107) Carbon Dioxide Level 34 mmol/L (21-32) H Anion Gap 4 (6-14) L Blood Urea Nitrogen 11 mg/dL (8-26) Creatinine 0.7 mg/dL (0.7-1.3) Estimated GFR (Cockcroft-Gault) 110.2 BUN/Creatinine Ratio 16 (6-20) Glucose Level 84 mg/dL (70-99) Calcium Level 9.6 mg/dL (8.5-10.1) Total Bilirubin 0.4 mg/dL (0.2-1.0) Aspartate Amino Transferase (AST) 42 U/L (15-37) H Alanine Aminotransferase (ALT) 72 U/L (16-63) H Alkaline Phosphatase 76 U/L (46-116) Ammonia 53 mcmol/L (11-34) H Total Protein 6.5 g/dL (6.4-8.2) Albumin 2.8 g/dL (3.4-5.0) L Albumin/Globulin Ratio 0.8 (1.0-1.7) L Valproic Acid Level 48 mcg/mL (50-100) L Valproic Acid Last Dose Date 02/02/21 Valproic Acid Last Dose Time 2100 Glucose (Fingerstick) 99 mg/dL (70-99) Current Medications: Meds: Laboratory Tests Test 02/03/21 05:51 02/03/21 15:20 White Blood Count 4.9 x10^3/uL Red Blood Count 4.36 x10^6/uL Hemoglobin 13.6 g/dL Hematocrit 41.7 % Mean Corpuscular Volume 96 fL Mean Corpuscular Hemoglobin 31 pg Mean Corpuscular Hemoglobin Concent 33 g/dL Red Cell Distribution Width 14.1 % Platelet Count 174 x10^3/uL Neutrophils (%) (Auto) 46 % Lymphocytes (%) (Auto) 35 % Monocytes (%) (Auto) 14 % Eosinophils (%) (Auto) 4 % Basophils (%) (Auto) 1 % Neutrophils # (Auto) 2.3 x10^3uL Lymphocytes # (Auto) 1.7 x10^3/uL Monocytes # (Auto) 0.7 x10^3/uL Eosinophils # (Auto) 0.2 x10^3/uL Basophils # (Auto) 0.0 x10^3/uL Sodium Level 142 mmol/L Potassium Level 4.4 mmol/L Chloride Level 104 mmol/L Carbon Dioxide Level 34 mmol/L Anion Gap 4 Blood Urea Nitrogen 11 mg/dL Creatinine 0.7 mg/dL Estimated GFR (Cockcroft-Gault) 110.2 BUN/Creatinine Ratio 16 Glucose Level 84 mg/dL Calcium Level 9.6 mg/dL Total Bilirubin 0.4 mg/dL Aspartate Amino Transf (AST/SGOT) 42 U/L Alanine Aminotransferase (ALT/SGPT) 72 U/L Alkaline Phosphatase 76 U/L Ammonia 53 mcmol/L Total Protein 6.5 g/dL Albumin 2.8 g/dL Albumin/Globulin Ratio 0.8 Valproic Acid (Depakene) Level 48 mcg/mL Valproic Acid Last Dose Date 02/02/21 Valproic Acid Last Dose Time 2100 Glucose (Fingerstick) 99 mg/dL Current Medications Medications (Trade) Dose Ordered Sig/Stuart Route PRN Reason Start Time Stop Time Status Last Admin Dose Admin Acetaminophen (Tylenol) 650 mg PRN Q6HRS PRN PO MILD PAIN / TEMP > 100.3'F 01/23/21 21:45 02/03/21 05:27 Multi-Ingredient Ointment (Analgesic [place]) 1 lalo PRN QID PRN TP MUSCLE PAIN 01/23/21 21:45 Al Hydroxide/Mg Hydroxide (Mylanta Plus Xs) 15 ml PRN AFTMEALHC PRN PO DYSPEPSIA 01/23/21 21:45 Magnesium Hydroxide (Milk Of Magnesia) 2,400 mg PRN QHS PRN PO CONSTIPATION 01/23/21 21:45 Divalproex Sodium (Depakote) 250 mg BID PO 01/24/21 09:00 01/26/21 19:53 DC 01/26/21 09:09 Haloperidol (Haldol) 1 mg BID PO 01/24/21 09:00 01/24/21 19:37 DC 01/24/21 09:08 Trazodone HCl (Desyrel) 100 mg QHS PO 01/24/21 21:00 02/02/21 19:44 Apixaban (Eliquis) 5 mg BID PO 01/24/21 09:00 02/03/21 08:56 Clotrimazole (Lotrimin) 1 lalo PRN Q12HR PRN TP REDNESS 01/23/21 23:00 Docusate Sodium (Colace) 100 mg DAILY PO 01/24/21 09:00 02/03/21 08:56 Famotidine (Pepcid) 20 mg DAILY PO 01/24/21 09:00 02/03/21 08:57 Finasteride (Proscar) 5 mg DAILY PO 01/24/21 09:00 02/03/21 08:56 Furosemide (Lasix) 40 mg DAILY PO 01/24/21 09:00 02/03/21 16:28 DC 02/03/21 08:56 Metoprolol Tartrate (Lopressor) 25 mg BID PO 01/24/21 09:00 02/03/21 16:28 DC 02/03/21 08:57 Potassium Chloride (Klor-Con) 20 meq DAILY PO 01/24/21 09:00 02/03/21 16:28 DC 02/03/21 08:57 Tamsulosin HCl (Flomax) 0.4 mg DAILY PO 01/24/21 09:00 02/03/21 08:57 Artificial Tears (Artificial Tears) 1 drop PRN Q8HRS PRN OU DRY EYE 01/23/21 23:15 Non-Formulary Medication (Cimetidine ) 200 mg BID PO 01/24/21 09:00 UNV Diltiazem HCl (Cardizem 24hr Cd) 120 mg DAILY PO 01/24/21 09:00 02/03/21 16:28 DC 02/03/21 08:56 Throat Lozenges (Cepacol Sore Throat Lozenge) 1 brayan PRN Q3HRS PRN PO SORE THROAT 01/23/21 23:15 Polyethylene Glycol (miraLAX) 17 gm QMWF PO 01/24/21 16:00 02/03/21 16:37 Info (Anti-Coagulation Monitoring By Pharmacy) 1 each PRN DAILY PRN MC PER PROTOCOL 01/23/21 23:15 Nystatin (Nystop) 1 lalo BID TP 01/24/21 09:00 02/03/21 08:57 Haloperidol (Haldol) 1 mg QHS PO 01/24/21 21:00 02/02/21 19:44 Sertraline HCl (Zoloft) 25 mg DAILY PO 01/25/21 09:00 01/27/21 12:00 DC 01/27/21 08:57 Sertraline HCl (Zoloft) 50 mg DAILY PO 01/28/21 09:00 02/03/21 08:56 Ropinirole HCl (Requip) 0.5 mg TID PO 01/25/21 21:00 02/03/21 13:32 Divalproex Sodium (Depakote Sprinkles) 375 mg BID PO 01/26/21 20:00 01/30/21 18:01 DC 01/30/21 09:19 Mirtazapine (Remeron) 7.5 mg QHS PO 01/27/21 21:00 01/27/21 21:00 Cancel Trazodone HCl (Desyrel) 100 mg PRN QHS PRN PO insomnia 01/27/21 19:45 01/27/21 22:39 Gabapentin (Neurontin) 100 mg BID PO 01/28/21 21:00 02/03/21 08:56 Divalproex Sodium (Depakote Sprinkles) 500 mg BID PO 01/30/21 21:00 02/03/21 19:37 DC 02/03/21 08:56 Divalproex Sodium (Depakote Sprinkles) 625 mg BID PO 02/03/21 21:00 I have reviewed the current psychotropics carefully including drug interactions. Risk benefit ratio favors no change other than as noted in my dictated progress note. Diagnosis: Problems: (1) Schizoaffective disorder, bipolar type (2) Anxiety disorder, unspecified (3) Bipolar disorder, current episode depressed, severe, with psychotic features (4) Major depressive disorder with psychotic features (5) Impulse control disorder, unspecified (6) Personality disorder, unspecified AURA HOLDER MD Feb 03, 2021 20:10
[2021-02-03] MEDS: traZODone 100 MG TABLET. PO SCH (20:21)
[2021-02-03] MEDS: HALOPERIDOL 1 MG TABLET PO SCH (20:21)
[2021-02-04] MEDS: ACETAMINOPHEN 325 MG TABLET PO PRN (00:17)
[2021-02-04 06:05] VITALS: BP 137/93
--- NOTE | 2021-02-04 06:47 | PDOC ---
Exam Note: Elier Note: This note is a late entry for 02/03/2021 covers elements not covered in my initial note. Subjective: The patient was seen individually in the evening of 02/03/2021 with Jocelyn GAVIRIA, discussed and reviewed the chart. The patient slept 5 previous night. I met with the patient in his room. Previous night he was banging on the nursing station window and yelling out at the nursing staff, quite labile in his mood. Review of Systems: Ambulation impaired, in wheelchair. No CV, , pulmonary, eye, ENT system symptoms on review. He was refusing to have shower this e vening. Mental Status Exam: The patient is oriented reasonably. Speech is coherent has some latency. Abstraction fair. Computation impaired. Language function intact. Attention span short. Mood and affect somewhat labile. Laboratory Data: Reviewed. Impression: Schizoaffective disorder bipolar type mixed with psychotic features. Anxiety disorder unspecified. Plan: No change from initial note. Valproic acid level today is 48 subtherapeutic. Increase Depakote Sprinkle from 500 mg b.i.d. to 625 mg b.i.d. Check CBC, CMP, valproic acid level in 3 days. Assessment: Vital Signs/I&O: Vital Signs Date Time Temp Pulse Resp B/P (MAP) Pulse Ox O2 Delivery O2 Flow Rate FiO2 02/04/21 06:05 97.5 89 18 137/93 (108) 92 Nasal Cannula 2.0 I & O 02/03/21 02/03/21 02/04/21 15:00 23:00 07:00 Intake Total 480 ml 600 ml Balance 480 ml 600 ml Labs: Laboratory Tests Test 02/03/21 15:20 Glucose (Fingerstick) 99 mg/dL (70-99) Current Medications: Meds: Laboratory Tests Test 02/03/21 15:20 Glucose (Fingerstick) 99 mg/dL Current Medications Medications (Trade) Dose Ordered Sig/Stuart Route PRN Reason Start Time Stop Time Status Last Admin Dose Admin Acetaminophen (Tylenol) 650 mg PRN Q6HRS PRN PO MILD PAIN / TEMP > 100.3'F 01/23/21 21:45 02/04/21 00:17 Multi-Ingredient Ointment (Analgesic [place]) 1 lalo PRN QID PRN TP MUSCLE PAIN 01/23/21 21:45 Al Hydroxide/Mg Hydroxide (Mylanta Plus Xs) 15 ml PRN AFTMEALHC PRN PO DYSPEPSIA 01/23/21 21:45 Magnesium Hydroxide (Milk Of Magnesia) 2,400 mg PRN QHS PRN PO CONSTIPATION 01/23/21 21:45 Divalproex Sodium (Depakote) 250 mg BID PO 01/24/21 09:00 01/26/21 19:53 DC 01/26/21 09:09 Haloperidol (Haldol) 1 mg BID PO 01/24/21 09:00 01/24/21 19:37 DC 01/24/21 09:08 Trazodone HCl (Desyrel) 100 mg QHS PO 01/24/21 21:00 02/03/21 20:21 Apixaban (Eliquis) 5 mg BID PO 01/24/21 09:00 02/03/21 20:21 Clotrimazole (Lotrimin) 1 lalo PRN Q12HR PRN TP REDNESS 01/23/21 23:00 Docusate Sodium (Colace) 100 mg DAILY PO 01/24/21 09:00 02/03/21 08:56 Famotidine (Pepcid) 20 mg DAILY PO 01/24/21 09:00 02/03/21 08:57 Finasteride (Proscar) 5 mg DAILY PO 01/24/21 09:00 02/03/21 08:56 Furosemide (Lasix) 40 mg DAILY PO 01/24/21 09:00 02/03/21 16:28 DC 02/03/21 08:56 Metoprolol Tartrate (Lopressor) 25 mg BID PO 01/24/21 09:00 02/03/21 16:28 DC 02/03/21 08:57 Potassium Chloride (Klor-Con) 20 meq DAILY PO 01/24/21 09:00 02/03/21 16:28 DC 02/03/21 08:57 Tamsulosin HCl (Flomax) 0.4 mg DAILY PO 01/24/21 09:00 02/03/21 08:57 Artificial Tears (Artificial Tears) 1 drop PRN Q8HRS PRN OU DRY EYE 01/23/21 23:15 Non-Formulary Medication (Cimetidine ) 200 mg BID PO 01/24/21 09:00 UNV Diltiazem HCl (Cardizem 24hr Cd) 120 mg DAILY PO 01/24/21 09:00 02/03/21 16:28 DC 02/03/21 08:56 Throat Lozenges (Cepacol Sore Throat Lozenge) 1 brayan PRN Q3HRS PRN PO SORE THROAT 01/23/21 23:15 Polyethylene Glycol (miraLAX) 17 gm QMWF PO 01/24/21 16:00 02/03/21 16:37 Info (Anti-Coagulation Monitoring By Pharmacy) 1 each PRN DAILY PRN MC PER PROTOCOL 01/23/21 23:15 Nystatin (Nystop) 1 lalo BID TP 01/24/21 09:00 02/03/21 20:22 Haloperidol (Haldol) 1 mg QHS PO 01/24/21 21:00 02/03/21 20:21 Sertraline HCl (Zoloft) 25 mg DAILY PO 01/25/21 09:00 01/27/21 12:00 DC 01/27/21 08:57 Sertraline HCl (Zoloft) 50 mg DAILY PO 01/28/21 09:00 02/03/21 08:56 Ropinirole HCl (Requip) 0.5 mg TID PO 01/25/21 21:00 02/03/21 20:21 Divalproex Sodium (Depakote Sprinkles) 375 mg BID PO 01/26/21 20:00 01/30/21 18:01 DC 01/30/21 09:19 Mirtazapine (Remeron) 7.5 mg QHS PO 01/27/21 21:00 01/27/21 21:00 Cancel Trazodone HCl (Desyrel) 100 mg PRN QHS PRN PO insomnia 01/27/21 19:45 01/27/21 22:39 Gabapentin (Neurontin) 100 mg BID PO 01/28/21 21:00 02/03/21 20:21 Divalproex Sodium (Depakote Sprinkles) 500 mg BID PO 01/30/21 21:00 02/03/21 19:37 DC 02/03/21 08:56 Divalproex Sodium (Depakote Sprinkles) 625 mg BID PO 02/03/21 21:00 12/13/21 20:22 Current Medications Medications (Trade) Dose Ordered Sig/Stuart Route PRN Reason Start Time Stop Time Status Last Admin Dose Admin Divalproex Sodium (Depakote Sprinkles) 625 mg BID PO 02/03/21 21:00 02/03/21 20:22 I have reviewed the current psychotropics carefully including drug interactions. Risk benefit ratio favors no change other than as noted in my dictated progress note. Diagnosis: Problems: (1) Schizoaffective disorder, bipolar type (2) Anxiety disorder, unspecified (3) Bipolar disorder, current episode depressed, severe, with psychotic features (4) Major depressive disorder with psychotic features (5) Impulse control disorder, unspecified (6) Personality disorder, unspecified AURA HOLDER MD Feb 04, 2021 06:47
[2021-02-04] MEDS: APIXABAN 5 MG TABLET. PO SCH ×2 (07:42→20:34)
[2021-02-04] MEDS: DIVALPROEX 125 MG CAP.SPRINK PO SCH ×2 (07:42→20:34)
[2021-02-04] MEDS: TAMSULOSIN 0.4 MG CAP.ER.24H. PO SCH (07:43)
[2021-02-04] MEDS: NYSTATIN TOPICAL POWDER 15GM BOTTLE. TP SCH ×2 (07:43→20:34)
[2021-02-04] MEDS: GABAPENTIN 100 MG CAPSULE. PO SCH (07:43)
[2021-02-04] MEDS: rOPINIRole 0.5 MG TABLET. PO SCH ×3 (07:43→20:34)
[2021-02-04] MEDS: FINASTERIDE 5 MG TABLET. PO SCH (07:43)
[2021-02-04] MEDS: FAMOTIDINE 20 MG TABLET PO SCH (07:43)
[2021-02-04] MEDS: DOCUSATE SODIUM 100 MG CAPSULE PO SCH (07:43)
[2021-02-04] MEDS: SERTRALINE 50 MG TABLET. PO SCH (07:43)
[2021-02-04 16:10] VITALS: BP 119/77
[2021-02-04] MEDS: HALOPERIDOL 1 MG TABLET PO SCH (20:34)
[2021-02-04] MEDS: traZODone 100 MG TABLET. PO SCH (20:34)
--- NOTE | 2021-02-04 21:06 | PDOC ---
Exam Note: Elier Note: Please also refer to the separate dictated note~for this date of service dictated separately.~Patient seen individually. Discussed the patient with Nursing staff reviewed the chart.~Reviewed interim history and current functioning. Reviewed vital signs,~Labs/ Radiology~and current medications noted below. Continue current treatment with the changes noted in the dictated addendum note Assessment: Vital Signs/I&O: Vital Signs Date Time Temp Pulse Resp B/P (MAP) Pulse Ox O2 Delivery O2 Flow Rate FiO2 02/04/21 16:10 97.3 79 19 119/77 (91) 92 02/04/21 06:05 Nasal Cannula 2.0 I & O 02/03/21 02/03/21 02/04/21 14:59 22:59 06:59 Intake Total 480 ml 600 ml Balance 480 ml 600 ml Current Medications: Meds: Current Medications Medications (Trade) Dose Ordered Sig/Stuart Route PRN Reason Start Time Stop Time Status Last Admin Dose Admin Acetaminophen (Tylenol) 650 mg PRN Q6HRS PRN PO MILD PAIN / TEMP > 100.3'F 01/23/21 21:45 02/04/21 00:17 Multi-Ingredient Ointment (Analgesic [place]) 1 lalo PRN QID PRN TP MUSCLE PAIN 01/23/21 21:45 Al Hydroxide/Mg Hydroxide (Mylanta Plus Xs) 15 ml PRN AFTMEALHC PRN PO DYSPEPSIA 01/23/21 21:45 Magnesium Hydroxide (Milk Of Magnesia) 2,400 mg PRN QHS PRN PO CONSTIPATION 01/23/21 21:45 Divalproex Sodium (Depakote) 250 mg BID PO 01/24/21 09:00 01/26/21 19:53 DC 01/26/21 09:09 Haloperidol (Haldol) 1 mg BID PO 01/24/21 09:00 01/24/21 19:37 DC 01/24/21 09:08 Trazodone HCl (Desyrel) 100 mg QHS PO 01/24/21 21:00 02/04/21 20:34 Apixaban (Eliquis) 5 mg BID PO 01/24/21 09:00 02/04/21 20:34 Clotrimazole (Lotrimin) 1 lalo PRN Q12HR PRN TP REDNESS 01/23/21 23:00 Docusate Sodium (Colace) 100 mg DAILY PO 01/24/21 09:00 02/04/21 07:43 Famotidine (Pepcid) 20 mg DAILY PO 01/24/21 09:00 02/04/21 07:43 Finasteride (Proscar) 5 mg DAILY PO 01/24/21 09:00 02/04/21 07:43 Furosemide (Lasix) 40 mg DAILY PO 01/24/21 09:00 02/03/21 16:28 DC 02/03/21 08:56 Metoprolol Tartrate (Lopressor) 25 mg BID PO 01/24/21 09:00 02/03/21 16:28 DC 02/03/21 08:57 Potassium Chloride (Klor-Con) 20 meq DAILY PO 01/24/21 09:00 02/03/21 16:28 DC 02/03/21 08:57 Tamsulosin HCl (Flomax) 0.4 mg DAILY PO 01/24/21 09:00 02/04/21 13:22 DC 02/04/21 07:43 Artificial Tears (Artificial Tears) 1 drop PRN Q8HRS PRN OU DRY EYE 01/23/21 23:15 Non-Formulary Medication (Cimetidine ) 200 mg BID PO 01/24/21 09:00 UNV Diltiazem HCl (Cardizem 24hr Cd) 120 mg DAILY PO 01/24/21 09:00 02/03/21 16:28 DC 02/03/21 08:56 Throat Lozenges (Cepacol Sore Throat Lozenge) 1 brayan PRN Q3HRS PRN PO SORE THROAT 01/23/21 23:15 Polyethylene Glycol (miraLAX) 17 gm QMWF PO 01/24/21 16:00 02/03/21 16:37 Info (Anti-Coagulation Monitoring By Pharmacy) 1 each PRN DAILY PRN MC PER PROTOCOL 01/23/21 23:15 Nystatin (Nystop) 1 lalo BID TP 01/24/21 09:00 02/04/21 20:34 Haloperidol (Haldol) 1 mg QHS PO 01/24/21 21:00 02/04/21 20:34 Sertraline HCl (Zoloft) 25 mg DAILY PO 01/25/21 09:00 01/27/21 12:00 DC 01/27/21 08:57 Sertraline HCl (Zoloft) 50 mg DAILY PO 01/28/21 09:00 02/04/21 07:43 Ropinirole HCl (Requip) 0.5 mg TID PO 01/25/21 21:00 02/04/21 20:34 Divalproex Sodium (Depakote Sprinkles) 375 mg BID PO 01/26/21 20:00 01/30/21 18:01 DC 01/30/21 09:19 Mirtazapine (Remeron) 7.5 mg QHS PO 01/27/21 21:00 01/27/21 21:00 Cancel Trazodone HCl (Desyrel) 100 mg PRN QHS PRN PO insomnia 01/27/21 19:45 01/27/21 22:39 Gabapentin (Neurontin) 100 mg BID PO 01/28/21 21:00 02/04/21 13:22 DC 02/04/21 07:43 Divalproex Sodium (Depakote Sprinkles) 500 mg BID PO 01/30/21 21:00 02/03/21 19:37 DC 02/03/21 08:56 Divalproex Sodium (Depakote Sprinkles) 625 mg BID PO 02/03/21 21:00 02/04/21 20:34 I have reviewed the current psychotropics carefully including drug interactions. Risk benefit ratio favors no change other than as noted in my dictated progress note. Diagnosis: Problems: (1) Schizoaffective disorder, bipolar type (2) Anxiety disorder, unspecified (3) Bipolar disorder, current episode depressed, severe, with psychotic features (4) Major depressive disorder with psychotic features (5) Impulse control disorder, unspecified (6) Personality disorder, unspecified AURA HOLDER MD Feb 04, 2021 21:05
[2021-02-05 05:59] VITALS: BP 116/74
--- NOTE | 2021-02-05 07:31 | PDOC ---
Exam Note: Elier Note: This note is a late entry for 02/04/2021 covers elements not covered in my initial note. Subjective: The patient was seen individually in the evening of 02/04/2021 with Jocelyn GAVIRIA, discussed and reviewed the chart. The patient slept 6-1/2 previous night. He has been hollering at times during the day. Previous night he was attention seeking, better today during the day. I met with him in his room. Review of Systems: Ambulation impaired, in wheelchair. No CV, , pulmonary, eye, ENT system symptoms on review. He is somewhat tired. Mental Status Exam: The patient is oriented to himself and situation. Speech is coherent. Abstraction fair. Computation impaired. Language function intact. Mood and affect improved. Attention span somewhat distractible. Laboratory Data: Reviewed. Impression: Schizoaffective disorder bipolar type mixed with psychotic features. Anxiety disorder unspecified. Plan: No change from initial note. We will check valproic acid level on 02/07 and adjust Depakote thereafter. Maintain rest of the psychotropics unchanged. Assessment: Vital Signs/I&O: Vital Signs Date Time Temp Pulse Resp B/P (MAP) Pulse Ox O2 Delivery O2 Flow Rate FiO2 02/05/21 05:59 98.0 95 18 116/74 (88) 90 02/04/21 06:05 Nasal Cannula 2.0 I & O 02/04/21 02/04/21 02/05/21 15:00 23:00 07:00 Intake Total 1040 ml 480 ml 240 ml Balance 1040 ml 480 ml 240 ml Current Medications: Meds: Current Medications Medications (Trade) Dose Ordered Sig/Stuart Route PRN Reason Start Time Stop Time Status Last Admin Dose Admin Acetaminophen (Tylenol) 650 mg PRN Q6HRS PRN PO MILD PAIN / TEMP > 100.3'F 01/23/21 21:45 02/04/21 00:17 Multi-Ingredient Ointment (Analgesic [place]) 1 lalo PRN QID PRN TP MUSCLE PAIN 01/23/21 21:45 Al Hydroxide/Mg Hydroxide (Mylanta Plus Xs) 15 ml PRN AFTMEALHC PRN PO DYSPEPSIA 01/23/21 21:45 Magnesium Hydroxide (Milk Of Magnesia) 2,400 mg PRN QHS PRN PO CONSTIPATION 01/23/21 21:45 Divalproex Sodium (Depakote) 250 mg BID PO 01/24/21 09:00 01/26/21 19:53 DC 01/26/21 09:09 Haloperidol (Haldol) 1 mg BID PO 01/24/21 09:00 01/24/21 19:37 DC 01/24/21 09:08 Trazodone HCl (Desyrel) 100 mg QHS PO 01/24/21 21:00 02/04/21 20:34 Apixaban (Eliquis) 5 mg BID PO 01/24/21 09:00 02/04/21 20:34 Clotrimazole (Lotrimin) 1 lalo PRN Q12HR PRN TP REDNESS 01/23/21 23:00 Docusate Sodium (Colace) 100 mg DAILY PO 01/24/21 09:00 02/04/21 07:43 Famotidine (Pepcid) 20 mg DAILY PO 01/24/21 09:00 02/04/21 07:43 Finasteride (Proscar) 5 mg DAILY PO 01/24/21 09:00 02/04/21 07:43 Furosemide (Lasix) 40 mg DAILY PO 01/24/21 09:00 02/03/21 16:28 DC 02/03/21 08:56 Metoprolol Tartrate (Lopressor) 25 mg BID PO 01/24/21 09:00 02/03/21 16:28 DC 02/03/21 08:57 Potassium Chloride (Klor-Con) 20 meq DAILY PO 01/24/21 09:00 02/03/21 16:28 DC 02/03/21 08:57 Tamsulosin HCl (Flomax) 0.4 mg DAILY PO 01/24/21 09:00 02/04/21 13:22 DC 02/04/21 07:43 Artificial Tears (Artificial Tears) 1 drop PRN Q8HRS PRN OU DRY EYE 01/23/21 23:15 Non-Formulary Medication (Cimetidine ) 200 mg BID PO 01/24/21 09:00 UNV Diltiazem HCl (Cardizem 24hr Cd) 120 mg DAILY PO 01/24/21 09:00 02/03/21 16:28 DC 02/03/21 08:56 Throat Lozenges (Cepacol Sore Throat Lozenge) 1 brayan PRN Q3HRS PRN PO SORE THROAT 01/23/21 23:15 Polyethylene Glycol (miraLAX) 17 gm QMWF PO 01/24/21 16:00 02/03/21 16:37 Info (Anti-Coagulation Monitoring By Pharmacy) 1 each PRN DAILY PRN MC PER PROTOCOL 01/23/21 23:15 Nystatin (Nystop) 1 lalo BID TP 01/24/21 09:00 02/04/21 20:34 Haloperidol (Haldol) 1 mg QHS PO 01/24/21 21:00 02/04/21 20:34 Sertraline HCl (Zoloft) 25 mg DAILY PO 01/25/21 09:00 01/27/21 12:00 DC 01/27/21 08:57 Sertraline HCl (Zoloft) 50 mg DAILY PO 01/28/21 09:00 02/04/21 07:43 Ropinirole HCl (Requip) 0.5 mg TID PO 01/25/21 21:00 02/04/21 20:34 Divalproex Sodium (Depakote Sprinkles) 375 mg BID PO 01/26/21 20:00 01/30/21 18:01 DC 01/30/21 09:19 Mirtazapine (Remeron) 7.5 mg QHS PO 01/27/21 21:00 01/27/21 21:00 Cancel Trazodone HCl (Desyrel) 100 mg PRN QHS PRN PO insomnia 01/27/21 19:45 01/27/21 22:39 Gabapentin (Neurontin) 100 mg BID PO 01/28/21 21:00 02/04/21 13:22 DC 02/04/21 07:43 Divalproex Sodium (Depakote Sprinkles) 500 mg BID PO 01/30/21 21:00 02/03/21 19:37 DC 02/03/21 08:56 Divalproex Sodium (Depakote Sprinkles) 625 mg BID PO 02/03/21 21:00 02/04/21 20:34 I have reviewed the current psychotropics carefully including drug interactions. Risk benefit ratio favors no change other than as noted in my dictated progress note. Diagnosis: Problems: (1) Schizoaffective disorder, bipolar type (2) Anxiety disorder, unspecified (3) Bipolar disorder, current episode depressed, severe, with psychotic features (4) Major depressive disorder with psychotic features (5) Impulse control disorder, unspecified (6) Personality disorder, unspecified AURA HOLDER MD Feb 05, 2021 07:31
[2021-02-05] MEDS: FINASTERIDE 5 MG TABLET. PO SCH (08:48)
[2021-02-05] MEDS: rOPINIRole 0.5 MG TABLET. PO SCH ×3 (08:48→20:22)
[2021-02-05] MEDS: FAMOTIDINE 20 MG TABLET PO SCH (08:48)
[2021-02-05] MEDS: APIXABAN 5 MG TABLET. PO SCH ×2 (08:48→20:21)
[2021-02-05] MEDS: DOCUSATE SODIUM 100 MG CAPSULE PO SCH (08:48)
[2021-02-05] MEDS: SERTRALINE 50 MG TABLET. PO SCH (08:48)
[2021-02-05] MEDS: DIVALPROEX 125 MG CAP.SPRINK PO SCH ×2 (08:48→20:22)
[2021-02-05] MEDS: ACETAMINOPHEN 325 MG TABLET PO PRN (08:49)
[2021-02-05] MEDS: NYSTATIN TOPICAL POWDER 15GM BOTTLE. TP SCH ×2 (08:49→20:23)
[2021-02-05] MEDS: POLYETHYLENE GLYCOL 3350 17 GM PACKET. PO SCH (13:57)
[2021-02-05 16:00] VITALS: BP 142/85
[2021-02-05] MEDS: HALOPERIDOL 1 MG TABLET PO SCH (20:21)
[2021-02-05] MEDS: GABAPENTIN 100 MG CAPSULE. PO SCH (20:22)
[2021-02-05] MEDS: traZODone 100 MG TABLET. PO SCH (20:22)
--- NOTE | 2021-02-05 21:00 | PDOC ---
Exam Note: Elier Note: Please also refer to the separate dictated note~for this date of service dictated separately.~Patient seen individually. Discussed the patient with Nursing staff reviewed the chart.~Reviewed interim history and current functioning. Reviewed vital signs,~Labs/ Radiology~and current medications noted below. Continue current treatment with the changes noted in the dictated addendum note Assessment: Vital Signs/I&O: Vital Signs Date Time Temp Pulse Resp B/P (MAP) Pulse Ox O2 Delivery O2 Flow Rate FiO2 02/05/21 16:00 98.0 73 20 142/85 (104) 93 Room Air 02/04/21 06:05 2.0 I & O 02/04/21 02/04/21 02/05/21 15:00 23:00 07:00 Intake Total 1040 ml 480 ml 240 ml Balance 1040 ml 480 ml 240 ml Current Medications: Meds: Current Medications Medications (Trade) Dose Ordered Sig/Stuart Route PRN Reason Start Time Stop Time Status Last Admin Dose Admin Acetaminophen (Tylenol) 650 mg PRN Q6HRS PRN PO MILD PAIN / TEMP > 100.3'F 01/23/21 21:45 02/05/21 08:49 Multi-Ingredient Ointment (Analgesic [place]) 1 lalo PRN QID PRN TP MUSCLE PAIN 01/23/21 21:45 Al Hydroxide/Mg Hydroxide (Mylanta Plus Xs) 15 ml PRN AFTMEALHC PRN PO DYSPEPSIA 01/23/21 21:45 Magnesium Hydroxide (Milk Of Magnesia) 2,400 mg PRN QHS PRN PO CONSTIPATION 01/23/21 21:45 Divalproex Sodium (Depakote) 250 mg BID PO 01/24/21 09:00 01/26/21 19:53 DC 01/26/21 09:09 Haloperidol (Haldol) 1 mg BID PO 01/24/21 09:00 01/24/21 19:37 DC 01/24/21 09:08 Trazodone HCl (Desyrel) 100 mg QHS PO 01/24/21 21:00 02/05/21 20:22 Apixaban (Eliquis) 5 mg BID PO 01/24/21 09:00 02/05/21 20:21 Clotrimazole (Lotrimin) 1 lalo PRN Q12HR PRN TP REDNESS 01/23/21 23:00 Docusate Sodium (Colace) 100 mg DAILY PO 01/24/21 09:00 02/05/21 08:48 Famotidine (Pepcid) 20 mg DAILY PO 01/24/21 09:00 02/05/21 08:48 Finasteride (Proscar) 5 mg DAILY PO 01/24/21 09:00 02/05/21 08:48 Furosemide (Lasix) 40 mg DAILY PO 01/24/21 09:00 02/03/21 16:28 DC 02/03/21 08:56 Metoprolol Tartrate (Lopressor) 25 mg BID PO 01/24/21 09:00 02/03/21 16:28 DC 02/03/21 08:57 Potassium Chloride (Klor-Con) 20 meq DAILY PO 01/24/21 09:00 02/03/21 16:28 DC 02/03/21 08:57 Tamsulosin HCl (Flomax) 0.4 mg DAILY PO 01/24/21 09:00 02/04/21 13:22 DC 02/04/21 07:43 Artificial Tears (Artificial Tears) 1 drop PRN Q8HRS PRN OU DRY EYE 01/23/21 23:15 Non-Formulary Medication (Cimetidine ) 200 mg BID PO 01/24/21 09:00 UNV Diltiazem HCl (Cardizem 24hr Cd) 120 mg DAILY PO 01/24/21 09:00 02/03/21 16:28 DC 02/03/21 08:56 Throat Lozenges (Cepacol Sore Throat Lozenge) 1 brayan PRN Q3HRS PRN PO SORE THROAT 01/23/21 23:15 Polyethylene Glycol (miraLAX) 17 gm QMWF PO 01/24/21 16:00 02/05/21 13:57 Info (Anti-Coagulation Monitoring By Pharmacy) 1 each PRN DAILY PRN MC PER PROTOCOL 01/23/21 23:15 Nystatin (Nystop) 1 lalo BID TP 01/24/21 09:00 02/05/21 08:49 Haloperidol (Haldol) 1 mg QHS PO 01/24/21 21:00 02/05/21 20:21 Sertraline HCl (Zoloft) 25 mg DAILY PO 01/25/21 09:00 01/27/21 12:00 DC 01/27/21 08:57 Sertraline HCl (Zoloft) 50 mg DAILY PO 01/28/21 09:00 02/05/21 08:48 Ropinirole HCl (Requip) 0.5 mg TID PO 01/25/21 21:00 02/05/21 20:22 Divalproex Sodium (Depakote Sprinkles) 375 mg BID PO 01/26/21 20:00 01/30/21 18:01 DC 01/30/21 09:19 Mirtazapine (Remeron) 7.5 mg QHS PO 01/27/21 21:00 01/27/21 21:00 Cancel Trazodone HCl (Desyrel) 100 mg PRN QHS PRN PO insomnia 01/27/21 19:45 01/27/21 22:39 Gabapentin (Neurontin) 100 mg BID PO 01/28/21 21:00 02/04/21 13:22 DC 02/04/21 07:43 Divalproex Sodium (Depakote Sprinkles) 500 mg BID PO 01/30/21 21:00 02/03/21 19:37 DC 02/03/21 08:56 Divalproex Sodium (Depakote Sprinkles) 625 mg BID PO 02/03/21 21:00 02/05/21 20:22 Furosemide (Lasix) 40 mg DAILY PO 02/06/21 09:00 Gabapentin (Neurontin) 100 mg TID PO 02/05/21 21:00 02/05/21 20:22 Current Medications Medications (Trade) Dose Ordered Sig/Stuart Route PRN Reason Start Time Stop Time Status Last Admin Dose Admin Gabapentin (Neurontin) 100 mg TID PO 02/05/21 21:00 02/05/21 20:22 I have reviewed the current psychotropics carefully including drug interactions. Risk benefit ratio favors no change other than as noted in my dictated progress note. Diagnosis: Problems: (1) Schizoaffective disorder, bipolar type (2) Anxiety disorder, unspecified (3) Bipolar disorder, current episode depressed, severe, with psychotic features (4) Major depressive disorder with psychotic features (5) Impulse control disorder, unspecified (6) Personality disorder, unspecified AURA HOLDER MD Feb 05, 2021 21:00
[2021-02-06] MEDS: ACETAMINOPHEN 325 MG TABLET PO PRN ×2 (01:11→21:30)
[2021-02-06 05:50] VITALS: BP 115/91
--- NOTE | 2021-02-06 07:59 | PDOC ---
Exam Note: Elier Note: This note is a late entry for 02/05/2021 covers elements not covered in my initial note. Subjective: The patient was seen individually in the evening of 02/05/2021 with Mike GAVIRIA, discussed and reviewed the chart. The patient slept 6 previous night. He has been acting helpless, needy, somewhat demanding, attention seeking per nursing staff. Repeatedly calling out help me, help me and calling out the nursing staff by name. He has been restarted on gabapentin [address] Padron and tolerating it well. Review of Systems: Ambulation impaired, in wheelchair. No CV, , pulmonary, eye, ENT system symptoms on review. Mental Status Exam: The patient is oriented to himself and situation. I met with him in the dining room. He was a little resistant to taking medications and was stating he will not take them anymore. I had lengthy discussion with him but I am unsure about his insight at this time. Speech is coherent. Abstraction fair. Computation impaired. Language function intact. Mood and affect remains anxious, somewhat labile. Laboratory Data: Reviewed. Impression: Schizoaffective disorder bipolar type mixed with psychotic features. Anxiety disorder unspecified. Plan: Continue current psychotropics, Zoloft, Haldol, ReQuip, Depakote, trazodone and gabapentin. Assessment: Vital Signs/I&O: Vital Signs Date Time Temp Pulse Resp B/P (MAP) Pulse Ox O2 Delivery O2 Flow Rate FiO2 02/06/21 05:50 96.9 106 18 115/91 (99) 91 02/05/21 16:00 Room Air 02/04/21 06:05 2.0 I & O 02/05/21 02/05/21 02/06/21 15:00 23:00 07:00 Intake Total 840 ml 480 ml Balance 840 ml 480 ml Current Medications: Meds: Current Medications Medications (Trade) Dose Ordered Sig/Stuart Route PRN Reason Start Time Stop Time Status Last Admin Dose Admin Acetaminophen (Tylenol) 650 mg PRN Q6HRS PRN PO MILD PAIN / TEMP > 100.3'F 01/23/21 21:45 02/06/21 01:11 Multi-Ingredient Ointment (Analgesic [place]) 1 lalo PRN QID PRN TP MUSCLE PAIN 01/23/21 21:45 Al Hydroxide/Mg Hydroxide (Mylanta Plus Xs) 15 ml PRN AFTMEALHC PRN PO DYSPEPSIA 01/23/21 21:45 Magnesium Hydroxide (Milk Of Magnesia) 2,400 mg PRN QHS PRN PO CONSTIPATION 01/23/21 21:45 Divalproex Sodium (Depakote) 250 mg BID PO 01/24/21 09:00 01/26/21 19:53 DC 01/26/21 09:09 Haloperidol (Haldol) 1 mg BID PO 01/24/21 09:00 01/24/21 19:37 DC 01/24/21 09:08 Trazodone HCl (Desyrel) 100 mg QHS PO 01/24/21 21:00 02/05/21 20:22 Apixaban (Eliquis) 5 mg BID PO 01/24/21 09:00 02/05/21 20:21 Clotrimazole (Lotrimin) 1 lalo PRN Q12HR PRN TP REDNESS 01/23/21 23:00 Docusate Sodium (Colace) 100 mg DAILY PO 01/24/21 09:00 02/05/21 08:48 Famotidine (Pepcid) 20 mg DAILY PO 01/24/21 09:00 02/05/21 08:48 Finasteride (Proscar) 5 mg DAILY PO 01/24/21 09:00 02/05/21 08:48 Furosemide (Lasix) 40 mg DAILY PO 01/24/21 09:00 02/03/21 16:28 DC 02/03/21 08:56 Metoprolol Tartrate (Lopressor) 25 mg BID PO 01/24/21 09:00 02/03/21 16:28 DC 02/03/21 08:57 Potassium Chloride (Klor-Con) 20 meq DAILY PO 01/24/21 09:00 02/03/21 16:28 DC 02/03/21 08:57 Tamsulosin HCl (Flomax) 0.4 mg DAILY PO 01/24/21 09:00 02/04/21 13:22 DC 02/04/21 07:43 Artificial Tears (Artificial Tears) 1 drop PRN Q8HRS PRN OU DRY EYE 01/23/21 23:15 Non-Formulary Medication (Cimetidine ) 200 mg BID PO 01/24/21 09:00 UNV Diltiazem HCl (Cardizem 24hr Cd) 120 mg DAILY PO 01/24/21 09:00 02/03/21 16:28 DC 02/03/21 08:56 Throat Lozenges (Cepacol Sore Throat Lozenge) 1 brayan PRN Q3HRS PRN PO SORE THROAT 01/23/21 23:15 Polyethylene Glycol (miraLAX) 17 gm QMWF PO 01/24/21 16:00 02/05/21 13:57 Info (Anti-Coagulation Monitoring By Pharmacy) 1 each PRN DAILY PRN MC PER PROTOCOL 01/23/21 23:15 Nystatin (Nystop) 1 lalo BID TP 01/24/21 09:00 02/05/21 08:49 Haloperidol (Haldol) 1 mg QHS PO 01/24/21 21:00 02/05/21 20:21 Sertraline HCl (Zoloft) 25 mg DAILY PO 01/25/21 09:00 01/27/21 12:00 DC 01/27/21 08:57 Sertraline HCl (Zoloft) 50 mg DAILY PO 01/28/21 09:00 02/05/21 08:48 Ropinirole HCl (Requip) 0.5 mg TID PO 01/25/21 21:00 02/05/21 20:22 Divalproex Sodium (Depakote Sprinkles) 375 mg BID PO 01/26/21 20:00 01/30/21 18:01 DC 01/30/21 09:19 Mirtazapine (Remeron) 7.5 mg QHS PO 01/27/21 21:00 01/27/21 21:00 Cancel Trazodone HCl (Desyrel) 100 mg PRN QHS PRN PO insomnia 01/27/21 19:45 01/27/21 22:39 Gabapentin (Neurontin) 100 mg BID PO 01/28/21 21:00 02/04/21 13:22 DC 02/04/21 07:43 Divalproex Sodium (Depakote Sprinkles) 500 mg BID PO 01/30/21 21:00 02/03/21 19:37 DC 02/03/21 08:56 Divalproex Sodium (Depakote Sprinkles) 625 mg BID PO 02/03/21 21:00 02/05/21 20:22 Furosemide (Lasix) 40 mg DAILY PO 02/06/21 09:00 Gabapentin (Neurontin) 100 mg TID PO 02/05/21 21:00 02/05/21 20:22 Current Medications Medications (Trade) Dose Ordered Sig/Stuart Route PRN Reason Start Time Stop Time Status Last Admin Dose Admin Gabapentin (Neurontin) 100 mg TID PO 02/05/21 21:00 02/05/21 20:22 I have reviewed the current psychotropics carefully including drug interactions. Risk benefit ratio favors no change other than as noted in my dictated progress note. Diagnosis: Problems: (1) Schizoaffective disorder, bipolar type (2) Anxiety disorder, unspecified (3) Bipolar disorder, current episode depressed, severe, with psychotic features (4) Major depressive disorder with psychotic features (5) Impulse control disorder, unspecified (6) Personality disorder, unspecified AURA HOLDER MD Feb 06, 2021 07:59
[2021-02-06] MEDS: DOCUSATE SODIUM 100 MG CAPSULE PO SCH (08:41)
[2021-02-06] MEDS: FUROSEMIDE 40 MG TABLET PO SCH (08:41)
[2021-02-06] MEDS: rOPINIRole 0.5 MG TABLET. PO SCH ×3 (08:41→21:28)
[2021-02-06] MEDS: FAMOTIDINE 20 MG TABLET PO SCH (08:41)
[2021-02-06] MEDS: FINASTERIDE 5 MG TABLET. PO SCH (08:41)
[2021-02-06] MEDS: DIVALPROEX 125 MG CAP.SPRINK PO SCH ×2 (08:41→21:28)
[2021-02-06] MEDS: SERTRALINE 50 MG TABLET. PO SCH (08:41)
[2021-02-06] MEDS: APIXABAN 5 MG TABLET. PO SCH ×2 (08:41→21:28)
[2021-02-06] MEDS: GABAPENTIN 100 MG CAPSULE. PO SCH ×3 (08:41→21:28)
[2021-02-06] MEDS: NYSTATIN TOPICAL POWDER 15GM BOTTLE. TP SCH ×2 (09:00→21:28)
[2021-02-06] MEDS: QUEtiapine 25 MG TABLET. PO SCH ×2 (13:48→16:26)
[2021-02-06 15:50] VITALS: BP 122/83
--- NOTE | 2021-02-06 21:07 | PDOC ---
Exam Note: Elier Note: Please also refer to the separate dictated note~for this date of service dictated separately.~Patient seen individually. Discussed the patient with Nursing staff reviewed the chart.~Reviewed interim history and current functioning. Reviewed vital signs,~Labs/ Radiology~and current medications noted below. Continue current treatment with the changes noted in the dictated addendum note Assessment: Vital Signs/I&O: Vital Signs Date Time Temp Pulse Resp B/P (MAP) Pulse Ox O2 Delivery O2 Flow Rate FiO2 02/06/21 15:50 97.7 83 16 122/83 (96) 100 Room Air 02/04/21 06:05 2.0 I & O 02/05/21 02/05/21 02/06/21 14:59 22:59 06:59 Intake Total 840 ml 480 ml Balance 840 ml 480 ml Labs: Laboratory Tests Test 02/06/21 06:00 SARS-CoV-2 (PCR) Not detected (NEGATIVE) Current Medications: Meds: Laboratory Tests Test 02/06/21 06:00 Coronavirus (COVID-19)(PCR) Not detected Current Medications Medications (Trade) Dose Ordered Sig/Stuart Route PRN Reason Start Time Stop Time Status Last Admin Dose Admin Acetaminophen (Tylenol) 650 mg PRN Q6HRS PRN PO MILD PAIN / TEMP > 100.3'F 01/23/21 21:45 02/06/21 01:11 Multi-Ingredient Ointment (Analgesic [place]) 1 lalo PRN QID PRN TP MUSCLE PAIN 01/23/21 21:45 Al Hydroxide/Mg Hydroxide (Mylanta Plus Xs) 15 ml PRN AFTMEALHC PRN PO DYSPEPSIA 01/23/21 21:45 Magnesium Hydroxide (Milk Of Magnesia) 2,400 mg PRN QHS PRN PO CONSTIPATION 01/23/21 21:45 Divalproex Sodium (Depakote) 250 mg BID PO 01/24/21 09:00 01/26/21 19:53 DC 01/26/21 09:09 Haloperidol (Haldol) 1 mg BID PO 01/24/21 09:00 01/24/21 19:37 DC 01/24/21 09:08 Trazodone HCl (Desyrel) 100 mg QHS PO 01/24/21 21:00 02/05/21 20:22 Apixaban (Eliquis) 5 mg BID PO 01/24/21 09:00 02/06/21 08:41 Clotrimazole (Lotrimin) 1 lalo PRN Q12HR PRN TP REDNESS 01/23/21 23:00 Docusate Sodium (Colace) 100 mg DAILY PO 01/24/21 09:00 02/06/21 08:41 Famotidine (Pepcid) 20 mg DAILY PO 01/24/21 09:00 02/06/21 08:41 Finasteride (Proscar) 5 mg DAILY PO 01/24/21 09:00 02/06/21 08:41 Furosemide (Lasix) 40 mg DAILY PO 01/24/21 09:00 02/03/21 16:28 DC 02/03/21 08:56 Metoprolol Tartrate (Lopressor) 25 mg BID PO 01/24/21 09:00 02/03/21 16:28 DC 02/03/21 08:57 Potassium Chloride (Klor-Con) 20 meq DAILY PO 01/24/21 09:00 02/03/21 16:28 DC 02/03/21 08:57 Tamsulosin HCl (Flomax) 0.4 mg DAILY PO 01/24/21 09:00 02/04/21 13:22 DC 02/04/21 07:43 Artificial Tears (Artificial Tears) 1 drop PRN Q8HRS PRN OU DRY EYE 01/23/21 23:15 Non-Formulary Medication (Cimetidine ) 200 mg BID PO 01/24/21 09:00 UNV Diltiazem HCl (Cardizem 24hr Cd) 120 mg DAILY PO 01/24/21 09:00 02/03/21 16:28 DC 02/03/21 08:56 Throat Lozenges (Cepacol Sore Throat Lozenge) 1 brayan PRN Q3HRS PRN PO SORE THROAT 01/23/21 23:15 Polyethylene Glycol (miraLAX) 17 gm QMWF PO 01/24/21 16:00 02/05/21 13:57 Info (Anti-Coagulation Monitoring By Pharmacy) 1 each PRN DAILY PRN MC PER PROTOCOL 01/23/21 23:15 Nystatin (Nystop) 1 lalo BID TP 01/24/21 09:00 02/05/21 08:49 Haloperidol (Haldol) 1 mg QHS PO 01/24/21 21:00 02/06/21 12:45 DC 02/05/21 20:21 Sertraline HCl (Zoloft) 25 mg DAILY PO 01/25/21 09:00 01/27/21 12:00 DC 01/27/21 08:57 Sertraline HCl (Zoloft) 50 mg DAILY PO 01/28/21 09:00 02/06/21 08:41 Ropinirole HCl (Requip) 0.5 mg TID PO 01/25/21 21:00 02/06/21 13:47 Divalproex Sodium (Depakote Sprinkles) 375 mg BID PO 01/26/21 20:00 01/30/21 18:01 DC 01/30/21 09:19 Mirtazapine (Remeron) 7.5 mg QHS PO 01/27/21 21:00 01/27/21 21:00 Cancel Trazodone HCl (Desyrel) 100 mg PRN QHS PRN PO insomnia 01/27/21 19:45 01/27/21 22:39 Gabapentin (Neurontin) 100 mg BID PO 01/28/21 21:00 02/04/21 13:22 DC 02/04/21 07:43 Divalproex Sodium (Depakote Sprinkles) 500 mg BID PO 01/30/21 21:00 02/03/21 19:37 DC 02/03/21 08:56 Divalproex Sodium (Depakote Sprinkles) 625 mg BID PO 02/03/21 21:00 02/06/21 08:41 Furosemide (Lasix) 40 mg DAILY PO 02/06/21 09:00 02/06/21 08:41 Gabapentin (Neurontin) 100 mg TID PO 02/05/21 21:00 02/06/21 13:47 Quetiapine Fumarate (SEROquel) 12.5 mg 0900,1300,1700 PO 02/06/21 13:45 02/06/21 16:26 Current Medications Medications (Trade) Dose Ordered Sig/Stuart Route PRN Reason Start Time Stop Time Status Last Admin Dose Admin Furosemide (Lasix) 40 mg DAILY PO 02/06/21 09:00 02/06/21 08:41 Quetiapine Fumarate (SEROquel) 12.5 mg 0900,1300,1700 PO 02/06/21 13:45 02/06/21 16:26 I have reviewed the current psychotropics carefully including drug interactions. Risk benefit ratio favors no change other than as noted in my dictated progress note. Diagnosis: Problems: (1) Schizoaffective disorder, bipolar type (2) Anxiety disorder, unspecified (3) Bipolar disorder, current episode depressed, severe, with psychotic features (4) Major depressive disorder with psychotic features (5) Impulse control disorder, unspecified (6) Personality disorder, unspecified AURA HOLDER MD Feb 06, 2021 21:07
[2021-02-06] MEDS: traZODone 100 MG TABLET. PO SCH (21:28)
[2021-02-07 06:07] VITALS: BP 116/78
--- NOTE | 2021-02-07 06:55 | PDOC ---
Exam Note: Elier Note: This note is a late entry for 02/06/2021 covers elements not covered in my initial note. Subjective: The patient was reviewed at treatment team meeting individually in the morning on 02/06/2021 with Reyna Stafford, Silvia Clark, and Alee Palencia (social media strategist), Janie Armenta (Claims Attorney), Erica, activity therapy, and Mike GAVIRIA, discussed and reviewed the chart. The patient slept 7 previous night. Average sleep 6 hours. Appetite 90%. He appears helpless, somewhat attention seeking, needy, calling out with shift change at nursing staff, constantly asking for his breakfast. He walked to the dining room with his walker, refused physical therapy and intermittently compliant with medications. Physical therapy has been discontinued due to his behaviors. He has attended all groups. Patient has been agitated at times. I met with him in his room. Review of Systems: Ambulation impaired, with walker. No CV, , pulmonary, eye, ENT system symptoms on review. Mental Status Exam: The patient is oriented to himself and situation. Speech is coherent, has some latency. Abstraction fair. Computation impaired. Language function intact. Mood and affect withdrawn. Laboratory Data: Reviewed. Impression: Schizoaffective disorder bipolar type mixed with psychotic features. Anxiety disorder unspecified. Plan: We will go ahead and start Seroquel 12.5 mg 9 a.m. 1 p.m. and 5 p.m. as a mood stabilizer. Maintain Depakote at current dosage. Check labs and valproic acid level on 02/07. Adjust to reach therapeutic level. Rest unchanged for now. Assessment: Vital Signs/I&O: Vital Signs Date Time Temp Pulse Resp B/P (MAP) Pulse Ox O2 Delivery O2 Flow Rate FiO2 02/07/21 06:07 96.9 81 16 116/78 (91) 96 Nasal Cannula 2.0 I & O 02/06/21 02/06/21 02/07/21 15:00 23:00 07:00 Intake Total 540 ml 960 ml Balance 540 ml 960 ml Current Medications: Meds: Current Medications Medications (Trade) Dose Ordered Sig/Stuart Route PRN Reason Start Time Stop Time Status Last Admin Dose Admin Acetaminophen (Tylenol) 650 mg PRN Q6HRS PRN PO MILD PAIN / TEMP > 100.3'F 01/23/21 21:45 02/06/21 21:30 Multi-Ingredient Ointment (Analgesic [place]) 1 lalo PRN QID PRN TP MUSCLE PAIN 01/23/21 21:45 Al Hydroxide/Mg Hydroxide (Mylanta Plus Xs) 15 ml PRN AFTMEALHC PRN PO DYSPEPSIA 01/23/21 21:45 Magnesium Hydroxide (Milk Of Magnesia) 2,400 mg PRN QHS PRN PO CONSTIPATION 01/23/21 21:45 Divalproex Sodium (Depakote) 250 mg BID PO 01/24/21 09:00 01/26/21 19:53 DC 01/26/21 09:09 Haloperidol (Haldol) 1 mg BID PO 01/24/21 09:00 01/24/21 19:37 DC 01/24/21 09:08 Trazodone HCl (Desyrel) 100 mg QHS PO 01/24/21 21:00 02/06/21 21:28 Apixaban (Eliquis) 5 mg BID PO 01/24/21 09:00 02/06/21 21:28 Clotrimazole (Lotrimin) 1 lalo PRN Q12HR PRN TP REDNESS 01/23/21 23:00 Docusate Sodium (Colace) 100 mg DAILY PO 01/24/21 09:00 02/06/21 08:41 Famotidine (Pepcid) 20 mg DAILY PO 01/24/21 09:00 02/06/21 08:41 Finasteride (Proscar) 5 mg DAILY PO 01/24/21 09:00 02/06/21 08:41 Furosemide (Lasix) 40 mg DAILY PO 01/24/21 09:00 02/03/21 16:28 DC 02/03/21 08:56 Metoprolol Tartrate (Lopressor) 25 mg BID PO 01/24/21 09:00 02/03/21 16:28 DC 02/03/21 08:57 Potassium Chloride (Klor-Con) 20 meq DAILY PO 01/24/21 09:00 02/03/21 16:28 DC 02/03/21 08:57 Tamsulosin HCl (Flomax) 0.4 mg DAILY PO 01/24/21 09:00 02/04/21 13:22 DC 02/04/21 07:43 Artificial Tears (Artificial Tears) 1 drop PRN Q8HRS PRN OU DRY EYE 01/23/21 23:15 Non-Formulary Medication (Cimetidine ) 200 mg BID PO 01/24/21 09:00 UNV Diltiazem HCl (Cardizem 24hr Cd) 120 mg DAILY PO 01/24/21 09:00 02/03/21 16:28 DC 02/03/21 08:56 Throat Lozenges (Cepacol Sore Throat Lozenge) 1 brayan PRN Q3HRS PRN PO SORE THROAT 01/23/21 23:15 Polyethylene Glycol (miraLAX) 17 gm QMWF PO 01/24/21 16:00 02/05/21 13:57 Info (Anti-Coagulation Monitoring By Pharmacy) 1 each PRN DAILY PRN MC PER PROTOCOL 01/23/21 23:15 Nystatin (Nystop) 1 lalo BID TP 01/24/21 09:00 02/06/21 21:28 Haloperidol (Haldol) 1 mg QHS PO 01/24/21 21:00 02/06/21 12:45 DC 02/05/21 20:21 Sertraline HCl (Zoloft) 25 mg DAILY PO 01/25/21 09:00 01/27/21 12:00 DC 01/27/21 08:57 Sertraline HCl (Zoloft) 50 mg DAILY PO 01/28/21 09:00 02/06/21 08:41 Ropinirole HCl (Requip) 0.5 mg TID PO 01/25/21 21:00 02/06/21 21:28 Divalproex Sodium (Depakote Sprinkles) 375 mg BID PO 01/26/21 20:00 01/30/21 18:01 DC 01/30/21 09:19 Mirtazapine (Remeron) 7.5 mg QHS PO 01/27/21 21:00 01/27/21 21:00 Cancel Trazodone HCl (Desyrel) 100 mg PRN QHS PRN PO insomnia 01/27/21 19:45 01/27/21 22:39 Gabapentin (Neurontin) 100 mg BID PO 01/28/21 21:00 02/04/21 13:22 DC 02/04/21 07:43 Divalproex Sodium (Depakote Sprinkles) 500 mg BID PO 01/30/21 21:00 02/03/21 19:37 DC 02/03/21 08:56 Divalproex Sodium (Depakote Sprinkles) 625 mg BID PO 02/03/21 21:00 02/06/21 21:28 Furosemide (Lasix) 40 mg DAILY PO 02/06/21 09:00 02/06/21 08:41 Gabapentin (Neurontin) 100 mg TID PO 02/05/21 21:00 02/06/21 21:28 Quetiapine Fumarate (SEROquel) 12.5 mg 0900,1300,1700 PO 02/06/21 13:45 02/06/21 16:26 Current Medications Medications (Trade) Dose Ordered Sig/Stuart Route PRN Reason Start Time Stop Time Status Last Admin Dose Admin Furosemide (Lasix) 40 mg DAILY PO 02/06/21 09:00 02/06/21 08:41 Quetiapine Fumarate (SEROquel) 12.5 mg 0900,1300,1700 PO 02/06/21 13:45 02/06/21 16:26 I have reviewed the current psychotropics carefully including drug interactions. Risk benefit ratio favors no change other than as noted in my dictated progress note. Diagnosis: Problems: (1) Schizoaffective disorder, bipolar type (2) Anxiety disorder, unspecified (3) Bipolar disorder, current episode depressed, severe, with psychotic features (4) Major depressive disorder with psychotic features (5) Impulse control disorder, unspecified (6) Personality disorder, unspecified AURA HOLDER MD Feb 07, 2021 06:55
[2021-02-07 07:40] LABS: BASO % 0 % (0-3); EOS # 0.2 x10^3/uL (0.0-0.7); EOS % 4 % (0-3); HEMATOCRIT 45.3 % (39.0-53.0); HEMOGLOBIN 14.8 g/dL (13.0-17.5); LYMPH # 1.6 x10^3/uL (1.0-4.8); LYMPH % 24 % (24-48); MEAN CORPUSCULAR HEMOGLOBIN 31 pg (25-35); MEAN CORPUSCULAR HGB CONC 33 g/dL (31-37); MEAN CORPUSCULAR VOLUME 96 fL (79-100); MONO # 0.8 x10^3/uL (0.0-1.1); MONO % 12 % (0-9); NEUT % 60 % (31-73); PLATELET COUNT 165 x10^3/uL (140-400); RED BLOOD COUNT 4.69 x10^6/uL (4.30-5.70); RED CELL DISTRIBUTION WIDTH 14.1 % (11.5-14.5); WHITE BLOOD COUNT 6.6 x10^3/uL (4.0-11.0)
--- NOTE | 2021-02-07 07:53 | PN ---
DATE: 01/28/2021 SUBJECTIVE: The patient continues to have intermittent tremor of the lower extremities along with numbness and paresthesia of the distal legs. OBJECTIVE: GENERAL: Obese male not in acute distress. VITAL SIGNS: He weighs 122.7 kilos. Blood pressure 119/65, respiratory rate 16, pulse is 58, oxygen saturation is 93% on room air, temperature 97.6. HEENT: Normocephalic, atraumatic, otherwise unremarkable. NECK: Supple, negative for carotid bruit, lymphadenopathy or thyromegaly. LUNGS: Clear to A and P. CARDIOVASCULAR: Regular rhythm. Normal S1, S2. ABDOMEN: Soft. Bowel sounds positive. EXTREMITIES: Negative for cyanosis, clubbing or pedal edema. NEUROLOGIC: The patient is a alert and oriented x 2. The speech is fluent. There is no language dysfunction. He denies hallucination or delusion. Judgment and abstracting thinking are fair. Cranial nerves are intact. No focal motor or sensory deficits. Intermittent tremor of the lower extremities were noted at rest and elevated his legs. Deep tendon reflexes were symmetric with absent Achilles responses. Gait not tested as the patient refused to use a walker. IMPRESSION: 1. Intermittent resting tremor of the lower extremities, aggravated by anxiety and elevated by raising his legs, underlying possibility including a parkinsonian tremor due to psychotropic use in the past. 2. Multiple medical problems include hypertension, hyperlipidemia, atrial fibrillation, and diabetes mellitus. Diabetic peripheral neuropathy could not be ruled out at this point, but it will be confirmed by doing a EMG/NCS of the lower extremities. The use of gabapentin may alleviate his pain in the lower extremities. 3. Multiple medical problems include depression, schizoaffective disorders, and anxiety disorders. RECOMMENDATIONS: We will continue with current management with ropinirole at 0.5 mg t.i.d. and a trial of gabapentin at 100 mg t.i.d. and increase it gradually to 300 mg t.i.d. as tolerated. HARVEY/ENE DR: Kiet TID: [id number]
[2021-02-07 07:55] LABS: ALBUMIN/GLOBULIN RATIO 0.7 (1.0-1.7); ALK PHOS 85 U/L (46-116); ALT (SGPT) 56 U/L (16-63); ANION GAP 6 (6-14); AST (SGOT) 27 U/L (15-37); BLOOD UREA NITROGEN 11 mg/dL (8-26); BUN/CREATININE RATIO 16 (6-20); CARBON DIOXIDE 34 mmol/L (21-32); CHLORIDE 102 mmol/L (98-107); CREATININE 0.7 mg/dL (0.7-1.3); GFR 110.2; GLUCOSE 80 mg/dL (70-99); POTASSIUM 4.1 mmol/L (3.5-5.1); SODIUM 142 mmol/L (136-145); TOTAL BILIRUBIN 0.6 mg/dL (0.2-1.0); TOTAL PROTEIN 7.1 g/dL (6.4-8.2)
[2021-02-07 07:59] LABS: VAL ACID 69 mcg/mL (50-100)
--- NOTE | 2021-02-07 08:00 | PN ---
DATE: 01/31/2021 SUBJECTIVE: The patient denies any new medical or neurological complaints. He stated his tremor of the lower extremities has improved in the last few days. OBJECTIVE: GENERAL: Well-developed, well-nourished male, not in acute distress. VITAL SIGNS: Blood pressure 117/75, respiratory rate 18, pulse is 68, oxygen saturation 92% on 2 liters per nasal cannula and temperature 97.5. HEENT: Normocephalic, atraumatic, otherwise unremarkable. NECK: Supple, negative for carotid bruit, lymphadenopathy or thyromegaly. LUNGS: Clear to A and P. CARDIOVASCULAR: Irregularly irregular rhythm. Normal S1, S2. ABDOMEN: Soft. Bowel sounds positive. EXTREMITIES: Negative for cyanosis, clubbing or pedal edema. NEUROLOGIC: Mental status: The patient is alert and oriented x 2. The speech is fluent. There is no language dysfunction. Memory, judgment and abstracting thinking are fair. The patient denies hallucination or delusion. Cranial nerves intact. Motor examination: No focal muscle bulk wasting. The tone is normal. The strength is 5/5 throughout. Sensory examination revealed a normal pinprick and light touch senses throughout. No motor, focal or sensory deficit. The patient has resting tremor of the lower extremities. Deep tendon reflexes were symmetric and hypoactive with absent Achilles responses. Gait: The patient able to stand up and using a walker in the room. IMPRESSION: 1. Intermittent resting tremor of the lower extremities, probably induced by anxiety versus previous use of psychotropic medications. 2. Multiple medical problems include paroxysmal atrial fibrillation, hypertension, hyperlipidemia. 3. Multiple psychiatric problems include anxiety disorder, schizoaffective disorders and depression. RECOMMENDATIONS: 1. Continue with current medical and psychiatric care. 2. We will continue with ropinirole for tremor as it is for now. HARVEY/ENE DR: Kiet TID: [id number]
[2021-02-07] MEDS: DOCUSATE SODIUM 100 MG CAPSULE PO SCH (08:43)
[2021-02-07] MEDS: POLYETHYLENE GLYCOL 3350 17 GM PACKET. PO SCH (08:43)
[2021-02-07] MEDS: FUROSEMIDE 40 MG TABLET PO SCH (08:43)
[2021-02-07] MEDS: FINASTERIDE 5 MG TABLET. PO SCH (08:43)
[2021-02-07] MEDS: QUEtiapine 25 MG TABLET. PO SCH ×3 (08:44→17:28)
[2021-02-07] MEDS: APIXABAN 5 MG TABLET. PO SCH ×2 (08:44→20:05)
[2021-02-07] MEDS: DIVALPROEX 125 MG CAP.SPRINK PO SCH ×2 (08:44→20:05)
[2021-02-07] MEDS: FAMOTIDINE 20 MG TABLET PO SCH (08:44)
[2021-02-07] MEDS: SERTRALINE 50 MG TABLET. PO SCH (08:44)
[2021-02-07] MEDS: NYSTATIN TOPICAL POWDER 15GM BOTTLE. TP SCH ×2 (08:45→20:06)
[2021-02-07] MEDS: GABAPENTIN 100 MG CAPSULE. PO SCH ×3 (08:48→20:05)
--- NOTE | 2021-02-07 09:27 | PN ---
DATE: 02/06/2021 SUBJECTIVE: The patient denies a tremor of the lower extremities for the last several days. He denies chest pain, shortness of breath or palpitation or any other neurological complaints. The patient has been on ropinirole 0.5 mg 3 times a day for resting tremor of the lower extremities. He continues to have intermittent numbness and tingling and sometimes the pain of the feet. OBJECTIVE: GENERAL: Obese male, not in acute distress. VITAL SIGNS: Blood pressure 122/83, respiratory rate 16, pulse is 83, temperature 97.7, oxygen saturation 100% on room air. HEENT: Normocephalic, atraumatic. Otherwise unremarkable. NECK: Supple, negative for carotid bruit, lymphadenopathy or thyromegaly. LUNGS: Clear to A and P. CARDIOVASCULAR: Regular rhythm. Normal S1, S2. ABDOMEN: Soft. Bowel sounds positive. EXTREMITIES: Negative cyanosis, clubbing or pedal edema. NEUROLOGIC: Mental status: The patient is alert and oriented to himself and situation. The speech is fluent. There is no language dysfunction. Memory, judgment and abstracting thinking are fair. The patient denies hallucination or delusion or suicidal ideation. Cranial nerves are intact. No focal motor or sensory deficit. The patient has not had any obvious tremor of the lower extremities. Deep tendon reflexes were symmetric with hypoactive and absent Achilles responses bilaterally. Gait: The patient uses a walker for ambulation. IMPRESSION: 1. Intermittent resting tremor of the lower extremities, probably induced by anxiety "as a side effect of psychotropic medications." 2. Multiple physical problems include hypertension, hyperlipidemia, diabetes mellitus and possible peripheral neuropathy in the lower extremity due to diabetes mellitus. 3. Multiple psychiatric problems include schizoaffective disorders, anxiety disorder and bipolar disorder as well. RECOMMENDATIONS: 1. We will discontinue ropinirole and see if the patient starting having resting tremor of the lower extremities. 3. Otherwise, we will continue with current medical and psychiatric care. ZION DR: Kiet TID: [id number]
[2021-02-07 15:27] VITALS: BP 117/64
[2021-02-07] MEDS: ACETAMINOPHEN 325 MG TABLET PO PRN (17:42)
--- NOTE | 2021-02-07 19:19 | RAD ---
3 views right foot HISTORY: Pain AP lateral oblique views There is degenerative posterior plantar spurring of the calcaneus. The visualized osseous structures appear grossly intact. There is no lytic destructive changes. IMPRESSION: No acute findings. Electronically signed by: Eleuterio Kenyon III, MD (02/07/2021 7:16 PM) [facility]
[2021-02-07] MEDS: traZODone 100 MG TABLET. PO SCH (20:05)
--- NOTE | 2021-02-07 21:07 | PDOC ---
Exam Note: Elier Note: Please also refer to the separate dictated note~for this date of service dictated separately.~Patient seen individually. Discussed the patient with Nursing staff reviewed the chart.~Reviewed interim history and current functioning. Reviewed vital signs,~Labs/ Radiology~and current medications noted below. Continue current treatment with the changes noted in the dictated addendum note Assessment: Vital Signs/I&O: Vital Signs Date Time Temp Pulse Resp B/P (MAP) Pulse Ox O2 Delivery O2 Flow Rate FiO2 02/07/21 15:27 97.0 81 20 117/64 (81) 94 02/07/21 06:07 Nasal Cannula 2.0 I & O 02/06/21 02/06/21 02/07/21 15:00 23:00 07:00 Intake Total 540 ml 960 ml Balance 540 ml 960 ml Labs: Laboratory Tests Test 02/07/21 07:12 White Blood Count 6.6 x10^3/uL (4.0-11.0) Red Blood Count 4.69 x10^6/uL (4.30-5.70) Hemoglobin 14.8 g/dL (13.0-17.5) Hematocrit 45.3 % (39.0-53.0) Mean Corpuscular Volume 96 fL (79-100) Mean Corpuscular Hemoglobin 31 pg (25-35) Mean Corpuscular Hemoglobin Concent 33 g/dL (31-37) Red Cell Distribution Width 14.1 % (11.5-14.5) Platelet Count 165 x10^3/uL (140-400) Neutrophils (%) (Auto) 60 % (31-73) Lymphocytes (%) (Auto) 24 % (24-48) Monocytes (%) (Auto) 12 % (0-9) H Eosinophils (%) (Auto) 4 % (0-3) H Basophils (%) (Auto) 0 % (0-3) Neutrophils # (Auto) 4.0 x10^3uL (1.8-7.7) Lymphocytes # (Auto) 1.6 x10^3/uL (1.0-4.8) Monocytes # (Auto) 0.8 x10^3/uL (0.0-1.1) Eosinophils # (Auto) 0.2 x10^3/uL (0.0-0.7) Basophils # (Auto) 0.0 x10^3/uL (0.0-0.2) Sodium Level 142 mmol/L (136-145) Potassium Level 4.1 mmol/L (3.5-5.1) Chloride Level 102 mmol/L (98-107) Carbon Dioxide Level 34 mmol/L (21-32) H Anion Gap 6 (6-14) Blood Urea Nitrogen 11 mg/dL (8-26) Creatinine 0.7 mg/dL (0.7-1.3) Estimated GFR (Cockcroft-Gault) 110.2 BUN/Creatinine Ratio 16 (6-20) Glucose Level 80 mg/dL (70-99) Calcium Level 10.0 mg/dL (8.5-10.1) Total Bilirubin 0.6 mg/dL (0.2-1.0) Aspartate Amino Transferase (AST) 27 U/L (15-37) Alanine Aminotransferase (ALT) 56 U/L (16-63) Alkaline Phosphatase 85 U/L (46-116) Ammonia 45 mcmol/L (11-34) H Total Protein 7.1 g/dL (6.4-8.2) Albumin 3.0 g/dL (3.4-5.0) L Albumin/Globulin Ratio 0.7 (1.0-1.7) L Valproic Acid Level 69 mcg/mL (50-100) Valproic Acid Last Dose Date 02/06/21 Valproic Acid Last Dose Time 2100 Current Medications: Meds: Laboratory Tests Test 02/07/21 07:12 White Blood Count 6.6 x10^3/uL Red Blood Count 4.69 x10^6/uL Hemoglobin 14.8 g/dL Hematocrit 45.3 % Mean Corpuscular Volume 96 fL Mean Corpuscular Hemoglobin 31 pg Mean Corpuscular Hemoglobin Concent 33 g/dL Red Cell Distribution Width 14.1 % Platelet Count 165 x10^3/uL Neutrophils (%) (Auto) 60 % Lymphocytes (%) (Auto) 24 % Monocytes (%) (Auto) 12 % Eosinophils (%) (Auto) 4 % Basophils (%) (Auto) 0 % Neutrophils # (Auto) 4.0 x10^3uL Lymphocytes # (Auto) 1.6 x10^3/uL Monocytes # (Auto) 0.8 x10^3/uL Eosinophils # (Auto) 0.2 x10^3/uL Basophils # (Auto) 0.0 x10^3/uL Sodium Level 142 mmol/L Potassium Level 4.1 mmol/L Chloride Level 102 mmol/L Carbon Dioxide Level 34 mmol/L Anion Gap 6 Blood Urea Nitrogen 11 mg/dL Creatinine 0.7 mg/dL Estimated GFR (Cockcroft-Gault) 110.2 BUN/Creatinine Ratio 16 Glucose Level 80 mg/dL Calcium Level 10.0 mg/dL Total Bilirubin 0.6 mg/dL Aspartate Amino Transf (AST/SGOT) 27 U/L Alanine Aminotransferase (ALT/SGPT) 56 U/L Alkaline Phosphatase 85 U/L Ammonia 45 mcmol/L Total Protein 7.1 g/dL Albumin 3.0 g/dL Albumin/Globulin Ratio 0.7 Valproic Acid (Depakene) Level 69 mcg/mL Valproic Acid Last Dose Date 02/06/21 Valproic Acid Last Dose Time 2100 Current Medications Medications (Trade) Dose Ordered Sig/Stuart Route PRN Reason Start Time Stop Time Status Last Admin Dose Admin Acetaminophen (Tylenol) 650 mg PRN Q6HRS PRN PO MILD PAIN / TEMP > 100.3'F 01/23/21 21:45 02/07/21 17:42 Multi-Ingredient Ointment (Analgesic [place]) 1 lalo PRN QID PRN TP MUSCLE PAIN 01/23/21 21:45 Al Hydroxide/Mg Hydroxide (Mylanta Plus Xs) 15 ml PRN AFTMEALHC PRN PO DYSPEPSIA 01/23/21 21:45 Magnesium Hydroxide (Milk Of Magnesia) 2,400 mg PRN QHS PRN PO CONSTIPATION 01/23/21 21:45 Divalproex Sodium (Depakote) 250 mg BID PO 01/24/21 09:00 01/26/21 19:53 DC 01/26/21 09:09 Haloperidol (Haldol) 1 mg BID PO 01/24/21 09:00 01/24/21 19:37 DC 01/24/21 09:08 Trazodone HCl (Desyrel) 100 mg QHS PO 01/24/21 21:00 02/07/21 20:05 Apixaban (Eliquis) 5 mg BID PO 01/24/21 09:00 02/07/21 20:05 Clotrimazole (Lotrimin) 1 lalo PRN Q12HR PRN TP REDNESS 01/23/21 23:00 Docusate Sodium (Colace) 100 mg DAILY PO 01/24/21 09:00 02/07/21 08:43 Famotidine (Pepcid) 20 mg DAILY PO 01/24/21 09:00 02/07/21 08:44 Finasteride (Proscar) 5 mg DAILY PO 01/24/21 09:00 02/07/21 08:43 Furosemide (Lasix) 40 mg DAILY PO 01/24/21 09:00 02/03/21 16:28 DC 02/03/21 08:56 Metoprolol Tartrate (Lopressor) 25 mg BID PO 01/24/21 09:00 02/03/21 16:28 DC 02/03/21 08:57 Potassium Chloride (Klor-Con) 20 meq DAILY PO 01/24/21 09:00 02/03/21 16:28 DC 02/03/21 08:57 Tamsulosin HCl (Flomax) 0.4 mg DAILY PO 01/24/21 09:00 02/04/21 13:22 DC 02/04/21 07:43 Artificial Tears (Artificial Tears) 1 drop PRN Q8HRS PRN OU DRY EYE 01/23/21 23:15 Non-Formulary Medication (Cimetidine ) 200 mg BID PO 01/24/21 09:00 UNV Diltiazem HCl (Cardizem 24hr Cd) 120 mg DAILY PO 01/24/21 09:00 02/03/21 16:28 DC 02/03/21 08:56 Throat Lozenges (Cepacol Sore Throat Lozenge) 1 brayan PRN Q3HRS PRN PO SORE THROAT 01/23/21 23:15 Polyethylene Glycol (miraLAX) 17 gm QMWF PO 01/24/21 16:00 02/07/21 08:43 Info (Anti-Coagulation Monitoring By Pharmacy) 1 each PRN DAILY PRN MC PER PROTOCOL 01/23/21 23:15 Nystatin (Nystop) 1 lalo BID TP 01/24/21 09:00 02/07/21 20:06 Haloperidol (Haldol) 1 mg QHS PO 01/24/21 21:00 02/06/21 12:45 DC 02/05/21 20:21 Sertraline HCl (Zoloft) 25 mg DAILY PO 01/25/21 09:00 01/27/21 12:00 DC 01/27/21 08:57 Sertraline HCl (Zoloft) 50 mg DAILY PO 01/28/21 09:00 02/07/21 08:44 Ropinirole HCl (Requip) 0.5 mg TID PO 01/25/21 21:00 02/07/21 07:21 DC 02/06/21 21:28 Divalproex Sodium (Depakote Sprinkles) 375 mg BID PO 01/26/21 20:00 01/30/21 18:01 DC 01/30/21 09:19 Mirtazapine (Remeron) 7.5 mg QHS PO 01/27/21 21:00 01/27/21 21:00 Cancel Trazodone HCl (Desyrel) 100 mg PRN QHS PRN PO insomnia 01/27/21 19:45 01/27/21 22:39 Gabapentin (Neurontin) 100 mg BID PO 01/28/21 21:00 02/04/21 13:22 DC 02/04/21 07:43 Divalproex Sodium (Depakote Sprinkles) 500 mg BID PO 01/30/21 21:00 02/03/21 19:37 DC 02/03/21 08:56 Divalproex Sodium (Depakote Sprinkles) 625 mg BID PO 02/03/21 21:00 02/07/21 20:05 Furosemide (Lasix) 40 mg DAILY PO 02/06/21 09:00 02/07/21 08:43 Gabapentin (Neurontin) 100 mg TID PO 02/05/21 21:00 02/07/21 20:05 Quetiapine Fumarate (SEROquel) 12.5 mg 0900,1300,1700 PO 02/06/21 13:45 02/07/21 17:28 I have reviewed the current psychotropics carefully including drug interactions. Risk benefit ratio favors no change other than as noted in my dictated progress note. Diagnosis: Problems: (1) Schizoaffective disorder, bipolar type (2) Anxiety disorder, unspecified (3) Bipolar disorder, current episode depressed, severe, with psychotic features (4) Major depressive disorder with psychotic features (5) Impulse control disorder, unspecified (6) Personality disorder, unspecified AURA HOLDER MD Feb 07, 2021 21:07
[2021-02-08 05:58] VITALS: BP 152/93
--- NOTE | 2021-02-08 07:54 | PDOC ---
Exam Note: Elier Note: This note is a late entry for 02/07/2021 covers elements not covered in my initial note. Subjective: The patient was seen individually in the evening of 02/07/2021 with Lissette GAVIRIA, discussed and reviewed the chart. The patient slept 6-1/[address] Barrera has stopped the patients ReQuip as we had changed his Haldol to Seroquel. Valproic acid level is 69, ammonia has improved from 53 to 45. Overall the patient remains somewhat anxious, restless, but more redirectable. Review of Systems: Ambulation impaired, in wheelchair. I met with him outside his room. No CV, , pulmonary, eye, ENT system symptoms on review. Mental Status Exam: The patient is oriented to himself and at times situation. Speech is coherent, low in volume. Abstraction fair. Computation impaired. Language function intact. Mood and affect somewhat withdrawn, anxious, labile at times. Laboratory Data: Reviewed. Impression: Schizoaffective disorder bipolar type mixed with psychotic features. Anxiety disorder unspecified. Plan: Continue current psychotropics. Maintain Depakote current dosage level therapeutic. Maintain Seroquel, gabapentin, Zoloft. Assessment: Vital Signs/I&O: Vital Signs Date Time Temp Pulse Resp B/P (MAP) Pulse Ox O2 Delivery O2 Flow Rate FiO2 02/08/21 05:58 97.3 94 18 152/93 (112) 91 Nasal Cannula 2.0 I & O 02/07/21 02/07/21 02/08/21 15:00 23:00 07:00 Intake Total 1040 ml 840 ml Balance 1040 ml 840 ml Current Medications: Meds: Current Medications Medications (Trade) Dose Ordered Sig/Stuart Route PRN Reason Start Time Stop Time Status Last Admin Dose Admin Acetaminophen (Tylenol) 650 mg PRN Q6HRS PRN PO MILD PAIN / TEMP > 100.3'F 01/23/21 21:45 02/07/21 17:42 Multi-Ingredient Ointment (Analgesic [place]) 1 lalo PRN QID PRN TP MUSCLE PAIN 01/23/21 21:45 Al Hydroxide/Mg Hydroxide (Mylanta Plus Xs) 15 ml PRN AFTMEALHC PRN PO DYSPEPSIA 01/23/21 21:45 Magnesium Hydroxide (Milk Of Magnesia) 2,400 mg PRN QHS PRN PO CONSTIPATION 01/23/21 21:45 Divalproex Sodium (Depakote) 250 mg BID PO 01/24/21 09:00 01/26/21 19:53 DC 01/26/21 09:09 Haloperidol (Haldol) 1 mg BID PO 01/24/21 09:00 01/24/21 19:37 DC 01/24/21 09:08 Trazodone HCl (Desyrel) 100 mg QHS PO 01/24/21 21:00 02/07/21 20:05 Apixaban (Eliquis) 5 mg BID PO 01/24/21 09:00 02/07/21 20:05 Clotrimazole (Lotrimin) 1 lalo PRN Q12HR PRN TP REDNESS 01/23/21 23:00 Docusate Sodium (Colace) 100 mg DAILY PO 01/24/21 09:00 02/07/21 08:43 Famotidine (Pepcid) 20 mg DAILY PO 01/24/21 09:00 02/07/21 08:44 Finasteride (Proscar) 5 mg DAILY PO 01/24/21 09:00 02/07/21 08:43 Furosemide (Lasix) 40 mg DAILY PO 01/24/21 09:00 02/03/21 16:28 DC 02/03/21 08:56 Metoprolol Tartrate (Lopressor) 25 mg BID PO 01/24/21 09:00 02/03/21 16:28 DC 02/03/21 08:57 Potassium Chloride (Klor-Con) 20 meq DAILY PO 01/24/21 09:00 02/03/21 16:28 DC 02/03/21 08:57 Tamsulosin HCl (Flomax) 0.4 mg DAILY PO 01/24/21 09:00 02/04/21 13:22 DC 02/04/21 07:43 Artificial Tears (Artificial Tears) 1 drop PRN Q8HRS PRN OU DRY EYE 01/23/21 23:15 Non-Formulary Medication (Cimetidine ) 200 mg BID PO 01/24/21 09:00 UNV Diltiazem HCl (Cardizem 24hr Cd) 120 mg DAILY PO 01/24/21 09:00 02/03/21 16:28 DC 02/03/21 08:56 Throat Lozenges (Cepacol Sore Throat Lozenge) 1 brayan PRN Q3HRS PRN PO SORE THROAT 01/23/21 23:15 Polyethylene Glycol (miraLAX) 17 gm QMWF PO 01/24/21 16:00 02/07/21 08:43 Info (Anti-Coagulation Monitoring By Pharmacy) 1 each PRN DAILY PRN MC PER PROTOCOL 01/23/21 23:15 Nystatin (Nystop) 1 lalo BID TP 01/24/21 09:00 02/07/21 20:06 Haloperidol (Haldol) 1 mg QHS PO 01/24/21 21:00 02/06/21 12:45 DC 02/05/21 20:21 Sertraline HCl (Zoloft) 25 mg DAILY PO 01/25/21 09:00 01/27/21 12:00 DC 01/27/21 08:57 Sertraline HCl (Zoloft) 50 mg DAILY PO 01/28/21 09:00 02/07/21 08:44 Ropinirole HCl (Requip) 0.5 mg TID PO 01/25/21 21:00 02/07/21 07:21 DC 02/06/21 21:28 Divalproex Sodium (Depakote Sprinkles) 375 mg BID PO 01/26/21 20:00 01/30/21 18:01 DC 01/30/21 09:19 Mirtazapine (Remeron) 7.5 mg QHS PO 01/27/21 21:00 01/27/21 21:00 Cancel Trazodone HCl (Desyrel) 100 mg PRN QHS PRN PO insomnia 01/27/21 19:45 01/27/21 22:39 Gabapentin (Neurontin) 100 mg BID PO 01/28/21 21:00 02/04/21 13:22 DC 02/04/21 07:43 Divalproex Sodium (Depakote Sprinkles) 500 mg BID PO 01/30/21 21:00 02/03/21 19:37 DC 02/03/21 08:56 Divalproex Sodium (Depakote Sprinkles) 625 mg BID PO 02/03/21 21:00 02/07/21 20:05 Furosemide (Lasix) 40 mg DAILY PO 02/06/21 09:00 02/07/21 08:43 Gabapentin (Neurontin) 100 mg TID PO 02/05/21 21:00 02/07/21 20:05 Quetiapine Fumarate (SEROquel) 12.5 mg 0900,1300,1700 PO 02/06/21 13:45 02/07/21 17:28 I have reviewed the current psychotropics carefully including drug interactions. Risk benefit ratio favors no change other than as noted in my dictated progress note. Diagnosis: Problems: (1) Schizoaffective disorder, bipolar type (2) Anxiety disorder, unspecified (3) Bipolar disorder, current episode depressed, severe, with psychotic features (4) Major depressive disorder with psychotic features (5) Impulse control disorder, unspecified (6) Personality disorder, unspecified AURA HOLDER MD Feb 08, 2021 07:54
[2021-02-08] MEDS: FAMOTIDINE 20 MG TABLET PO SCH (08:29)
[2021-02-08] MEDS: DIVALPROEX 125 MG CAP.SPRINK PO SCH ×2 (08:29→20:12)
[2021-02-08] MEDS: FINASTERIDE 5 MG TABLET. PO SCH (08:29)
[2021-02-08] MEDS: APIXABAN 5 MG TABLET. PO SCH ×2 (08:30→20:12)
[2021-02-08] MEDS: GABAPENTIN 100 MG CAPSULE. PO SCH ×3 (08:30→20:12)
[2021-02-08] MEDS: SERTRALINE 50 MG TABLET. PO SCH (08:30)
[2021-02-08] MEDS: FUROSEMIDE 40 MG TABLET PO SCH (08:30)
[2021-02-08] MEDS: DOCUSATE SODIUM 100 MG CAPSULE PO SCH (08:30)
[2021-02-08] MEDS: NYSTATIN TOPICAL POWDER 15GM BOTTLE. TP SCH ×2 (08:30→20:13)
[2021-02-08] MEDS: QUEtiapine 25 MG TABLET. PO SCH ×3 (08:30→16:35)
[2021-02-08 15:11] VITALS: BP 121/84
[2021-02-08] MEDS: traZODone 100 MG TABLET. PO SCH (20:12)
[2021-02-09] MEDS: ACETAMINOPHEN 325 MG TABLET PO PRN ×2 (00:28→17:53)
--- NOTE | 2021-02-09 02:07 | PN ---
DATE: 02/08/2021 SUBJECTIVE: The patient was seen today, met with the staff. Chart reviewed and also covering for Dr. Mathias. Staff reports increased behavior problems, attention seeking, overweight, feeling helpless and also complaining of shortness of breath and panic attacks. Staff reports no falls. OBSERVATION: VITAL SIGNS: Temperature 97.3, blood pressure 152/93, pulse 94, respirations 18, O2 sat 91%. GENERAL: The patient is not having any major behavior problems apart from reported. The patient is compliant with the treatment. LABORATORY DATA: The patient's lab reviewed. MEDICATIONS: The patient's medications include Seroquel 12.5 mg 3 times a day, Lasix 40 mg daily, gabapentin 100 mg t.i.d., Depakote 625 mg twice a day, Zoloft 50 mg daily, trazodone 100 mg at night p.r.n. and trazodone 100 mg at night. The patient is not having any side e. ASSESSMENT: Schizoaffective disorder, bipolar type. PLAN: Continue with the current treatment plan. LENGTH OF STAY: 7-[address]: Elkin TID: [id number] MTDD
[2021-02-09 05:28] VITALS: BP 136/81
[2021-02-09] MEDS: FINASTERIDE 5 MG TABLET. PO SCH (08:27)
[2021-02-09] MEDS: GABAPENTIN 100 MG CAPSULE. PO SCH ×3 (08:27→19:52)
[2021-02-09] MEDS: DIVALPROEX 125 MG CAP.SPRINK PO SCH ×2 (08:27→19:51)
[2021-02-09] MEDS: APIXABAN 5 MG TABLET. PO SCH ×2 (08:27→19:51)
[2021-02-09] MEDS: SERTRALINE 50 MG TABLET. PO SCH (08:27)
[2021-02-09] MEDS: FUROSEMIDE 40 MG TABLET PO SCH (08:27)
[2021-02-09] MEDS: QUEtiapine 25 MG TABLET. PO SCH ×3 (08:28→17:32)
[2021-02-09] MEDS: NYSTATIN TOPICAL POWDER 15GM BOTTLE. TP SCH ×2 (08:28→21:00)
[2021-02-09] MEDS: FAMOTIDINE 20 MG TABLET PO SCH (08:28)
[2021-02-09] MEDS: DOCUSATE SODIUM 100 MG CAPSULE PO SCH (08:28)
[2021-02-09 15:37] VITALS: BP 117/87
[2021-02-09] MEDS: traZODone 100 MG TABLET. PO SCH (19:52)
--- NOTE | 2021-02-09 20:56 | PN ---
DATE: 02/09/2021 SUBJECTIVE: The patient was seen today, met with the staff. Chart was reviewed and I am covering for Dr. Mathias. The patient continues to be withdrawn, slow mentation, decreased psychomotor activity and also feeling helpless. She is also complaining of shortness of breath and also having panic attacks. Staff reports he is attention seeking, having multiple physical complaints. The patient is also angry, irritable and bruce. OBSERVATION: VITAL SIGNS: Temperature 97.3, blood pressure 136/81, pulse 70, respirations 18, O2 sat 91%. GENERAL: Slept about 7 hours last night. The patient's appetite is fair. LABORATORY DATA: The patient's lab reviewed. CURRENT MEDICATIONS: The patient's current medications include Seroquel 12.5 mg 3 times a day, Lasix 40 mg daily, gabapentin 100 mg t.i.d., Depakote 625 mg twice a day, Zoloft 50 mg daily and trazodone 100 mg at night and also p.r.n. at night. The patient is not having any side effects. ASSESSMENT: Schizoaffective disorder, bipolar type. PLAN: To continue with the treatment. LENGTH OF STAY: Seven days. LIANET DR: Elkin TID: [id number]
--- NOTE | 2021-02-09 23:02 | PN ---
DATE: 02/09/2021 REFERRING PHYSICIAN: Dr. Mathias. SUBJECTIVE: The patient denies any new neurological complaints. He denies tremor of the lower extremities. OBJECTIVE: GENERAL: Well-developed, well-nourished male, not in acute distress. VITAL SIGNS: Blood pressure 117/87, respiratory rate 16, pulse is 90 and regular, oxygen saturation 93% on room air. HEENT: Normocephalic, atraumatic. otherwise unremarkable. NECK: Supple. Negative for carotid bruit, lymphadenopathy or thyromegaly. LUNGS: Clear to A and P. CARDIOVASCULAR: Regular rate and rhythm. Normal S1, S2. ABDOMEN: Soft. Bowel sounds positive. EXTREMITIES: Negative for cyanosis, clubbing or pedal edema. NEUROLOGIC: Mental status: The patient is alert and oriented to himself and situation. Speech is fluent. There is no language dysfunction. Memory, judgment and abstracting thinking are fair. The patient denies hallucination or delusion. Cranial nerves are intact. No focal motor or sensory deficit. Deep tendon reflexes were symmetric and hypoactive with absent Achilles responses. Gait: The patient uses a walker for ambulation. LABORATORY DATA: From 02/07/2021 revealed white blood cells of 6.6 thousand, hemoglobin 14.8, hematocrit 45.3, platelet count 165,000. Chemistry revealed sodium 142, potassium 4.1, chloride 102, CO2 of 34, BUN 11, creatinine 0.7, glucose 80, calcium 10. Liver enzymes are normal. IMPRESSION: 1. Intermittent tremor of the lower extremities -- resolved. Etiology probably due to underlying anxiety disorder versus a side effect of psychotropic medications. 2. Multiple medical problems includes hypertension, hyperlipidemia, diabetes mellitus, peripheral neuropathy in the lower extremities may have contributed to the intermittent pain and paresthesia. 3. Multiple psychiatric problems include schizoaffective disorders, anxiety disorders and bipolar disorders as well. RECOMMENDATIONS: Continue with current medical and psychiatric care. The patient is neurologically stable. SUE DR: Kiet TID: [id number]
[2021-02-10] MEDS: ACETAMINOPHEN 325 MG TABLET PO PRN ×2 (00:03→20:08)
[2021-02-10 05:50] VITALS: BP 104/69
[2021-02-10] MEDS: FAMOTIDINE 20 MG TABLET PO SCH (08:49)
[2021-02-10] MEDS: GABAPENTIN 100 MG CAPSULE. PO SCH ×3 (08:49→20:06)
[2021-02-10] MEDS: APIXABAN 5 MG TABLET. PO SCH ×2 (08:49→20:06)
[2021-02-10] MEDS: DIVALPROEX 125 MG CAP.SPRINK PO SCH ×2 (08:49→20:07)
[2021-02-10] MEDS: SERTRALINE 50 MG TABLET. PO SCH (08:49)
[2021-02-10] MEDS: DOCUSATE SODIUM 100 MG CAPSULE PO SCH (08:49)
[2021-02-10] MEDS: FINASTERIDE 5 MG TABLET. PO SCH (08:49)
[2021-02-10] MEDS: FUROSEMIDE 40 MG TABLET PO SCH (08:50)
[2021-02-10] MEDS: POLYETHYLENE GLYCOL 3350 17 GM PACKET. PO SCH (08:50)
[2021-02-10] MEDS: QUEtiapine 25 MG TABLET. PO SCH ×3 (08:50→17:22)
[2021-02-10] MEDS: NYSTATIN TOPICAL POWDER 15GM BOTTLE. TP SCH ×2 (08:55→20:07)
[2021-02-10 15:35] VITALS: BP 118/80
[2021-02-10] MEDS: traZODone 100 MG TABLET. PO SCH (20:07)
--- NOTE | 2021-02-11 00:53 | PN ---
DATE: 02/10/2021 SUBJECTIVE: The patient was seen today, met with the staff, chart reviewed. The patient's behavior has improved. Staff reports no major behavior problems except periods where he will become demanding, yelling out and also helpless. The patient continues to be withdrawn, isolative to self. The patient currently on wheelchair. The patient also having panic attacks and also having mood swings. OBSERVATION: VITAL SIGNS: Temperature 97.5, blood pressure 104/69, pulse 94, respirations 18, O2 sat 94%. GENERAL: Slept about 6 hours last night. The patient's appetite is fair. LABORATORY DATA: The patient's lab reviewed. CURRENT MEDICATIONS: The patient's current medications include Seroquel 12.5 mg 3 times a day, Lasix 40 mg daily, gabapentin 100 mg t.i.d., Depakote 625 mg twice a day, Zoloft 50 mg daily, and trazodone 100 mg at night and also 100 mg at bedtime p.r.n. The patient denies of any side effects. ASSESSMENT: Schizoaffective disorder, bipolar type. PLAN: To continue with the treatment. LENGTH OF STAY: Five to seven days. EVELIO DR: Elkin TID: [id number]
[2021-02-11 05:39] VITALS: BP 131/82
[2021-02-11] MEDS: NYSTATIN TOPICAL POWDER 15GM BOTTLE. TP SCH ×2 (09:00→21:15)
[2021-02-11] MEDS: GABAPENTIN 100 MG CAPSULE. PO SCH ×3 (11:01→21:14)
[2021-02-11] MEDS: DOCUSATE SODIUM 100 MG CAPSULE PO SCH (11:01)
[2021-02-11] MEDS: FAMOTIDINE 20 MG TABLET PO SCH (11:01)
[2021-02-11] MEDS: QUEtiapine 25 MG TABLET. PO SCH ×3 (11:01→16:41)
[2021-02-11] MEDS: SERTRALINE 50 MG TABLET. PO SCH (11:01)
[2021-02-11] MEDS: APIXABAN 5 MG TABLET. PO SCH ×2 (11:01→21:14)
[2021-02-11] MEDS: DIVALPROEX 125 MG CAP.SPRINK PO SCH ×2 (11:02→21:14)
[2021-02-11] MEDS: FUROSEMIDE 40 MG TABLET PO SCH (11:02)
[2021-02-11] MEDS: FINASTERIDE 5 MG TABLET. PO SCH (11:02)
[2021-02-11 15:07] VITALS: BP 105/56
[2021-02-11] MEDS: traZODone 100 MG TABLET. PO SCH (21:14)
--- NOTE | 2021-02-12 00:20 | PN ---
DATE: 02/11/2021 SUBJECTIVE: The patient was seen today, met with the staff, chart reviewed. Staff reports some improvement. Continues to show fluctuating behaviors, mostly increased anxiety, angry outbursts and also feeling helpless. He also has a tendency to isolate himself. The patient continues to show marked psychomotor retardation. The patient has not verbalized of having any panic attacks. OBSERVATION: VITAL SIGNS: Temperature 97.7, blood pressure 131/82, pulse 84, respirations 16, O2 sat 92%. GENERAL: Slept about 4 hours last night. The patient's appetite is fair. LABORATORY DATA: The patient's lab reviewed. CURRENT MEDICATIONS: He is on Seroquel 12.5 mg 3 times a day, Lasix 40 mg daily, gabapentin 100 mg t.i.d., Depakote 625 mg twice a day, Zoloft 50 mg daily and trazodone 100 mg at night and 100 mg at bedtime p.r.n. He denies of any side effects to medications. ASSESSMENT: Schizoaffective disorder, bipolar type. PLAN: To continue with the treatment. LENGTH OF STAY: Five days. LIANET DR: Elkin TID: [id number]
[2021-02-12] MEDS ORDERED: DIVA125C2 PO (00:55)
[2021-02-12] MEDS ORDERED: ACET325T21 PO (01:05)
[2021-02-12] MEDS ORDERED: GABA-585 PO (01:06)
[2021-02-12] MEDS ORDERED: GABA600T7 PO (01:06)
[2021-02-12] MEDS ORDERED: MAG-115 PO (01:07)
[2021-02-12] MEDS ORDERED: MAGN24003 PO (01:08)
[2021-02-12] MEDS ORDERED: TROL86CR TP (01:09)
[2021-02-12] MEDS ORDERED: NYST15PO9 TP (01:10)
[2021-02-12] MEDS ORDERED: SERT50TA PO (01:13)
[2021-02-12] MEDS ORDERED: QUET25TA5 PO (01:13)
[2021-02-12] MEDS ORDERED: TRAZ-125 PO (01:14)
[2021-02-12 06:04] VITALS: BP 118/79
[2021-02-12] MEDS: APIXABAN 5 MG TABLET. PO SCH (08:45)
[2021-02-12] MEDS: DIVALPROEX 125 MG CAP.SPRINK PO SCH (08:45)
[2021-02-12] MEDS: FUROSEMIDE 40 MG TABLET PO SCH (08:45)
[2021-02-12] MEDS: GABAPENTIN 100 MG CAPSULE. PO SCH (08:45)
[2021-02-12] MEDS: FINASTERIDE 5 MG TABLET. PO SCH (08:45)
[2021-02-12] MEDS: SERTRALINE 50 MG TABLET. PO SCH (08:45)
[2021-02-12] MEDS: QUEtiapine 25 MG TABLET. PO SCH (08:45)
[2021-02-12] MEDS: FAMOTIDINE 20 MG TABLET PO SCH (08:45)
[2021-02-12] MEDS: DOCUSATE SODIUM 100 MG CAPSULE PO SCH (08:45)
[2021-02-12] MEDS: NYSTATIN TOPICAL POWDER 15GM BOTTLE. TP SCH (09:00)
[2021-02-12] MEDS ORDERED: BENZ1LOZ48 PO (09:48)
[2021-02-12] MEDS ORDERED: METH85CR TP (09:50)
[2021-02-12] MEDS ORDERED: POLY15DR27 OU (09:51)
--- NOTE | 2021-02-12 20:22 | DS ---
DATE OF DISCHARGE: 02/12/2021 FINAL DIAGNOSES: AXIS I: 1. Schizoaffective disorder, bipolar type, depressed. 2. Generalized anxiety disorder. 3. Impulse control disorder, unspecified. AXIS II: None. AXIS III: Hypertension, hyperlipidemia, type 2 diabetes mellitus, atrial fibrillation, obesity and gait impairment. REASON FOR ADMISSION: This 75-year-old male was referred from [facility] by his primary care physician and also the psychiatrist and was evaluated at the [facility] because of an acute exacerbation of his schizoaffective disorder, bipolar type depressed. The patient's behavior has gotten worse progressively to the point that he is becoming more hopeless, helpless, worthless and making suicidal statements including plan to jump out of a moving van. The patient was medically stable on admission except he had some decreased oxygen saturation. CHIEF COMPLAINT: "I'm depressed, I'm having mood swings." HOSPITAL COURSE: Staff observed that he has been having mood swings, irritability, increased agitation, obsessive compulsive thinking and also social withdrawal and slow to respond to questions and also moderate constriction of affect. The patient was involved in the program including individual therapy, group therapy, activity therapy. The patient also had a lab workup including CBC, chem profile, urinalysis. The patient also had x-ray of foot, which showed no acute findings. The patient's ammonia level was slightly high on admission 53. The patient's carbon dioxide was 34. The patient's liver enzymes were slightly elevated. The patient's glucose level was 126. The patient's lipid profile was within normal range. The patient's hemoglobin A1c was 5.9. The patient did participate in most of the activities, but he was withdrawn most of the time, social isolation, constricted affect and also slow response secondary to decreased psychomotor activity. The patient's current medications included Seroquel 12.5 mg 3 times a day, Lasix 40 mg daily, gabapentin 100 mg t.i.d., Depakote 625 mg twice a day, Zoloft 50 mg daily, trazodone 100 mg at night p.r.n. for sleep and also trazodone 100 mg at night. The patient was also on MiraLax, statin, Proscar, Pepcid, Colace. He was also on Eliquis 5 mg twice a day. He was also on acetaminophen 650 mg q. 4 hours p.r.n. for pain. The patient's Depakote level was in therapeutic range at 69. AFTERCARE PLAN: The patient at the time of discharge medically stable, less depressed. No evidence of any psychotic symptoms. The patient continues to be withdrawn, isolative and also slow to respond to questions. The patient will be returning to [facility]. JONATAN/JOSE DR: Elkin TID: [id number]
== END 2021-02-12 10:59 | DRG 885 ==
LOC: GEROPSY 20:45
PROVIDERS: ADMIT Psychiatry & Neurology Psychiatry; ATTEND Psychiatry & Neurology Psychiatry
DX: F25.0 Schizoaffective disorder, bipolar type (principal); R45.851 Suicidal ideations; Z68.41 Body mass index [BMI] 40.0-44.9, adult; E11.42 Type 2 diabetes mellitus with diabetic polyneuropathy; E66.9 Obesity, unspecified; E78.5 Hyperlipidemia, unspecified; F21 Schizotypal disorder; F41.0 Panic disorder [episodic paroxysmal anxiety]; F41.1 Generalized anxiety disorder; Z20.822 Contact with and (suspected) exposure to COVID-19; F60.1 Schizoid personality disorder; F63.9 Impulse disorder, unspecified; G20 Parkinson's disease; I10 Essential (primary) hypertension; I48.0 Paroxysmal atrial fibrillation; N40.0 Benign prostatic hyperplasia without lower urinary tract symptoms; Z53.20 Procedure and treatment not carried out because of patient's decision for unspecified reasons; Z79.01 Long term (current) use of anticoagulants; Z79.899 Other long term (current) drug therapy; Z91.81 History of falling; Z88.8 Allergy status to other drugs, medicaments and biological substances
CPT/HCPCS: 36415; 73630; 80053; 80061; 80164; 81001; 82140; 82306; 82607; 82947; 83036; 83540; 83550; 83735; 84436; 84443; 84480; 85025; 85379; 86592; 93005; U0003; 97110; 97116; 97530; 97535